=== PATIENT | female | born 1970 | race Asian ===

== ENCOUNTER → 2018-01-06 08:00 | Outpatient (CLI) | payer OTHER, SELFPAY ==
--- NOTE | 2018-01-06 08:04 | HPBI_ITS ---
MAMMOGRAPHY - BILATERAL SCREENING REASON FOR EXAM: Female, 47 years old. Routine annual screening examination. PERTINENT HISTORY: Non-contributory. TECHNIQUE: Digital bilateral breast vandana (3D mammographic acquisition) in the CC and MLO projections. 2-D mediolateral oblique (MLO) and craniocaudad (CC) views of both breasts were obtained. CAD: Full Field Digital Mammography with Computer Added Detection was performed. COMPARISON: None. Baseline examination. FINDINGS: Breast Composition: The breasts are heterogeneously dense, which may obscure small masses. There are no dominant masses or suspicious calcifications. Small benign-appearing bilateral axillary lymph nodes. No other significant abnormalities are identified. HPBI/SCREENING MAMM (CAD), BILAT IMPRESSION: Negative screening mammogram. Yearly followup mammogram recommended. (A) ASSESSMENT CATEGORY: BIRADS Category 2: Benign. A letter regarding these results will be sent to the patient by the facility within 30 days. Approximately 10% of breast cancers are not detected by mammography. A normal mammogram should not delay biopsy of a clinically suspicious abnormality. [id number] Electronically Signed: Moise Sandy MD at 8:15 EDT Tel [phone], Service support ,
== END ==
PROVIDERS: Family Provider Nurse Practitioner; PCP Nurse Practitioner; Visit Provider Nurse Practitioner
DX: Z12.31 Encounter for screening mammogram for malignant neoplasm of breast (principal)
CPT/HCPCS: 77063; 77067

== ENCOUNTER → 2018-05-15 13:30 | Outpatient (CLI) | payer OTHER, SELFPAY ==
[2018-05-15 13:52] LABS: Ferritin 12 ng/mL (8-252); Iron 40 ug/dL (50-170)
== END ==
PROVIDERS: Family Provider Nurse Practitioner; PCP Nurse Practitioner; Visit Provider Nurse Practitioner
DX: D64.9 Anemia, unspecified (principal); E55.9 Vitamin D deficiency, unspecified
CPT/HCPCS: 82728; 83540

== ENCOUNTER → 2018-07-16 12:16 | Outpatient (CLI) | payer OTHER, SELFPAY ==
[2018-07-16 13:27] LABS: Ferritin 20 ng/mL (8-252); Iron 28 ug/dL (50-170)
== END ==
LOC: LAB 12:18
PROVIDERS: Family Provider Nurse Practitioner; PCP Nurse Practitioner; Visit Provider Nurse Practitioner
DX: I10 Essential (primary) hypertension (principal)
CPT/HCPCS: 82728; 83540

== ENCOUNTER → 2018-09-11 09:03 | Outpatient (CLI) | payer OTHER, SELFPAY | LOC: LABSPEC 09:04 | PROVIDERS: Family Provider Nurse Practitioner; PCP Nurse Practitioner; Visit Provider Family Medicine | DX: M54.9 Dorsalgia, unspecified (principal) | CPT/HCPCS: 87086; 87088; 87186 ==

== ENCOUNTER → 2018-10-10 15:53 | Outpatient (CLI) | payer OTHER, SELFPAY ==
[2018-10-10 17:37] LABS: Hematocrit 40.6 % (37-47); Hemoglobin 13.1 g/dl (12.0-15.0); Mean Corp Hgb Conc 32.3 g/gl (32-36); Mean Corpuscular Hgb 26.7 pg (27.0-32.0); Mean Corpuscular Volume 82.9 fL (81-99); Mean Platelet Vol. 11.7 fl (6.2-12.0); Platelet Count 251 K/mm3 (150-450); RBC Distribution Width CV 13.7 % (11.6-14.6); RBC Distribution Width SD 40.8 fl (35.1-43.9); RET-HE 27.7 pg (30-35); Reticulocyte Count 1.44 % (0.5-1.5); White Blood Count 8.2 K/mm3 (4.4-11.0)
[2018-10-10 17:38] LABS: Scan Indicated on CBC? Y/N NO
[2018-10-10 18:01] LABS: ALB/GLOB Ratio 0.8 RATIO (0.9-2.4); AST(SGOT) 14 U/L (15-37); Alanine Aminotransfer ALT/SGPT 18 U/L (13-56); Albumin, Serum 3.4 g/dL (3.2-5.0); Alkaline Phosphatase 77 U/L (45-117); Anion Gap 8 (5-15); BUN 11 mg/dL (7-18); BUN/Creat Ratio 12.9 RATIO (10-20); Calcium,Total 8.2 mg/dL (8.5-10.1); Chloride 109 mmol/L (98-107); Creatinine, Serum 0.85 mg/dL (0.55-1.02); EST Glomerular Filtration Rate 76 mL/min (>60); Erythrocyte Sedimentation Rate 19 mm/hr (0-20); Est Glom Filt Rate - Afr Amer 92 mL/min (>60); Ferritin 6 ng/mL (8-252); Glucose 97 mg/dL (74-106); Iron 40 ug/dL (50-170); Iron Binding Capacity,Total 323 ug/dL (250-450); Potassium 3.9 mmol/L (3.5-5.1); Protein, Total 7.4 g/dL (6.4-8.2); Sodium Level 141 mmol/L (136-145); Thyroid Stim Hormone (TSH) 0.76 uIU/mL (0.358-3.74)
[2018-10-10 18:02] LABS: Vitamin B12 577 pg/mL (211-911); Vitamin D,25 Hydroxy 24.8 ng/mL (29.95-100.01)
--- OUTSIDE RECORDS SUMMARY | 2018-11-26 21:43 | XMS RPT_ITS | Continuity of Care Document ---
:1970 Author Organization [facility] Address [facility] [address] [place] [address] Phone Care Team Providers Name Role Phone Nellie Zaman CNP Unavailable Tanphaichitr - Benavides, Papito Unavailable Isiah Villatoro MD Unavailable Toni Reyes Unavailable Jamir Giordano Unavailable Dr. Kne Todd MD Unavailable Diane Bourgeois Unavailable Unavailable Elle Pugh LPN Unavailable Unavailable Navya Angeles Unavailable Unavailable Jaun Piedra Unavailable Unavailable Sol Robb Unavailable Unavailable Unavailable Unavailable Problems Name Dates Details Abnormal EKG (R94.31, 794.31) Status: Active Allergic to food (Renamed from Food allergy) (Z91.018, V15.05) Comments: ? wheat and what in carackers Status: Active Anemia (D64.9, 285.9) Comments: pt heavy first two days of menses like a bucket, went back to [place], he will watch but continue with iron ferrous fumeraterecent heavy periods Status: Active Anxiety (F41.9, 300.00) Comments: not bad now. no panic attack or nervousness. Status: Active Atypical squamous cells of undetermined significance (ASCUS) on Papanicolaou smear of cervix (R87.610, 795.01) Comments: 04/12 Status: Active BMI 27.0-27.9,adult (Z68.27, V85.23) Status: Active BMI 27.0-27.9,adult (Z68.27, V85.23) Status: Active BMI 28.0-28.9,adult (Z68.28, V85.24) Status: Active Chest pain (R07.9, 786.50) Comments: good now and ekg and ezymes good. not think need sttress will follow if have typical signs and symptoms thenchest pain 2 weeks ago, left sided , sharp, lasted 2 days, no SOB, non radiating , not worse with walking.had it for 1 year. Status: Active Cloudy urine (R82.90, 791.9) Comments: recurrent UTI, had bactrim but not sensi to and then amoxicillin, but still has symptoms and positive urine, will switch nitrofurantoinrecurrent UTISaw Todd gave nitrofurantoin for 1 yr(2 yrs ago)Str gianfranco smeeling urine no burniong, fever, back pain, Status: Active Cold sore (B00.1, 054.9) Status: Active Current nonsmoker (Renamed from Current non-smoker) (Z78.9, V49.89) Status: Active Deliveries (Parity) Comments: 2 Status: Active Dysmenorrhea (N94.6, 625.3) Comments: later in life told use nsaids will try and check us. Status: Active Dysuria (R30.0, 788.1) 11-Nov-2009 Status: Active Encounter for gynecological examination with abnormal finding (Z01.411, V72.31) Status: Active Encounter for screening mammogram for breast cancer (Renamed from Encounter for screening mammogram for malignant neoplasm of breast) (Z12.31, V76.12) Status: Active Female fertility problems (N97.9, 628.9) Comments: pt not want alot done to look at. ? endometriosis. no BC since 2005 aware could still get and would okay with that if happens Status: Active Flank pain (R10.9, 789.09) Status: Active Heart murmur (R01.1, 785.2) Comments: pt states odes get SOB at times and been since 2007 since lat echo will recheck hear the murmur Status: Active Hyperglyceridemia (E78.1, 272.1) Status: Active Hypertension (I10, 401.9) Comments: reveiwed with patient ER report BP was 200/112 and 186/120. now BP better. 130/70. doing good with meds. she added fishoil and vitamins. secondary work up GREGORIA good. labs good await 24 hour urine.Stable on lisnopril hctz, and norvasc Status: Active Hypertension, essential, benign (I10, 401.1) Comments: not taking her bp meds encoruage and cut caffeine Status: Active Hypocalcemia (E83.51, 275.41) Status: Active Hypokalemia (E87.6, 276.8) Status: Active Iron deficiency (E61.1, 280.9) Comments: refuse colonscopy at this point think menses will try treating with iron again if not help then will need colonscopy for sure Status: Active Low back pain without sciatica, unspecified back pain laterality (724.2) Comments: xray in past, done ct scna of abdpelvis--small kidney stone. to urology. not think at this point need mri. will send to Dr. giordano. ewent over exercises to do. aleve 2 bid for 2 weeks. ice 20 mins. Status: Active Menopausal symptom (N95.1, 627.2) Comments: labs are good. with htn not want to do OCP yet. not get pelvic us yet. so will do 2months of progesterone 1 week daily befoe menses and see if can clean out uterus. may not help menstrual cr amps right a way pt aware. then check pelvic us right after a period and see if lining thinner. 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 cramping, menstrual irregularities, cramping to the point of syncope at times Status: Active Microalbuminuria (R80.9, 791.0) Comments: consider lisinopril in futureNeeds good control of BP Status: Active Migraine with aura and without status migrainosus, not intractable (G43.109, 346.00) Comments: see Dr. fontanez and not need meds. Status: Active Painful urination (R30.9, 788.1) Status: Active Pregnancies () Comments: 2 Status: Active Right leg swelling (M79.89, 729.81) Comments: ? lipoatrophy but intermittentXray tibia fibula negativeUS doppler negativeCBC, CMP, D dimer: negativeUS soft tissue leg : WNLIntermitent right leg indentation 4 times since march. 1.5 inchX 1.5 inches.r ight leg sucked in and all feels indented and can feel boneWOrrioed about Bone cancer, leukemia DMNot red or painful.Lasts an hour and resolves by itself.Not happen at the end of the day, can happen an y time of the day.Never had blood clots before, no FH of blod clot.Not hurt or fall downlong car ride may 19, 18 hoiurs, stopped a few times, and niticed indentation since then, also noticing chest pain.chest pain for many yrs Status: Active Unspecified Diagnosis Status: Active Unspecified Diagnosis Status: Active Unspecified Diagnosis Status: Active Urgency of urination (R39.15, 788.63) Status: Active Urinary frequency (R35.0, 788.41) Status: Active Urinary tract infection (N39.0, 599.0) Status: Active Urinary tract infection, site not specified (N39.0, 599.0) 26-Jan-2011 Comments: on cipro from hospital Status: Active UTI (urinary tract infection) (N39.0, 599.0) Status: Active Vaginal bleeding, abnormal (N93.9, 623.8) Comments: DUBPregnancy test negative now.2 periods in 1 monthHeavy bleeding LMP: 07/30/16(normal)LMP: 08/21/16(very heavy, getting heavier, big clots, changing pad once every 2 - 3 hours.No abdominal pain now, b ut had cramps yesterday morning at work. for 10-15 minutes.Some nausea last night.Regular cycle before, 4-5 daysPap smear: Status: Active Vitamin D deficiency, unspecified (E55.9, 268.9) Status: Active Vitamin D overdose (T45.2X1A, 963.5) Comments: Vit [place] 88.5[place] [address] [place], will stop Status: Active Medications Name Dates Details AmLODIPine Besylate 10 MG Oral Tablet 1 (one) Tablet Tablet daily for 0 days Quantity: 30 {Tablet} Refills: 3 Ordered:23-Aug-2016 Luís Daly MD Start : 23-Aug-2016 Active Colace 100 MG Oral Capsule 1 (one) Capsule daily for 30 days Refills: 0 Ordered:20-Jul-2018 Rosiebrandennimesh ARREDONDO, Nellie Del Real CNP, Jessica Start : 20-Jul-2018 Active Ergocalciferol 77486 UNIT Oral Capsule 1 (one) Capsule twice weekly x 3 months for 0 days Quantity: 24 {Capsule} Refills: 0 Ordered:20-May-2018 Austyn [facility]REDONDO[facility] Start : 20-May-2018 Active Ferrous Fumarate 324 (106 Fe) MG Oral Tablet 1 (one) Tablet bid for 0 days Quantity: 60 {Tablet} Refills: 6 Ordered:17-Aug-2018 Austyn ARREDONDO, Nellie Del Real TRAIN OPERATIONS SUPERVISOR, Jessica Start : 17-Aug-2018 Active HydroCHLOROthiazide 50 MG Oral Tablet 1 (one) Tablet qd for 0 days Quantity: 30 {Tablet} Refills: 3 Ordered:23-Aug-2016 Luís Daly MD Start : 23-Aug-2016 Active Lisinopril 40 MG Oral Tablet 1 (one) Tablet daily for 0 days Quantity: 30 {Tablet} Refills: 0 Ordered:26-Jan-2018 Austyn ARREDONDO, Nellie Del Real TRAIN OPERATIONS SUPERVISOR, Jessica Start : 26-Jan-2018 Active Nitrofurantoin Macrocrystal 50 MG Oral Capsule 1 Capsule every hs for 0 days Quantity: 30 {Capsule} Refills: 3 Ordered:22-Feb-2018 Austyn ARREDONDO, Nellie Del Real TRAIN OPERATIONS SUPERVISOR, Jessica Start : 22-Feb-2018 Active ALBUTEROL SULFATE HFA, 108MCG/ACT (Inhalation Aerosol Soln) 2 (two) Aerosol Soln qid prn for 0 days Quantity: 1 {Aerosol_Soln} Refills: 0 Ordered:22-May-2007 Sharita Pradhan Start : 22-May-2007 End : 31-Oct-2007 Inactive AMITRIPTYLINE HCL, 25MG (Oral Tablet) 1 qhs prn migraines (25 MG) Inactive Comments:Dr. Filiberto Ramon Amoxicillin 875 MG Oral Tablet 1 (one) Tablet bid for 10 days Quantity: 20 {Tablet} Refills: 0 Ordered:22-Jan-2018 Austyn ARREDONDO, Nellie Del Real CNP, Jessica Start : 22-Jan-2018 End : 01-Feb-2018 Inactive AUGMENTIN, 875-125MG (Oral Tablet) 1 (one) Tablet bid for 0 days Quantity: 20 {Tablet} Refills: 0 Ordered:21-Jul-2008 Navya Schultz LPN Start : 21-Jul-2008 End : 21-Oct-2009 Inactive Bactrim DS 800-160 MG Oral Tablet 1 (one) Tablet BID for 7 days Quantity: 14 {Tablet} Refills: 0 Ordered:22-Dec-2017 Austyn ARREDONDO, Nellie Del Real CNP, Nellie Gupta Start : 22-Dec-2017 End : 29-Dec-2017 Inactive NQINWAAKZN-BLTD-CLTYGYOY, 50-325-40MG (Oral Tablet) 1 q 8 hours prn headache (50-325-40 MG) Inactive CELEXA, 20MG (Oral Tablet) Tablet daily for 0 days Quantity: 30 {Tablet} Refills: 0 Ordered:20-Aug-2008 Navya Schultz LPN Start : 20-Aug-2008 End : 21-Oct-2009 Inactive Cipro 500 MG Oral Tablet 1 (one) Tablet BID for 7 days Quantity: 14 {Tablet} Refills: 0 Ordered:13-Sep-2016 Luís Daly MD Start : 13-Sep-2016 End : 20-Sep-2016 Inactive Ciprofloxacin HCl 500 MG Oral Tablet 1 (one) Tablet bid for 14 days Quantity: 28 {Tablet} Refills: 0 Ordered:27-Nov-2017 Kelsi Ortiz Start : 22-Nov-2017 End : 27-Nov-2017 Inactive CLARINEX, 5MG (Oral Tablet) 1 (one) Tablet qd for 0 days Refills: 0 Ordered:22-May-2007 Sharita Pradhan Start : 22-May-2007 End : 31-Oct-2007 Inactive Drisdol 82823 UNIT Oral Capsule uad Capsule twice a week for 2months then once a week for 0 days Quantity: 12 {Capsule} Refills: 4 Ordered:28-Nov-2016 Tati Painter LPN Start : 12-Jan-2016 End : 28-Nov-2016 Inactive Ferrous Sulfate 324 (65 Fe) MG Oral Tablet Delayed Release 1 (one) Tablet DR Tablet DR three times daily for 30 days Quantity: 90 {Tablet} Refills: 3 Ordered:28-Nov-2016 Long SUPPORT DBABubban L Start : 23-Aug-2016 End : 28-Nov-2016 Inactive Comments:add vitamin C 1000 mg when take iron FROVA, 2.5MG (Oral Tablet) 1 (one) Tablet UAD prn migraines for 0 days Quantity: 10 {Tablet} Refills: 3 Ordered:02-Jun-2010 Navya Schutlz LPN Start : 07-Apr-2010 Inactive HYDROCHLOROTHIAZIDE, 25MG (Oral Tablet) 1 (one) Tablet daily for 0 days Quantity: 30 {Tablet} Refills: 2 Ordered:17-Feb-2015 Long SUPPORT DBA Tati L Start : 04-Feb-2015 End : 17-Feb-2015 Inactive IMITREX, 100MG (Oral Tablet) 1 (one) Tablet PRN for 0 days Quantity: 10 {Tablet} Refills: 2 Ordered:02-Jun-2010 Navya Schultz LPN Start : 21-Oct-2009 Inactive Comments:if chest pain or short of breath to ER Labetalol HCl 200 MG Oral Tablet 2 (two) Tablet two times daily for 30 days Quantity: 90 {Tablet} Refills: 3 Ordered:26-Jan-2018 Elle Pugh LPN Start : 23-Aug-2016 End : 26-Jan-2018 Inactive MACROBID, 100MG (Oral Capsule) 1 Capsule BID for 14 days then prn intercourse for 0 days Quantity: 30 {Capsule} Refills: 1 Ordered:27-Mar-2012 SHANDA Alvarez Start : 26-Jan-2011 End : 27-Mar-2012 Inactive METOPROLOL SUCCINATE ER, 100MG (Oral Tablet Extended Release 24 Hour) 1 (one) Tablet ER 24HR q12hr for 0 days Quantity: 60 {Tablet} Refills: 3 Ordered:17-Feb-2015 Long SUPPORT DBABubban L Start : 04-Feb-2015 End : 17-Feb-2015 Inactive NASACORT AQ, 55MCG/ACT (Nasal Aerosol Solution) 2 (two) Aerosol Soln qd for 0 days Refills: 0 Ordered:22-May-2007 Sharita Pradhan Start : 22-May-2007 End : 31-Oct-2007 Inactive NEXIUM, 40MG (Oral Capsule Delayed Release) Capsule DR QD for 0 days Refills: 0 Ordered:10-Apr-2007 Sharita Pradhan Start : 10-Apr-2007 End : 31-Oct-2007 Inactive Nitrofurantoin Monohyd Macro 100 MG Oral Capsule 1 (one) Capsule q12hrs for 7 days Quantity: 14 {Capsule} Refills: 0 Ordered:26-Jan-2018 Austyn ARREDONDO, Nellie Del Real CNP, Nellie Gupta Start : 26-Jan-2018 End : 02-Feb-2018 Inactive PERCOCET, 5-325MG (Oral Tablet) 1 (one) Tablet x1 for 0 days Quantity: 1 {Tablet} Refills: 0 Ordered:27-Mar-2012 SHANDA Alvarez Start : 02-Jun-2010 End : 27-Mar-2012 Inactive PROMETHAZINE HCL, 12.5MG (Oral Tablet) 1 (one) Tablet x 1 for 0 days Quantity: 1 {Tablet} Refills: 0 Ordered:27-Mar-2012 SHANDA Alvarez Start : 02-Jun-2010 End : 27-Mar-2012 Inactive Prometrium 200 MG Oral Capsule 1 (one) Capsule Capsule daily for 7 days prior to when menses is due. for 0 days Quantity: 14 {Capsule} Refills: 2 Ordered:28-Nov-2016 Tati Painter LPN Start : 12-Jan-2016 End : 28-Nov-2016 Inactive Pyridium 100 MG Oral Tablet 1 (one) Tablet tid for 2 days Quantity: 6 {Tablet} Refills: 0 Ordered:22-Nov-2017 Lawanda Pizarro DO Start : 22-Nov-2017 End : 24-Nov-2017 Inactive RELPAX, 20MG (Oral Tablet) 1 (one) Tablet Tablet take one if migrain repeat in 2 hours if GARCIA recurs for 0 days Quantity: 30 {Tablet} Refills: 0 Ordered:17-Feb-2015 Tati Painter LPN Start : 16-Jan-2015 End : 17-Feb-2015 Inactive Comments:Max 4 pills in one day TOPROL XL, 100MG (Oral Tablet Extended Release 24 Hour) 1 Tablet ER 24HR daily for 0 days Quantity: 90 {Tablet} Refills: 3 Ordered:17-Feb-2015 Tati Painter LPN Start : 17-Mar-2014 End : 17-Feb-2015 Inactive Vicodin ES 7.5-300 MG Oral Tablet 1 (one) Tablet Tablet q6-8hrs prn for 0 days Quantity: 30 {Tablet} Refills: 0 Ordered:22-Nov-2017 Elle Pugh LPN Start : 28-Nov-2016 End : 22-Nov-2017 Inactive VICODIN, 5-300MG (Oral Tablet) 1 (one) Tablet Tablet q8hrs prn for headache for 0 days Quantity: 30 {Tablet} Refills: 0 Ordered:17-Feb-2015 Tati Painter LPN Start : 03-Feb-2015 End : 17-Feb-2015 Inactive Vitamin D3 5000 UNIT Oral Capsule 1 (one) Capsule weekly for 0 days Quantity: 4 {Capsule} Refills: 1 Ordered:28-Nov-2016 Tati Painter LPN Start : 30-Aug-2016 End : 28-Nov-2016 Inactive ZOMIG ZMT, 2.5MG (Oral Tablet Dispersible) 1 (one) Tablet Disperse Tablet Disperse take one with migraine, repeat in 2 hours if headache recurs for 0 days Quantity: 30 {Tablet} Refills: 0 Ordered:17-Feb-2015 Tait Painter LPN Start : 04-Feb-2015 End : 17-Feb-2015 Inactive Comments:Max 10mg in 24hours ATENOLOL, 25MG (Oral Tablet) 1 (one) Tablet qd for 0 days Quantity: 30 {Tablet} Refills: 5 Ordered:02-Mar-2012 Kait Medrano MD Start : 02-Mar-2012 End : 02-Mar-2012 Discontinued CEPHALEXIN, 500MG (Oral Tablet) 1 (one) Tablet qd for 0 days Quantity: 7 {Tablet} Refills: 0 Ordered:16-Jan-2015 Temi Hill LPN Start : 01-Apr-2014 End : 16-Jan-2015 Discontinued Comments:Dr Suri landaverde CLARITIN, 10MG (Oral Tablet) 1 QD PRN for 0 days Refills: 0 Ordered:04-Dec-2007 Jumana Mon Start : 04-Dec-2007 End : 24-Jul-2008 Discontinued COMPOUNDING CREAM (DUAL ACTION: AMANTADINE 8%, DICLOFENAC 3%, BACLOFEN2% CYCLOBENZAPRINE 2% GABAPENTIN 10%, BUPIVACAINE 5%) (External Cream) (Free Text) 1 (one) Cream bid for 0 days Quantity: 240 {Gram} Refills: 0 Ordered:16-Jan-2015 Temi Hill LPN Start : 10-Jul-2014 End : 16-Jan-2015 Discontinued Comments:printed and faxed to [facility], [facility] not carry Fish, Flax Borage 1 qd End : 03-Feb-2015 Discontinued Comments:1200mg/omega 3-6-9 FLEXERIL, 10MG (Oral Tablet) Tablet TID/PRN for 0 days Quantity: 20 {Tablet} Refills: 0 Ordered:07-Jan-2008 Jumana Mon Start : 07-Jan-2008 End : 24-Jul-2008 Discontinued LISINOPRIL-HYDROCHLOROTHIAZIDE, 10-12.5MG (Oral Tablet) 1 Tablet bid for 0 days Quantity: 180 {Tablet} Refills: 0 Ordered:01-Apr-2014 Kait Medrano MD Start : 01-Apr-2014 End : 01-Apr-2014 Discontinued NORVASC, 5MG (Oral Tablet) 1 Tablet daily for 0 days Quantity: 90 {Tablet} Refills: 3 Ordered:16-Jan-2015 Temi Hill LPN Start : 16-Jan-2014 End : 16-Jan-2015 Discontinued TESSALON, 200MG (Oral Capsule) 1 (one) Capsule TID for 0 days Quantity: 30 {Capsule} Refills: 0 Ordered:31-Oct-2007 SHANDA Alvarez Start : 31-Oct-2007 End : 04-Dec-2007 Discontinued Comments:do not take until preg test neg WOMENS DAILY FORMULA (Oral Tablet) 1 qd End : 03-Feb-2015 Discontinued Zovirax 5 % External Cream uad Cream to affected area(s) prn for 0 days Quantity: 1 {Tube} Refills: 0 Ordered:18-Oct-2017 Sol Robb Start : 31-Aug-2016 End : 18-Oct-2017 Discontinued Allergies and Adverse Reactions Name Dates Details No Known Drug Allergies (Allergy) Onset: 19-Jan-2015 Status: Active Vicodin ? - nausea (Allergy) Status: Active Past Medical History Name Dates Details Abdominal pain, acute, left lower quadrant (R10.32, 789.04) Comments: ? related to uti, no red flag signs and symptoms told pt multiple somatic complaints--need to work few at time can not adequately cover all in one visist told red flags to go to ER Status: Resolved as of 07-Apr-2009 Abnormal laboratory test (796.4) Status: Inactive as of 03-Jan-2014 Acute sinusitis (J01.90, 461.9) Status: Resolved as of 07-Apr-2009 Allergic rhinitis (J30.9, 477.9) Comments: would restart has signs and symptoms with voice decrease and inner ear dizzy.-- restart meds Status: Resolved as of 07-Apr-2009 Allergic rhinitis due to other allergen (J30.89, 477.8) Comments: handout given Status: Resolved as of 07-Apr-2009 BMI 27.0-27.9,adult (Z68.27, V85.23) Status: Inactive as of 18-Dec-2017 Bronchitis (J40, 490) Status: Resolved as of 07-Apr-2009 Cough (R05, 786.2) Status: Resolved as of 07-Apr-2009 Dizziness (R42, 780.4) Comments: still have some on and off since uri. talk about related viral ? migraine Status: Resolved as of 07-Apr-2009 Elevated blood pressure (not hypertension) (R03.0, 796.2) Status: Inactive as of 03-Jan-2014 Encounter for general adult medical examination with abnormal findings (Z00.01, V70.0) Comments: 2014 pap and hpbv neg wants to wait another year because has menses. refuse mammo today will wait Status: Inactive as of 12-Jan-2016 Headache, Analgesic Rebound (784.0) Comments: quit all otc analgesics Status: Inactive as of 29-Aug-2013 Leg weakness (M62.81, 729.89) Comments: neuro negative will send to ER with HTN urgency. talk to Dr. soria will see and CT scan head. Status: Inactive as of 03-Jan-2014 Migraine (G43.909, 346.90) Comments: better now with BP down CT scan 4-15. Status: Inactive as of 14-Dec-2015 Nausea (R11.0, 787.02) Comments: hold off on iron pill for several weeks Status: Inactive as of 14-Dec-2015 Nausea & vomiting (R11.2, 787.01) Comments: resolved Status: Resolved as of 20-Aug-2008 Other chest pain (R07.89, 786.59) Comments: still get sharp pain in chest. atypical. had for longtime. work up in past. will try toprol instead of atenelol Status: Inactive as of 29-Aug-2013 Palpitations (R00.2, 785.1) Status: Inactive as of 29-Aug-2013 Paresthesia (R20.2, 782.0) Comments: stable Status: Inactive as of 03-Jan-2014 Pharyngitis, acute (J02.9, 462) Status: Resolved as of 07-Apr-2009 Pharyngitis, acute (J02.9, 462) Status: Resolved as of 07-Apr-2009 Screening for HPV (human papillomavirus) (Z11.51, V73.81) Status: Inactive as of 14-Mar-2016 Shortness of breath at rest (R06.02, 786.05) Status: Resolved as of 07-Apr-2009 Unspecified Diagnosis Status: Inactive as of 29-Sep-2015 Unspecified Diagnosis Status: Inactive as of 29-Sep-2015 Vomiting (R11.10, 787.03) Status: Inactive as of 22-Dec-2017 Wheezing (R06.2, 786.07) Comments: think allergies demetris done today was normal Status: Resolved as of 07-Apr-2009 wwv V73.21 Status: Inactive as of 29-Aug-2013 WWV V73.21 Status: Inactive as of 29-Sep-2015 Procedures Procedure Dates Details Appendectomy Completed Section Completed Date Value Details 06-Jan-2018 SCREENING MAMM (CAD), BILAT Result: Comments: See Note; NOTES: [facility] Imaging Services [address] [place] [address] SCREENING MAMM (CAD), BILAT MR#: [id number] Acct: [id number] Name: ЕЛЕНА VELARDE Rep # : [id number] : 1970 F 47 From: Moise Sandy MD PCP: Nellie Zaman NP Status: REG CLI Study: SCREENING MAMM (CAD), BILAT Date of Exam: 01/06/18 Exam# [id number] Ordering Dr: Nellie Zaman [facility] MOGRAPHY - BILATERAL SCREENING REASON FOR EXAM: Female, 47 years old. Routine annual screening examination. PERTINENT HISTORY: Non-contributory. TECHNIQUE: Digital bilateral breast vandana (3D mammograp hic acquisition) in the CC and MLO projections. 2-D mediolateral oblique (MLO) and craniocaudad (CC) views of both breasts were obtained. CAD: Full Field Digital Mammography with Computer Added Detectio n was performed. COMPARISON: None. Baseline examination. FINDINGS: Breast Composition: The breasts are heterogeneously dense, which may obscure small masses. There are no dominant masses or suspicious calcifications. Small benign-appearing bilateral axillary lymph nodes. No other significant abnormalities are identified. ORD ER #: [id number] HPBI/SCREENING MAMM (CAD), BILAT IMPRESSION: Negative screening mammogram. Yearly followup mammogram recommended. (A) ASSESSMENT CATEGORY: BIRADS Ca tegory 2: Benign. A letter regarding these results will be sent to the patient by the facility within 30 days. Approximately 10% of breast cancers are not detected by mammography. A normal mammogram sh ould not delay biopsy of a clinically suspicious abnormality. [id number] Electronically Signed: Moise Sandy MD at 8:15 EDT Tel [phone], Service support , Fax CC: Nellie Zaman NP Sales Facilitator: Signed 23-Aug-2016 Transvaginal Non- Result: Comments: See Note; NOTES: [facility] Imaging Services [address] [place] [address] Verdana 4d Transvaginal Non- MR#: [id number] Acct: [id number] Name: NICKI VELARDE Rep #: [id number] : 1970 F 46 From: Setve David DO PCP: Luís Daly Status: REG CLI Study: Transvaginal Non- Date of Exam: 08/23/16 Exam# [id number] Ordering Dr: Luís Daly STUDY: ULTRASOUND TRANSVAGINAL CLINICAL: Female, 46 years old. Heavy bleeding with clots TECHNIQUE: Transvaginal COMPARISON: None. FINDINGS: Normal uterine size measu ring 13.5 x 5.9 x 5.2 cm in maximal craniocaudal dimension. Questionable ill-defined posterior fibroid measuring 3.4 x 3.2 x 2.4 cm.. Normal endometrial thickness measuring 7 mm. There are no endometri al masses, and there is no fluid in the endometrial cavity. Acoustic shadowing patterns suggesting possible adenomyosis. Nabothian cysts of the uterine cervix. Normal right ovary, measuring 2.4 x 1.9 x 1.7 cm. There is a 1.3 x 0.8 x 0.9 cm cyst. Normal left ovary, measuring 3.1 x 2.1 x 2.1 cm. There are multiple follicles without a dominant cyst. There is no free fluid in the pelvis. US/Transvaginal Non- IMPRESSION: Possible adenomyosis. Possible posterior ill-defined fibroid. Right ovarian cyst. Electronically Signed: Steve David DO at 18:58 EDT Tel [phone], Service support [phone], CC: Luís Daly Sales Facilitator: Signed 23-Aug-2016 Abdomen/Pelvis without Cont Result: Comments: See Note; NOTES: [facility] Imaging Services [address] [place] [address] Verdana 4d Abdomen/Pelvis without Cont MR#: [id number] Acct: [id number] Name: Esdras VELARDE Rep #: [id number] : 1970 F 46 From: Moise Sandy MD PCP: Luís Daly Status: REG CLI Study: Abdomen/Pelvis without Cont Date of Exam: 08/23/16 Exam# [id number] Ordering Dr: Mili Daly STUDY: CT ABDOMEN AND PELVIS WITHOUT CONTRAST REASON FOR EXAM: Female, 46 years old. 3 month history of hematuria and cloudy urine. RADIATION DOSAGE (If Supplied By Facility): CTDIvol = ( 6.27 ) mGy, DLP = ( 270.80 ) mGycm TECHNIQUE: Transaxial images were obtained from the dome of the diaphragm to the symphysis pubis without oral contrast, and without intravenous contrast. Sagittal and cor onal images were reconstructed. Individualized dose optimization techniques were used for this CT. COMPARISON: None. FINDINGS: The visualized lung bases are unrema rkable. The visualized portions of the heart are within normal limits. Normal liver. Normal gallbladder and extrahepatic biliary system. Normal spleen. Normal pancreas. Normal bilateral adrenal glands . Normal right kidney. Normal left kidney. Normal visualized stomach. Normal small intestine. Scattered sigmoid diverticula. There are surgical clips in the region of the appendix consistent with a pr ior appendectomy. Normal abdominal aorta. Normal inferior vena cava. Normal retroperitoneum. Normal urinary bladder. Normal abdominal wall. Normal osseous structures. ___ CT/Abdomen/Pelvis without Cont IMPRESSION: Scattered sigmoid diverticula. Electronically Signed: Moise Sandy MD at 13:54 EDT Tel [phone], Service support [phone], CC: Luís Daly Sales Facilitator: Signed 23-Aug-2016 Pelvic (Non ) Result: Comments: See Note; NOTES: [facility] Imaging Services [address] [place] [address] Verdana 4d Pelvic (Non ) MR#: [id number] Acct: [id number] Name: ЕЛЕНА VELARDE Rep #: [id number] : 1970 F 46 From: Steve David DO PCP: Luís Daly Status: REG CLI Study: Pelvic (Non ) Date of Exam: 08/23/16 Exam# [id number] Ordering Dr: Luís Daly STUDY: ULTRASO UND TRANSVAGINAL CLINICAL: Female, 46 years old. Heavy bleeding with clots TECHNIQUE: Transvaginal COMPARISON: None. FINDINGS: Normal uterine size measuring 13. 5 x 5.9 x 5.2 cm in maximal craniocaudal dimension. Questionable ill-defined posterior fibroid measuring 3.4 x 3.2 x 2.4 cm.. Normal endometrial thickness measuring 7 mm. There are no endometrial jamee s, and there is no fluid in the endometrial cavity. Acoustic shadowing patterns suggesting possible adenomyosis. Nabothian cysts of the uterine cervix. Normal right ovary, measuring 2.4 x 1.9 x 1.7 cm . There is a 1.3 x 0.8 x 0.9 cm cyst. Normal left ovary, measuring 3.1 x 2.1 x 2.1 cm. There are multiple follicles without a dominant cyst. There is no free fluid in the pelvis. US/Pelvic (Non ) IMPRESSION: Possible adenomyosis. Possible posterior ill-defined fibroid. Right ovarian cyst. Electronically Signed: Steve David DO 5 at 18:58 EDT Tel [phone], Service support [phone], CC: Luís Daly Sales Facilitator: Signed 16-Jun-2016 Extremity Non Vasc Complete Result: Comments: See Note; NOTES: [facility] Imaging Services [address] [place] [address] Verdana 4d Extremity Non Vasc Complete MR#: [id number] Acct: [id number] Name: Esdras VELARDE Rep #: [id number] : 1970 F 45 From: Anahy Marrufo MD PCP: Luís Daly Status: REG CLI Study: Extremity Non Vasc Complete Date of Exam: 06/16/16 Exam# [id number] Ordering Dr: Luís Daly STUDY: SUPERFICIAL ULTRASOUND - ANTERIOR RIGHT LEG REASON FOR EXAM: Female, 46 years old. The patient has a indentation in the soft tissues of the right anterior leg intermittently. This is not presen t currently. TECHNIQUE: A superficial ultrasound was performed with real-time and static jeter-scale imaging. COMPARISON: Are radiographs of the right leg dated June 08, 2016. FINDINGS: Multiple static jeter images of the palpable abnormality reveal no evidence or abnormality. US/Extremity Non Vasc Comple te IMPRESSION: No sonographic evidence for mass. Electronically Signed: Anahy Marrufo MD at 4:04 EDT , Service support [phone], CC: Luís Daly Sales Facilitator: Signed 15-Jun-2016 Nuclear Stress Test - Treadmil Result: Comments: See Note; NOTES: [facility] Imaging Services [address] [place] [address] Verdana 4d Nuclear Stress Test - Treadmil MR#: [id number] Acct: [id number] Name: ЕЛЕНА SIMMONS Rep #: [id number] : 1970 45 From: George Rordiguez MD Primary Care: Luís Daly Status: REG CLI Ordering Dr: Luís Daly Sex: F A DATE OF SERVICE: A 45-year-old with a history of ch est pain. Resting EKG demonstrates normal sinus rhythm with a rate of 78 beats per minute. Normal intervals are noted. Resting blood pressure was 132/84. The patient exercised according to a regular Br uce protocol for a total duration of 10 minutes completing 1 minute into stage 4 of the Cliff protocol. The maximum heart rate attained was 148 beats per minute, which was 84% of maximum predicted heart rate. Maximum workload attained was 12.6 METs. At rest, there were no ST or T- wave changes noted to suggest ischemia. At peak exercise, upsloping ST changes were noted, which did not meet the criteria for ischemia. During recovery, diffuse T-wave inversions were noted in the inferolateral leads. No clinical angina was noted. The test was terminated due to leg fatigue. Resting blood pressure was 132/8 4 with a peak blood pressure of 152/96. No clinical angina was noted. MYOCARDIAL PERFUSION PROTOCOL: 11.5 mCi of sestamibi was injected at rest. The patient exercised according to a regular Cliff jaime col for a total duration of 10 minutes attaining 84% of maximum predicted heart rate and a workload of 12.6 METs. At peak exercise, 34.0 mCi of sestamibi was injected. Stress images were obtained. Stres s and rest images were reconstructed and compared in the short axis, vertical long and horizontal long axes. Gated images were also obtained. PERFUSION SPECT ANALYSIS: Review of the images demonstrated normal uptake of tracer noted in all areas of the myocardium. The resting images similarly demonstrated normal uptake of tracer noted in all areas of the myocardium. No areas of reversibility are noted to suggest ischemia. GATED SPECT ANALYSIS: The gated ejection fraction is noted to be 80%. CONCLUSION: 1. Normal exercise myocardial perfusion stress test at a high workload. 2. Preserved ejection fr action. 3. No clinical angina present. George Rodriguez MD T: NTS JOB: [id number] 06/17/16 08 <Electronically signed by George Rodriguez MD> Date ___ George Rodriguez MD CC: Luís Daly Date Dictated: 06/15/16902 Date Transcribed: 06/15/16902 Sales Facilitator: Signed 08-Jun-2016 Venous Duplex Lower Extremity Result: Comments: See Note; NOTES: [facility] Cardiovascular Services [address] [place] [address] Venous Duplex US, Unilateral 06/08/16 1300 MR#: [id number] Acct: [id number] Name: ЕЛЕНА VELARDE Rep #: [id number] : 1970 45 From: Karthik Cohn MD Attending Dr: Luís Daly Status: REG CLI Ordering Dr: Luís Daly Date: 06/08/16 Location: [facility] Sex: F A Admitted: Katiana son For Study: RLE Swelling RIGHT LEFT GSV is normal. CFV is compressible, spontaneous, phasic , CFV is compressible, spontaneous, phasic, competent, and demonstrates normal competent and demonstrates normal augmentation. augmentation. FV is compressible, spontaneous, phasic, competent and demonstrates normal augmentation. POP V is compressible, spontaneous, phasic, competent and demonstrates normal augmentation. T/P Trunk is compressible. PTV is compressible. RT PerV is compressible. Procedure Exam performed in department. A preliminary report was called and/or faxed to Dr. Daly. Interpretation S ummary Deep veins of the right lower extremity are patent and compressible segmentally. There is no evidence of right lower extremity deep vein thrombosis. Valvular competence appears intact within the proximal deep venous system on the right . The right greater saphenous vein appears patent and compressible segmentally. Ordering Physician: Luís Daly Referring Physician: Kait Medrano Performed By: Marilyn Crisostomo, RDCS, RVT 06/08 Date Karthik Cohn MD CC: Kait Medrano MD; Luís Daly Date Dictated: 06/08/16 1300 Date Transcribed: 06/08/161816 Sales Facilitator: Signed 08-Jun-2016 Tibia AND Fibula 2 Views Result: Comments: See Note; NOTES: [facility] Imaging Services [address] [place] [address] Verdana 4d Tibia AND Fibula 2 Views MR#: [id number] Acct: [id number] Name: NEAL VELARDE LAY Rep #: [id number] : 1970 F 45 From: Reed Tapia MD PCP: Kait Medrano MD Status: REG CLI Study: Tibia AND Fibula 2 Views Date of Exam: 06/08/16 Exam# [id number] Ordering Dr: Luís Daly STUDY: X-RAY - RIGHT TIBIA AND FIBULA REASON FOR EXAM: Female, 45 years old. RT LEG DEFORMITY COMES AND GOES MID TIB FIB TECHNIQUE: 2 view(s) of the tibia and fibula were obtained. COMPARISON: None. FINDINGS: Normal visualized tibia. Normal visualized fibula. The soft tissue structures are unremarkable. RAD/Tibia AND Fibula 2 Views IMPRESSION: Normal x-ray examination of the tibia and fibula. 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 Status: Active Smoking Status Name Dates Details Never smoker Vital Signs Date Test Result Details [id number] Comments: rechecked bp with automatic cuff- 217/135 Temperature 98.2 f Comments: Method: Temporal Pulse 82 /min Comments: Pattern: Regular Respiration Rate 17 /min Comments: Pattern: Unlabored O2 SAT 96 % Comments: Room air BP Systolic 192 mm[Hg] Comments: Patient Position: Sitting; Cuff Location: Left Arm; Cuff Size: Standard BP Diastolic 122 mm[Hg] Comments: Patient Position: Sitting; Cuff Location: Left Arm; Cuff Size: Standard Weight 124.375 lb Height 55 in Body Mass Index Calculated 28.91 kg/m2 Body Surface Area Calculated 1.43 m2 :49 Temperature 97.7 f Pulse 86 /min Comments: Pattern: Regular Respiration Rate 17 /min Comments: Pattern: Unlabored O2 SAT 98 % Comments: Room air BP Systolic 122 mm[Hg] Comments: Patient Position: Sitting; Cuff Location: Left Arm; Cuff Size: Standard BP Diastolic 82 mm[Hg] Comments: Patient Position: Sitting; Cuff Location: Left Arm; Cuff Size: Standard Weight 120.25 lb Height 55 in Body Mass Index Calculated 27.95 kg/m2 Body Surface Area Calculated 1.41 m2 :49 Temperature 97.9 f Pulse 78 /min Comments: Pattern: Regular Respiration Rate 16 /min Comments: Pattern: Unlabored O2 SAT 98 % Comments: Room air BP Systolic 132 mm[Hg] Comments: Patient Position: Sitting; Cuff Location: Left Arm; Cuff Size: Standard BP Diastolic 76 mm[Hg] Comments: Patient Position: Sitting; Cuff Location: Left Arm; Cuff Size: Standard Weight 118 lb Height 55 in Body Mass Index Calculated 27.43 kg/m2 Body Surface Area Calculated 1.4 m2 :41 Temperature 98.2 f Pulse 73 /min Comments: Pattern: Regular Respiration Rate 16 /min Comments: Pattern: Unlabored O2 SAT 99 % Comments: Room air BP Systolic 124 mm[Hg] Comments: Patient Position: Sitting; Cuff Location: Left Arm; Cuff Size: Standard BP Diastolic 82 mm[Hg] Comments: Patient Position: Sitting; Cuff Location: Left Arm; Cuff Size: Standard Weight 118 lb Height 55 in Body Mass Index Calculated 27.43 kg/m2 Body Surface Area Calculated 1.4 m2 :38 Comments: waist 33 Temperature 97.8 f Pulse 63 /min Comments: Pattern: Regular Respiration Rate 18 /min Comments: Pattern: Unlabored O2 SAT 99 % Comments: Room air BP Systolic 118 mm[Hg] Comments: Patient Position: Sitting; Cuff Location: Left Arm; Cuff Size: Standard BP Diastolic 82 mm[Hg] Comments: Patient Position: Sitting; Cuff Location: Left Arm; Cuff Size: Standard Weight 118 lb Height 55 in Body Mass Index Calculated 27.43 kg/m2 Body Surface Area Calculated 1.4 m2 :02 Temperature 97.6 f Pulse 89 /min Comments: Pattern: Regular Respiration Rate 16 /min Comments: Pattern: Unlabored O2 SAT 98 % Comments: Room air BP Systolic 142 mm[Hg] Comments: Patient Position: Sitting; Cuff Location: Left Arm; Cuff Size: Standard BP Diastolic 98 mm[Hg] Comments: Patient Position: Sitting; Cuff Location: Left Arm; Cuff Size: Standard Weight 119 lb Height 55 in Body Mass Index Calculated 27.66 kg/m2 Body Surface Area Calculated 1.41 m2 :33 Pulse 80 /min Comments: Pattern: Regular Respiration Rate 18 /min Comments: Pattern: Unlabored O2 SAT 99 % Comments: Room air BP Systolic 132 mm[Hg] Comments: Patient Position: Sitting; Cuff Location: Left Arm; Cuff Size: Standard BP Diastolic 76 mm[Hg] Comments: Patient Position: Sitting; Cuff Location: Left Arm; Cuff Size: Standard Weight 119 lb Height 55 in Body Mass Index Calculated 27.66 kg/m2 Body Surface Area Calculated 1.41 m2 :21 Pulse 76 /min Comments: Pattern: Regular BP Systolic 132 mm[Hg] Comments: Patient Position: Sitting; Cuff Location: Left Arm; Cuff Size: Standard BP Diastolic 84 mm[Hg] Comments: Patient Position: Sitting; Cuff Location: Left Arm; Cuff Size: Standard :21 Pulse 69 /min Comments: Pattern: Regular BP Systolic 128 mm[Hg] Comments: Patient Position: Supine; Cuff Location: Left Arm; Cuff Size: Standard BP Diastolic 78 mm[Hg] Comments: Patient Position: Supine; Cuff Location: Left Arm; Cuff Size: Standard :30 Temperature 97.8 f Comments: Method: Temporal Pulse 70 /min Comments: Pattern: Regular Respiration Rate 16 /min Comments: Pattern: Unlabored O2 SAT 98 % Comments: Room air BP Systolic 162 mm[Hg] Comments: Patient Position: Sitting; Cuff Location: Left Arm; Cuff Size: Standard BP Diastolic 84 mm[Hg] Comments: Patient Position: Sitting; Cuff Location: Left Arm; Cuff Size: Standard Weight 119 lb Height 55 in Body Mass Index Calculated 27.66 kg/m2 Body Surface Area Calculated 1.41 m2 :57 Temperature 96.6 f Comments: Method: Temporal Pulse 91 /min Comments: Pattern: Regular Respiration Rate 16 /min Comments: Pattern: Unlabored O2 SAT 98 % Comments: Room air BP Systolic 140 mm[Hg] Comments: Patient Position: Sitting; Cuff Location: Left Arm; Cuff Size: Standard BP Diastolic 62 mm[Hg] Comments: Patient Position: Sitting; Cuff Location: Left Arm; Cuff Size: Standard Weight 116 lb Height 55 in Body Mass Index Calculated 26.96 kg/m2 Body Surface Area Calculated 1.39 m2 :14 Temperature 98 f Comments: Method: Temporal Pulse 90 /min Comments: Pattern: Regular Respiration Rate 16 /min Comments: Pattern: Unlabored O2 SAT 99 % Comments: Room air BP Systolic 118 mm[Hg] Comments: Patient Position: Sitting; Cuff Location: Left Arm; Cuff Size: Standard BP Diastolic 70 mm[Hg] Comments: Patient Position: Sitting; Cuff Location: Left Arm; Cuff Size: Standard Weight 117 lb Height 55 in Body Mass Index Calculated 27.19 kg/m2 Body Surface Area Calculated 1.4 m2 :11 Temperature 97.8 f Comments: Method: Temporal Pulse 72 /min Comments: Pattern: Regular Respiration Rate 16 /min Comments: Pattern: Unlabored O2 SAT 97 % Comments: Room air BP Systolic 116 mm[Hg] Comments: Patient Position: Sitting; Cuff Location: Left Arm; Cuff Size: Standard BP Diastolic 68 mm[Hg] Comments: Patient Position: Sitting; Cuff Location: Left Arm; Cuff Size: Standard Weight 118 lb Height 55 in Body Mass Index Calculated 27.43 kg/m2 Body Surface Area Calculated 1.4 m2 :18 Temperature 97.6 f Comments: Method: Temporal Pulse 78 /min Comments: Pattern: Regular Respiration Rate 18 /min Comments: Pattern: Unlabored O2 SAT 98 % Comments: Room air BP Systolic 142 mm[Hg] Comments: Patient Position: Sitting; Cuff Location: Left Arm; Cuff Size: Standard BP Diastolic 84 mm[Hg] Comments: Patient Position: Sitting; Cuff Location: Left Arm; Cuff Size: Standard Weight 117 lb Height 55 in Body Mass Index Calculated 27.19 kg/m2 Body Surface Area Calculated 1.4 m2 :16 Temperature 97.6 f Comments: Method: Temporal Pulse 80 /min Comments: Pattern: Regular Respiration Rate 18 /min Comments: Pattern: Unlabored O2 SAT 98 % Comments: Room air BP Systolic 126 mm[Hg] Comments: Patient Position: Sitting; Cuff Location: Left Arm; Cuff Size: Standard BP Diastolic 90 mm[Hg] Comments: Patient Position: Sitting; Cuff Location: Left Arm; Cuff Size: Standard Weight 116 lb Height 55 in Body Mass Index Calculated 26.96 kg/m2 Body Surface Area Calculated 1.39 m2 :29 Temperature 94.8 f Comments: Method: Temporal Pulse 72 /min Comments: Pattern: Regular Respiration Rate 16 /min Comments: Pattern: Unlabored O2 SAT 96 % Comments: Room air BP Systolic 130 mm[Hg] Comments: Patient Position: Sitting; Cuff Location: Left Arm; Cuff Size: Standard BP Diastolic 78 mm[Hg] Comments: Patient Position: Sitting; Cuff Location: Left Arm; Cuff Size: Standard Weight 117.375 lb Height 55 in Body Mass Index Calculated 27.28 kg/m2 Body Surface Area Calculated 1.4 m2 :34 Comments: 3:20 clonadine given, another clondine given at 3:35pm BP Systolic 140 mm[Hg] Comments: Patient Position: Sitting; Cuff Location: Left Arm; Cuff Size: Standard BP Diastolic 102 mm[Hg] Comments: Patient Position: Sitting; Cuff Location: Left Arm; Cuff Size: Standard :59 Temperature 98 f Pulse 64 /min Comments: Pattern: Regular Respiration Rate 16 /min Comments: Pattern: Unlabored O2 SAT 97 % Comments: Room air BP Systolic 140 mm[Hg] Comments: Patient Position: Sitting; Cuff Location: Left Arm; Cuff Size: Standard BP Diastolic 90 mm[Hg] Comments: Patient Position: Sitting; Cuff Location: Left Arm; Cuff Size: Standard Weight 117.375 lb Height 55 in Body Mass Index Calculated 27.28 kg/m2 Body Surface Area Calculated 1.4 m2 :32 Temperature 98.2 f Comments: Method: Oral Pulse 58 /min Comments: Pattern: Regular Respiration Rate 16 /min O2 SAT 98 % Comments: Room air BP Systolic 162 mm[Hg] Comments: Patient Position: Sitting; Cuff Location: Left Arm; Cuff Size: Standard BP Diastolic 100 mm[Hg] Comments: Patient Position: Sitting; Cuff Location: Left Arm; Cuff Size: Standard Weight 111 lb Height 55 in Body Mass Index Calculated 25.8 kg/m2 Body Surface Area Calculated 1.36 m2 :22 Temperature 98.8 f Comments: Method: Oral Pulse 78 /min Comments: Pattern: Regular Respiration Rate 16 /min O2 SAT 99 % Comments: Room air BP Systolic 144 mm[Hg] Comments: Patient Position: Sitting; Cuff Location: Left Arm; Cuff Size: Standard BP Diastolic 88 mm[Hg] Comments: Patient Position: Sitting; Cuff Location: Left Arm; Cuff Size: Standard Weight 111 lb Height 55 in Body Mass Index Calculated 25.8 kg/m2 Body Surface Area Calculated 1.36 m2 :29 Temperature 98 f Comments: Method: Oral Pulse 62 /min Comments: Pattern: Regular Respiration Rate 16 /min O2 SAT 98 % Comments: Room air BP Systolic 140 mm[Hg] Comments: Patient Position: Sitting; Cuff Location: Left Arm; Cuff Size: Standard BP Diastolic 80 mm[Hg] Comments: Patient Position: Sitting; Cuff Location: Left Arm; Cuff Size: Standard Weight 111 lb Height 55 in Body Mass Index Calculated 25.8 kg/m2 Body Surface Area Calculated 1.36 m2 :42 Temperature 97 f Comments: Method: Temporal Pulse 79 /min Comments: Pattern: Regular Respiration Rate 16 /min Comments: Pattern: Unlabored O2 SAT 96 % Comments: Room air BP Systolic 140 mm[Hg] Comments: Patient Position: Sitting; Cuff Location: Left Arm; Cuff Size: Standard BP Diastolic 72 mm[Hg] Comments: Patient Position: Sitting; Cuff Location: Left Arm; Cuff Size: Standard Weight 111 lb Height 55 in Body Mass Index Calculated 25.8 kg/m2 Body Surface Area Calculated 1.36 m2 :36 Temperature 97.6 f Comments: Method: Oral Pulse 74 /min Comments: Pattern: Regular Respiration Rate 18 /min Comments: Pattern: Unlabored BP Systolic 116 mm[Hg] Comments: Patient Position: Sitting; Cuff Location: Left Arm; Cuff Size: Standard BP Diastolic 74 mm[Hg] Comments: Patient Position: Sitting; Cuff Location: Left Arm; Cuff Size: Standard Weight 108 lb Height 55 in Body Mass Index Calculated 25.1 kg/m2 Body Surface Area Calculated 1.35 m2 :39 Temperature 97.8 f Comments: Method: Oral Pulse 78 /min Comments: Pattern: Regular Respiration Rate 18 /min Comments: Pattern: Unlabored BP Systolic 130 mm[Hg] Comments: Patient Position: Sitting; Cuff Location: Left Arm; Cuff Size: Standard BP Diastolic 78 mm[Hg] Comments: Patient Position: Sitting; Cuff Location: Left Arm; Cuff Size: Standard Weight 111 lb Height 55 in Body Mass Index Calculated 25.8 kg/m2 Body Surface Area Calculated 1.36 m2 :26 BP Systolic 176 mm[Hg] Comments: Patient Position: Sitting; Cuff Location: Left Arm; Cuff Size: Standard BP Diastolic 100 mm[Hg] Comments: Patient Position: Sitting; Cuff Location: Left Arm; Cuff Size: Standard :16 Temperature 98 f Comments: Method: Oral Pulse 64 /min Comments: Pattern: Regular Respiration Rate 18 /min Comments: Pattern: Unlabored BP Systolic 198 mm[Hg] Comments: Patient Position: Sitting; Cuff Location: Left Arm; Cuff Size: Standard BP Diastolic 110 mm[Hg] Comments: Patient Position: Sitting; Cuff Location: Left Arm; Cuff Size: Standard Weight 114 lb Height 55 in Body Mass Index Calculated 26.5 kg/m2 Body Surface Area Calculated 1.38 m2 :44 Temperature 97 f Comments: Method: Temporal Pulse 80 /min Comments: Pattern: Regular Respiration Rate 16 /min Comments: Pattern: Unlabored O2 SAT 98 % Comments: Room air BP Systolic 130 mm[Hg] Comments: Patient Position: Sitting; Cuff Location: Left Arm; Cuff Size: Standard BP Diastolic 76 mm[Hg] Comments: Patient Position: Sitting; Cuff Location: Left Arm; Cuff Size: Standard Weight 115.9 lb Height 55 in Body Mass Index Calculated 26.94 kg/m2 Body Surface Area Calculated 1.39 m2 :53 Temperature 98 f Comments: Method: Oral Pulse 76 /min Comments: Pattern: Regular Respiration Rate 20 /min Comments: Pattern: Unlabored BP Systolic 134 mm[Hg] Comments: Patient Position: Sitting; Cuff Location: Left Arm; Cuff Size: Standard BP Diastolic 82 mm[Hg] Comments: Patient Position: Sitting; Cuff Location: Left Arm; Cuff Size: Standard Weight 119 lb Height 55 in Body Mass Index Calculated 27.66 kg/m2 Body Surface Area Calculated 1.41 m2 :20 Temperature 97.9 f Comments: Method: Oral Pulse 74 /min Comments: Pattern: Regular Respiration Rate 20 /min Comments: Pattern: Unlabored BP Systolic 164 mm[Hg] Comments: Patient Position: Sitting; Cuff Location: Left Arm; Cuff Size: Standard BP Diastolic 100 mm[Hg] Comments: Patient Position: Sitting; Cuff Location: Left Arm; Cuff Size: Standard Weight 119 lb Height 55 in Body Mass Index Calculated 27.66 kg/m2 Body Surface Area Calculated 1.41 m2 :16 Pulse 80 /min Comments: Pattern: Regular Respiration Rate 20 /min Comments: Pattern: Unlabored BP Systolic 142 mm[Hg] Comments: Patient Position: Sitting; Cuff Location: Left Arm; Cuff Size: Standard BP Diastolic 84 mm[Hg] Comments: Patient Position: Sitting; Cuff Location: Left Arm; Cuff Size: Standard Weight 121.1875 lb Height 55 in Body Mass Index Calculated 28.17 kg/m2 Body Surface Area Calculated 1.42 m2 :33 Temperature 98.3 f Comments: Method: Oral Pulse 80 /min Comments: Pattern: Regular Respiration Rate 16 /min Comments: Pattern: Unlabored BP Systolic 132 mm[Hg] Comments: Patient Position: Supine; Cuff Location: Left Arm; Cuff Size: Standard BP Diastolic 78 mm[Hg] Comments: Patient Position: Supine; Cuff Location: Left Arm; Cuff Size: Standard Weight 115.0625 lb Height 55 in Body Mass Index Calculated 26.74 kg/m2 Body Surface Area Calculated 1.39 m2 :50 Pulse 60 /min Comments: Pattern: Regular Respiration Rate 16 /min Comments: Pattern: Unlabored BP Systolic 110 mm[Hg] Comments: Patient Position: Sitting; Cuff Location: Left Arm; Cuff Size: Standard BP Diastolic 80 mm[Hg] Comments: Patient Position: Sitting; Cuff Location: Left Arm; Cuff Size: Standard Weight 114.5 lb Height 55 in Body Mass Index Calculated 26.61 kg/m2 Body Surface Area Calculated 1.38 m2 :53 Pulse 72 /min Comments: Pattern: Regular Respiration Rate 16 /min Comments: Pattern: Unlabored BP Systolic 124 mm[Hg] Comments: Patient Position: Sitting; Cuff Location: Left Arm; Cuff Size: Standard BP Diastolic 82 mm[Hg] Comments: Patient Position: Sitting; Cuff Location: Left Arm; Cuff Size: Standard Weight 118.5625 lb Height 55 in Body Mass Index Calculated 27.56 kg/m2 Body Surface Area Calculated 1.4 m2 :45 Pulse 60 /min Comments: Pattern: Regular Respiration Rate 16 /min Comments: Pattern: Unlabored BP Systolic 112 mm[Hg] Comments: Patient Position: Sitting; Cuff Location: Left Arm; Cuff Size: Large BP Diastolic 64 mm[Hg] Comments: Patient Position: Sitting; Cuff Location: Left Arm; Cuff Size: Large Weight 119.125 lb Height 55 in Body Mass Index Calculated 27.69 kg/m2 Body Surface Area Calculated 1.41 m2 :18 Pulse 64 /min Comments: Pattern: Regular Respiration Rate 20 /min Comments: Pattern: Unlabored BP Systolic 154 mm[Hg] Comments: Patient Position: Sitting; Cuff Location: Left Arm; Cuff Size: Large BP Diastolic 98 mm[Hg] Comments: Patient Position: Sitting; Cuff Location: Left Arm; Cuff Size: Large Weight 119.125 lb Height 55 in Body Mass Index Calculated 27.69 kg/m2 Body Surface Area Calculated 1.41 m2 Head Circumference 0.00 cm :14 Pulse 72 /min Comments: Pattern: Regular Respiration Rate 16 /min Comments: Pattern: Unlabored BP Systolic 136 mm[Hg] Comments: Patient Position: Sitting; Cuff Location: Left Arm; Cuff Size: Standard BP Diastolic 74 mm[Hg] Comments: Patient Position: Sitting; Cuff Location: Left Arm; Cuff Size: Standard Weight 117 lb Height 55 in Body Mass Index Calculated 27.19 kg/m2 Body Surface Area Calculated 1.4 m2 Head Circumference 0.00 cm :46 Temperature 98.4 f Comments: Method: Oral Pulse 80 /min Comments: Pattern: Regular Respiration Rate 16 /min Comments: Pattern: Unlabored BP Systolic 126 mm[Hg] Comments: Patient Position: Sitting; Cuff Location: Right Arm; Cuff Size: Standard BP Diastolic 82 mm[Hg] Comments: Patient Position: Sitting; Cuff Location: Right Arm; Cuff Size: Standard Weight 119.3125 lb Height 0 in Head Circumference 0.00 cm :29 Temperature 98.7 f Comments: Method: Undefined Pulse 92 /min Comments: Pattern: Regular Respiration Rate 16 /min Comments: Pattern: Undefined BP Systolic 158 mm[Hg] Comments: Patient Position: Sitting; Cuff Location: Right Arm; Cuff Size: Standard BP Diastolic 104 mm[Hg] Comments: Patient Position: Sitting; Cuff Location: Right Arm; Cuff Size: Standard Weight 0 lb Height 0 in Head Circumference 0.00 cm :53 Pulse 72 /min Comments: Pattern: Regular Respiration Rate 16 /min Comments: Pattern: Unlabored BP Systolic 120 mm[Hg] Comments: Patient Position: Sitting; Cuff Location: Left Arm; Cuff Size: Standard BP Diastolic 78 mm[Hg] Comments: Patient Position: Sitting; Cuff Location: Left Arm; Cuff Size: Standard Weight 119.3125 lb Height 0 in Head Circumference 0.00 cm :22 Temperature 98.2 f Comments: Method: Oral Pulse 92 /min Comments: Pattern: Regular Respiration Rate 18 /min Comments: Pattern: Unlabored BP Systolic 116 mm[Hg] Comments: Patient Position: Sitting; Cuff Location: Left Arm; Cuff Size: Large BP Diastolic 80 mm[Hg] Comments: Patient Position: Sitting; Cuff Location: Left Arm; Cuff Size: Large Weight 0 lb Height 0 in Head Circumference 0.00 cm :08 Temperature 97.6 f Comments: Method: Oral Pulse 72 /min Comments: Pattern: Regular Respiration Rate 18 /min Comments: Pattern: Unlabored BP Systolic 114 mm[Hg] Comments: Patient Position: Sitting; Cuff Location: Left Arm; Cuff Size: Standard BP Diastolic 76 mm[Hg] Comments: Patient Position: Sitting; Cuff Location: Left Arm; Cuff Size: Standard Weight 0 lb Height 0 in Head Circumference 0.00 cm :02 Temperature 98 f Comments: Method: Oral Pulse 72 /min Comments: Pattern: Regular Respiration Rate 16 /min Comments: Pattern: Unlabored BP Systolic 118 mm[Hg] Comments: Patient Position: Sitting; Cuff Location: Left Arm; Cuff Size: Standard BP Diastolic 70 mm[Hg] Comments: Patient Position: Sitting; Cuff Location: Left Arm; Cuff Size: Standard Weight 118 lb Height 0 in Head Circumference 0.00 cm :59 Temperature 98.6 f Comments: Method: Oral Pulse 74 /min Comments: Pattern: Regular Respiration Rate 20 /min Comments: Pattern: Unlabored BP Systolic 118 mm[Hg] Comments: Patient Position: Sitting; Cuff Location: Left Arm; Cuff Size: Standard BP Diastolic 78 mm[Hg] Comments: Patient Position: Sitting; Cuff Location: Left Arm; Cuff Size: Standard Weight 118 lb Height 0 in Head Circumference 0.00 cm :12 Pulse 78 /min Comments: Pattern: Regular Respiration Rate 17 /min Comments: Pattern: Unlabored BP Systolic 120 mm[Hg] Comments: Patient Position: Sitting; Cuff Location: Left Arm; Cuff Size: Standard BP Diastolic 80 mm[Hg] Comments: Patient Position: Sitting; Cuff Location: Left Arm; Cuff Size: Standard Weight 119 lb Height 0 in Head Circumference 0.00 cm :09 Temperature 97.6 f Comments: Method: Oral Pulse 76 /min Comments: Pattern: Regular Respiration Rate 20 /min Comments: Pattern: Unlabored O2 SAT 98 % Comments: Room air BP Systolic 122 mm[Hg] Comments: Patient Position: Sitting; Cuff Location: Left Arm; Cuff Size: Standard BP Diastolic 80 mm[Hg] Comments: Patient Position: Sitting; Cuff Location: Left Arm; Cuff Size: Standard Weight 119 lb Height 0 in Head Circumference 0.00 cm :55 Temperature 98 f Comments: Method: Oral Pulse 68 /min Comments: Pattern: Regular Respiration Rate 18 /min Comments: Pattern: Unlabored BP Systolic 118 mm[Hg] Comments: Patient Position: Sitting; Cuff Location: Left Arm; Cuff Size: Standard BP Diastolic 80 mm[Hg] Comments: Patient Position: Sitting; Cuff Location: Left Arm; Cuff Size: Standard Weight 115.0313 lb Height 0 in Head Circumference 0.00 cm Results Date Description Value Details :30 CBC W/Diff, Automated Comments: FERRITIN, IRON [facility] [address]wifu[address] [facility] [place], [place], [id number] Absolute Lymph 1.25 {X10_3/ul} (Normal) Range: 0.83-4.51 Absolute Neut 7.2 {X10_3/uL} (Normal) Range: 2.0-7.7 IM GRAN % 0.100 % (Normal) Range: 0.0-0.9 Comments: IG% - Immature Granulocytes (promyelocytes, myelocytes andmetamyelocytes) > 1% indicates that a LEFT SHIFT is Present. BASO% 0.2 % (Normal) Range: 0-1 EO% 2.6 % (Normal) Range: 0-5 MONO% 7.0 % (Normal) Range: 0-10 LY% 13.3 % (Abnormal) Range: 19-41 NEUT% 76.8 % (Abnormal) Range: 47-70 MPV 11.4 fL (Normal) Range: 6.2-12.0 PLT 240 K/mm3 (Normal) Range: 150-450 RDW SD 41.2 fL (Normal) Range: 35.1-43.9 RDW CV 13.1 % (Normal) Range: 11.6-14.6 MCHC 32.1 {g/gl} (Normal) Range: 32-36 MCH 27.8 pg (Normal) Range: 27.0-32.0 MCV 86.5 fL (Normal) Range: 81-99 HCT 43.6 % (Normal) Range: 37-47 HGB 14.0 g/dL (Normal) Range: 12.0-15.0 RBC 5.04 {M/mm3} (Normal) Range: 4.2-5.4 WBC 9.4 K/mm3 (Normal) Range: 4.4-11.0 25-Nkg-60238:30 Comprehensive Metabolic Profil Comments: FERRITIN, IRON FOR EXTRA [facility] [address] [place], [address] GAP 8 (Normal) Range: 5-15 CO2 26.0 mmol/L (Normal) Range: 21.0-32.0 CL 105 mmol/L (Normal) Range: 98-107 K 3.5 mmol/L (Normal) Range: 3.5-5.1 NA 139 mmol/L (Normal) Range: 136-145 T BILI 0.30 mg/dL (Normal) Range: 0.20-1.00 ALT 21 U/L (Normal) Range: 13-56 ALK P 84 U/L (Normal) Range: 45-117 AST 18 U/L (Normal) Range: 15-37 CA 8.3 mg/dL (Abnormal) Range: 8.5-10.1 A/G 0.8 {RATIO} (Abnormal) Range: 0.9-2.4 GLOB 4.2 g/dL (Normal) Range: 2.2-4.2 ALB 3.5 g/dL (Normal) Range: 3.2-5.0 T PROT 7.7 g/dL (Normal) Range: 6.4-8.2 BUN/CRE 18.5 {RATIO} (Normal) Range: 10-20 EST GFR - AA 105 mL/min (Normal) Comments: GFR Calc EST GFR 87 mL/min (Normal) Comments: Non- GFR Calc CREAT,SERUM 0.76 mg/dL (Normal) Range: 0.55-1.02 Comments: The validity of the calculated GFR AND GFRAA in patients over70 years has not been determined. Clinical correlation isessential. BUN 14 mg/dL (Normal) Range: 7-18 GLU 84 mg/dL (Normal) Range: 74-106 Comments: Please note revised GLUCOSE reference range ectamctvq94/02/2018. 74-Zly-21353:30 Hemoglobin A1c Comments: FERRITIN, IRON FOR EXTRA ORDERSWMercy [facility] [address] [place], [place], [id number] HGB A1C 5.1 % (Normal) Range: 4.2-6.3 17-Yim-17589:00 Ferritin Comments: [facility] [address] [place], [place], [id number] FERRITIN 20 ng/mL (Normal) Range: 8-252 73-Trq-74176:00 Iron Comments: [facility] [address] [place], [place], [id number] IRON 28 ug/dL (Abnormal) Range: 50-170 32-Efc-75950:38 CBC W/Diff, Automated Comments: [facility] [address] [place], [place], [address] Absolute Lymph 1.55 {X10_3/ul} (Normal) Range: 0.83-4.51 Absolute Neut 6.2 {X10_3/uL} (Normal) Range: 2.0-7.7 IM GRAN % 0.300 % (Normal) Range: 0.0-0.9 Comments: IG% - Immature Granulocytes (promyelocytes, myelocytes andmetamyelocytes) > 1% indicates that a LEFT SHIFT is Present. BASO% 0.2 % (Normal) Range: 0-1 EO% 2.9 % (Normal) Range: 0-5 MONO% 7.4 % (Normal) Range: 0-10 LY% 17.9 % (Abnormal) Range: 19-41 NEUT% 71.3 % (Abnormal) Range: 47-70 MPV 11.1 fL (Normal) Range: 6.2-12.0 PLT 296 K/mm3 (Normal) Range: 150-450 RDW SD 42.4 fL (Normal) Range: 35.1-43.9 RDW CV 13.5 % (Normal) Range: 11.6-14.6 MCHC 32.9 {g/gl} (Normal) Range: 32-36 MCH 28.8 pg (Normal) Range: 27.0-32.0 MCV 87.7 fL (Normal) Range: 81-99 HCT 42.0 % (Normal) Range: 37-47 HGB 13.8 g/dL (Normal) Range: 12.0-15.0 RBC 4.79 {M/mm3} (Normal) Range: 4.2-5.4 WBC 8.6 K/mm3 (Normal) Range: 4.4-11.0 :38 Vitamin D,25 Hydroxy Comments: [address], [address] Vitamin D 25-OH 40.4 ng/mL (Normal) Range: 29.95-100.01 Comments: Vitamin D 25(OH) Status Range Deficiency <20 ng/mL (50nmol/L) Insuffciency 20 - 30 ng/mL (50 - 75 nmol/L) Sufficiency 30 - 100 ng/mL (75 - 250 nmol/L) Toxicity >100 ng/mL (>250 nmol/L) 36-Pku-94428:30 Ferritin Comments: [address], [id number] FERRITIN 12 ng/mL (Normal) Range: 8-252 40-Wqh-93495:30 Iron Comments: [address], [address] IRON 40 ug/dL (Abnormal) Range: 50-170 35-Mvb-714525:30 URINE ABRAHAM CULTURE-MIC COL Comments: PERFORMED BY: [facility] RiverGvqtfn1627 [address] [place] [id number] Information: SRC:UR COUNT (78411) Antimicrobial MIHEAD (Normal) Comments: S = Susceptible; I = Intermediate; R = Resistant P = Positive; N = Negative MICS are expressed in micrograms per mL Antibiotic RSLT#1 RSLT#2 RS Susceptibility LT#3 RSLT#4Amoxicillin/Clavulanic Acid RAmpicillin RCefazolin RCefepime SCeftriaxone SCefuroxime SCephalothin ICiprofloxacin RErtapenem SGentamicin RImipenem SLevofloxacin RNitrof urantoin SPiperacillin RTetracycline RTobramycin RTrimethoprim/Sulfa R Result 1 Escherichia coli Comments: Greater than 100,000 colony forming units per mL (Abnormal) Urine Final report Culture,Comprehensive (Abnormal) 88-Tpc-[id number]:23 Urinalysis, Office (90502) UA - LEUKOCYTE ESTERASE Moderate (Normal) UA - NITRITE Positive (Normal) URINE UROBILINGN MCI TIMED Normal mg/dL (Normal) UA - PROTEIN Negative mg/dL (Normal) UA - PH 7 (Normal) UA - BLOOD Negative (Normal) UA - SPECIFIC GRAVITY 1.010 (Normal) UA - KETONES Negative mg/dL (Normal) UA - BILIRUBIN Negative (Normal) UA - GLUCOSE Negative (Normal) 75-Kpg-092667:48 CBC, Platelets & Auto Diff Comments: PATIENT NOT FASTINGPERFORMED BY: CB [facility] Oanqap1748 [facility] [id number]; OV 01/26 (90935) Hematology Comments: Note: (Normal) Comments: Verified by microscopic examination. Immature Grans (Abs) 0.0 {x10E3/uL} (Normal) Range: 0.0-0.1 Immature Granulocytes 0 % (Normal) Baso (Absolute) 0.0 {x10E3/uL} (Normal) Range: 0.0-0.2 Eos (Absolute) 0.1 {x10E3/uL} (Normal) Range: 0.0-0.4 Monocytes(Absolute) 0.8 {x10E3/uL} (Normal) Range: 0.1-0.9 Lymphs (Absolute) 1.6 {x10E3/uL} (Normal) Range: 0.7-3.1 Neutrophils (Absolute) 6.2 {x10E3/uL} (Normal) Range: 1.4-7.0 Basos 0 % (Normal) Eos 1 % (Normal) Monocytes 9 % (Normal) Lymphs 18 % (Normal) Neutrophils 72 % (Normal) Platelets 352 {x10E3/uL} (Normal) Range: 150-379 RDW 24.9 % (Abnormal) Range: 12.3-15.4 MCHC 30.3 g/dL (Abnormal) Range: 31.5-35.7 MCH 23.7 pg (Abnormal) Range: 26.6-33.0 MCV 78 fL (Abnormal) Range: 79-97 Hematocrit 38.6 % (Normal) Range: 34.0-46.6 Hemoglobin 11.7 g/dL (Normal) Range: 11.1-15.9 RBC 4.94 {x10E6/uL} (Normal) Range: 3.77-5.28 WBC 8.7 {x10E3/uL} (Normal) Range: 3.4-10.8 30-Bhf-035985:28 URINE ABRAHAM CULTURE-IDENTIFICATN Comments: PATIENT NOT FASTINGPERFORMED BY: [facility] Xckjcn0962 [facility] [id number] Information: SRC:EMMA (72500) Antimicrobial MIHEAD (Normal) Comments: S = Susceptible; I = Intermediate; R = Resistant P = Positive; N = Negative MICS are expressed in micrograms per mL Antibiotic RSLT#1 RSLT#2 RS Susceptibility LT#3 RSLT#4Amoxicillin/Clavulanic Acid SAmpicillin RCefepime SCeftriaxone SCefuroxime SCephalothin ICiprofloxacin RErtapenem SGentamicin RImipenem SLevofloxacin RNitrofurantoin SPipera cillin RTetracycline RTobramycin ITrimethoprim/Sulfa R Result 1 Escherichia coli Comments: Greater than 100,000 colony forming units per mL (Abnormal) Urine Final report Culture,Comprehensive (Abnormal) 66-Bhn-[id number]:52 Urinalysis, Office (47839) UA - BLOOD Hemolyzed Trace (Normal) UA - LEUKOCYTE ESTERASE Moderate (Normal) UA - NITRITE Positive (Normal) URINE UROBILINGN MIC TIMED Normal mg/dL (Normal) UA - PROTEIN Trace mg/dL (Normal) UA - PH 7 (Normal) UA - SPECIFIC GRAVITY 1.015 (Normal) UA - KETONES Negative mg/dL (Normal) UA - BILIRUBIN Negative (Normal) UA - GLUCOSE Negative (Normal) :22 Lipid Panel (82243) Comments: PATIENT WAS FASTINGPERFORMED BY: Contact At Once![facility] RiverHamxuu1700 [facility] [id number] LDL/HDL Ratio 1.5 (Normal) Range: 0.0-3.2 Comments: LDL/HDL Ratio Men Women 1/2 Avg.Risk 1.0 1.5 Av g.Risk 3.6 3.2 2X Avg.Risk 6.2 5.0 3X Avg.Risk 8.0 6.1 LDL Cholesterol Calc 93 (Normal) Range: 0-99 VLDL Cholesterol Danny 18 (Normal) Range: 5-40 HDL Cholesterol 61 mg/dL (Normal) Triglycerides 90 mg/dL (Normal) Range: 0-149 Cholesterol, Total 172 mg/dL (Normal) Range: 100-199 85-Epp-32241:22 FERRITIN (80586) Comments: PATIENT WAS FASTINGPERFORMED BY: Contact At Once![facility] RiverMhxmuu9587 [facility] [id number] Ferritin, Serum 4 ng/mL (Abnormal) Range: 15-150 :22 IRON (14248) Comments: PATIENT WAS FASTINGPERFORMED BY: Contact At Once![facility] RiverHjgbjx0812 [facility] [id number] Iron, Serum 24 ug/dL (Abnormal) Range: 27-159 42-Foy-50784:22 CBC & PLATELETS (AUTO) (73421) Comments: PATIENT WAS FASTINGPERFORMED BY: Contact At Once![facility] RiverNgrtbi7979 [facility] [id number] Platelets 401 {x10E3/uL} (Abnormal) Range: 150-379 RDW 16.6 % (Abnormal) Range: 12.3-15.4 MCHC 28.5 g/dL (Abnormal) Range: 31.5-35.7 MCH 20.2 pg (Abnormal) Range: 26.6-33.0 MCV 71 fL (Abnormal) Range: 79-97 Hematocrit 34.7 % (Normal) Range: 34.0-46.6 Hemoglobin 9.9 g/dL (Abnormal) Range: 11.1-15.9 RBC 4.89 {x10E6/uL} (Normal) Range: 3.77-5.28 WBC 6.9 {x10E3/uL} (Normal) Range: 3.4-10.8 :22 CALCIFEDIOL (14695) Comments: PATIENT WAS FASTINGPERFORMED BY: [facility]6370 [facility] [id number] Vitamin D, 25-Hydroxy 19.9 ng/mL (Abnormal) Range: 30.0-100.0 Comments: Vitamin D deficiency has been defined by the [place] of[place] and an Endocrine Society practice guideline as alevel of serum 25-OH vitamin D less than 20 ng/mL (1,2).The Endocrine Society went on to further define vitamin Dinsufficiency as a level between 21 and 29 ng/mL (2).1. IOM ([place] of [employer]). 2010. Dietary reference intakes for calcium and D. [place]: The National Academies Press.2. Andrea MF, Bhakti RIZVI, Olamide GARCIA, et al. Evaluation, treatment, and prevention of vitamin D deficiency: an Endocrine Society clinical practice guideline. JCEM. 2010; 96(7):1911-30. :22 TSH (36695) Comments: PATIENT WAS FASTINGPERFORMED BY: [facility]6370 [facility] [id number] TSH 0.896 {uIU/mL} (Normal) Range: 0.450-4.500 65-Gqg-26221:22 Metabolic Panel, Comprehensive Comments: PATIENT WAS FASTINGPERFORMED BY: [facility]6370 [facility] [id number] (45417) ALT (SGPT) 15 [iU]/L (Normal) Range: 0-32 AST (SGOT) 18 [iU]/L (Normal) Range: 0-40 Alkaline Phosphatase, S 73 [iU]/L (Normal) Range: 39-117 Bilirubin, Total 0.3 mg/dL (Normal) Range: 0.0-1.2 A/G Ratio 1.4 (Normal) Range: 1.2-2.2 Globulin, Total 3.0 (Normal) Range: 1.5-4.5 Albumin, Serum 4.2 g/dL (Normal) Range: 3.5-5.5 Protein, Total, Serum 7.2 g/dL (Normal) Range: 6.0-8.5 Calcium, Serum 9.0 mg/dL (Normal) Range: 8.7-10.2 Carbon Dioxide, Total 24 mmol/L (Normal) Range: 18-29 Chloride, Serum 101 mmol/L (Normal) Range: 96-106 Potassium, Serum 4.1 mmol/L (Normal) Range: 3.5-5.2 Sodium, Serum 141 mmol/L (Normal) Range: 134-144 BUN/Creatinine Ratio 15 (Normal) Range: 9-23 eGFR If Africn Am 102 (Normal) eGFR If NonAfricn Am 89 (Normal) Creatinine, Serum 0.80 mg/dL (Normal) Range: 0.57-1.00 BUN 12 mg/dL (Normal) Range: 6-24 Glucose, Serum 79 mg/dL (Normal) Range: 65-99 67-Stj-784799:30 IGP, Aptima HPV, rfx Comments: No. of containers..01 ThinPrep VialPERFORMED BY: =G Contact At Once![address] [id number] BY: WB [facility] [id number] 16/18,45 HPV Aptima Negative (Normal) Comments: This test detects fourteen high-risk HPV types (16/18/31/33/35/39/45/51/52/56/58/59/66/68) without differentiation. Note: PAPSMR (Normal) Comments: The Pap smear is a screening test designed to aid in the detection ofpremalignant and malignant conditions of the uterine cervix. It is not adiagnostic procedure and should not be used as the sole mean s of detectingcervical cancer. Both false-positive and false-negative reports do occur. .This liquid based ThinPrep(R) pap test w as screened with theuse of an image guided system. See Note . (Normal) DIAGNOSIS: SPRCS (Normal) Comments: NEGATIVE FOR INTRAEPITHELIAL LESION AND MALIGNANCY.Satisfactory for evaluation. No endocervical component is identified.Z01.411Shgordon Hawkins Managed Care Director (ASCP) 35-Fjw-007442:35 URINE ABRAHAM CULTURE-IDENTIFICATN Comments: PERFORMED BY: [place] [id number] [facility] [id number] (14004) Antimicrobial MIHEAD (Normal) Comments: S = Susceptible; I = Intermediate; R = Resistant P = Positive; N = Negative MICS are expressed in micrograms per mL Antibiotic RSLT#1 RSLT#2 RS Susceptibility LT#3 RSLT#4Amoxicillin/Clavulanic Acid RCefazolin RCefepime SCeftriaxone SCefuroxime RCephalothin RCiprofloxacin IErtapenem SGentamicin RImipenem SLevofloxacin INitrofurantoin SPipera cillin RTetracycline RTobramycin ITrimethoprim/Sulfa R Result 1 Citrobacter freundii Comments: 10,000-25,000 colony forming units per mL (Abnormal) Urine Final report Culture,Comprehensive (Abnormal) [id number]:35 MICROALBUMIN: CREATININE Comments: PERFORMED BY: [facility]6370 [facility] [id number] Information: SRC:UC RATIO (64601) AND (60440) Alb/Creat Ratio 68.6 (Abnormal) Range: 0.0-30.0 Albumin, Urine 122.3 ug/mL (Normal) Creatinine, Urine 178.3 mg/dL (Normal) 84-Jia-440189:30 Thin prep Pap (12439) Comments: No. of containers..01 ThinPrep VialPERFORMED BY: =G [facility] [id number] BY: WB [facility] [id number] (no STD testing) linical Information: [id number] Age Gdln ACOG Testing 30-65 (Normal) 00-Ils-243144:42 Urinalysis, Office (29846) UA - LEUKOCYTE ESTERASE Small (Normal) UA - NITRITE Negative (Normal) URINE UROBILINGN MIC TIMED Normal mg/dL (Normal) UA - PROTEIN 30 mg/dL (Normal) UA - PH 6 (Abnormal) UA - BLOOD Negative (Normal) UA - SPECIFIC GRAVITY 1.020 (Normal) UA - KETONES Small mg/dL (Normal) UA - BILIRUBIN Negative (Normal) UA - GLUCOSE Negative (Normal) 90-Jnb-898368:03 URINE ABRAHAM CULTURE-MIC COL Comments: PATIENT NOT FASTINGPERFORMED BY: [facility]6370 [facility] [id number] Information: SRC:UC COUNT (42768) Antimicrobial MIHEAD (Normal) Comments: S = Susceptible; I = Intermediate; R = Resistant P = Positive; N = Negative MICS are expressed in micrograms per mL Antibiotic RSLT#1 RSLT#2 RS Susceptibility LT#3 RSLT#4Ciprofloxacin RLevofloxacin RNitrofurantoin SPenicillin STetracycline RVancomycin S Result 1 Enterococcus faecalis Comments: Greater than 100,000 colony forming units per mLNote: this isolate is vancomycin-susceptible.This information is provided for epidemiologic purposes only:vancomycin is not among the antibiotics recommen (Abnormal) ded for therapyof urinary tract infections caused by Enterococcus.For Enterococcus species, aminoglycosides (except for high-levelresistance screening), cephalosporins, clindamycin, andtrimethoprim-sulf amethoxazole are not effective clinically.(CLSI, L704-[id number], 2016) Urine Culture,Comprehensive Final report (Abnormal) 56-Pge-442452:02 Urinalysis, Office (91356) UA - LEUKOCYTE ESTERASE Moderate (Normal) UA - NITRITE Negative (Normal) URINE UROBILINGN MIC TIMED Normal mg/dL (Normal) UA - PROTEIN Trace mg/dL (Normal) UA - PH 7.5 (Normal) UA - BLOOD Negative (Normal) UA - SPECIFIC GRAVITY 1.015 (Normal) UA - KETONES Negative mg/dL (Normal) UA - BILIRUBIN Negative (Normal) UA - GLUCOSE Negative (Normal) 08-Maa-185029:40 URINE ABRAHAM CULTURE-MIC COL Comments: PATIENT NOT FASTINGPERFORMED BY: [facility]6370 [facility] [id number] Information: SRC:UC COUNT (78262) Antimicrobial MIHEAD (Normal) Comments: S = Susceptible; I = Intermediate; R = Resistant P = Positive; N = Negative MICS are expressed in micrograms per mL Antibiotic RSLT#1 RSLT#2 RS Susceptibility LT#3 RSLT#4Amoxicillin/Clavulanic Acid SAmpicillin SCefepime SCeftriaxone SCefuroxime SCephalothin SCiprofloxacin SErtapenem SGentamicin SImipenem SLevofloxacin SNitrofurantoin SPipera cillin STetracycline STobramycin STrimethoprim/Sulfa S Result 1 Escherichia coli Comments: Greater than 100,000 colony forming units per mL (Abnormal) Urine Final report Culture,Comprehensive (Abnormal) [id number]:35 Urinalysis, Office (11045) UA - LEUKOCYTE ESTERASE Large (Normal) UA - NITRITE Positive (Normal) URINE UROBILINGN MIC TIMED 2 mg/dL (Normal) UA - PROTEIN 100 mg/dL (Normal) UA - PH 7 (Normal) UA - BLOOD Hemolyzed Moderate (Normal) UA - SPECIFIC GRAVITY 1.020 (Normal) UA - KETONES Negative mg/dL (Normal) UA - BILIRUBIN Negative (Normal) UA - GLUCOSE Negative (Normal) 2-Rsf-248193:52 Basic Metabolic Profile (BMP) Comments: [facility] [address] [place], [address] ; another doc GAP 6 (Normal) Range: 5-15 CO2 31.0 mmol/L (Normal) Range: 21.0-32.0 CL 104 mmol/L (Normal) Range: 98-107 K 3.4 mmol/L (Abnormal) Range: 3.5-5.1 NA 141 mmol/L (Normal) Range: 136-145 CA 8.4 mg/dL (Abnormal) Range: 8.5-10.1 BUN/CRE 14.0 {RATIO} (Normal) Range: 10-20 EST GFR - AA 92 mL/min (Normal) Comments: GFR Calc EST GFR 76 mL/min (Normal) Comments: Non- GFR Calc CREAT,SERUM 0.86 mg/dL (Normal) Range: 0.55-1.02 Comments: The validity of the calculated GFR AND GFRAA in patients over70 years has not been determined. Clinical correlation isessential. BUN 12 mg/dL (Normal) Range: 7-18 GLU 91 mg/dL (Normal) Range: 70-110 98-Gni-961133:18 Urinalysis, Office (21630) UA - LEUKOCYTE ESTERASE Negative (Normal) UA - NITRITE Negative (Normal) URINE UROBILINGN MIC TIMED Normal mg/dL (Normal) UA - PROTEIN Negative mg/dL (Normal) UA - PH 6.5 (Normal) UA - BLOOD Negative (Normal) UA - SPECIFIC GRAVITY 1.015 (Normal) UA - KETONES Negative mg/dL (Normal) UA - BILIRUBIN Negative (Normal) UA - GLUCOSE Negative (Normal) 44-Yku-716501:28 Urinalysis, Office (21978) UA - LEUKOCYTE ESTERASE Trace (Normal) UA - NITRITE Positive (Normal) URINE UROBILINGN MIC TIMED Normal mg/dL (Normal) UA - PROTEIN 30 mg/dL (Normal) UA - PH 7 (Normal) UA - BLOOD Negative (Normal) UA - SPECIFIC GRAVITY 1.025 (Normal) UA - KETONES Negative mg/dL (Normal) UA - BILIRUBIN Negative (Normal) UA - GLUCOSE Negative (Normal) 89-[id number]:03 URINE ABRAHAM CULTURE-IDENTIFICATN Comments: PATIENT NOT FASTINGPERFORMED BY: [facility] [id number] Information: SRC: ([id number]) Antimicrobial MIHEAD (Normal) Comments: S = Susceptible; I = Intermediate; R = Resistant P = Positive; N = Negative MICS are expressed in micrograms per mL Antibiotic RSLT#1 RSLT#2 RS Susceptibility LT#3 RSLT#4Amoxicillin/Clavulanic Acid SAmpicillin RCefepime SCeftriaxone SCefuroxime SCephalothin ICiprofloxacin SErtapenem SGentamicin SImipenem SLevofloxacin SNitrofurantoin SPipera cillin RTetracycline STobramycin STrimethoprim/Sulfa R Result 1 Escherichia coli Comments: Greater than 100,000 colony forming units per mL (Abnormal) Urine Final report Culture,Comprehensive (Abnormal) [id number] MAGNESIUM (91127) Comments: PATIENT NOT FASTINGPERFORMED BY: Contact At Once! Tvwvsi6770 [facility] [id number] BY: BRANDEN [employer] 47 [address] [id number] Magnesium, Serum 2.3 mg/dL (Normal) Range: 1.6-2.3 :37 FERRITIN (01950) Comments: PATIENT NOT FASTINGPERFORMED BY: Contact At Once![facility] HospitalJnmtao2108 [facility] [id number] BY: [place] [address] [id number] Ferritin, Serum 15 ng/mL (Normal) Range: 15-150 :37 IRON & TOTAL IRON Comments: PATIENT NOT FASTINGPERFORMED BY: Contact At Once![place] 7952270 [facility] [id number] BY: ES [place]le [address] [id number] BINDING CAPACITY (71259) Iron Saturation 18 % (Normal) Range: 15-55 Iron, Serum 57 ug/dL (Normal) Range: 27-159 UIBC 261 ug/dL (Normal) Range: 131-425 Iron Bind.Cap.(TIBC) 318 ug/dL (Normal) Range: 250-450 :37 CALCIFEDIOL (65114) Comments: PATIENT NOT FASTINGPERFORMED BY: Contact At Once![place] 7952270 [facility] [id number] BY: Dreamforge [address] [id number] Vitamin D, 25-Hydroxy 22.4 ng/mL (Abnormal) Range: 30.0-100.0 Comments: Vitamin D deficiency has been defined by the [place] of[place] and an Endocrine Society practice guideline as alevel of serum 25-OH vitamin D less than 20 ng/mL (1,2).The Endocrine Society went on to further define vitamin Dinsufficiency as a level between 21 and 29 ng/mL (2).1. IOM ([place] of Medicine). 2010. Dietary reference intakes for calcium and D. [place]: The National Academies Press.2. Andrea LIANG, Bhakti RIZVI, Olamide GARCIA, et al. Evaluation, treatment, and prevention of vitamin D deficiency: an Endocrine Society clinical practice guideline. JCEM. 2010; 96(7):1911-30. [id number]-Jgz-[id number]:37 17-HYDROXYPREGNENOLONE (95926) Comments: PATIENT NOT FASTINGPERFORMED BY: [facility] Vuaspc5491 [facility] [id number] BY: ES Esoterix Cryh[address]zfv[address] [place] [address] [id number] [place] Pregnenolone, Serum, MS 95 ng/dL (Normal) Comments: Reference Range:Adults: 53 - 357 31-Flt-629953:37 FSH AND LH (91345) Comments: PATIENT NOT FASTINGPERFORMED BY: [facility] Etlino[address] [id number] BY: ES Es[employer]ix C[address]vleovcgfw[address] [place] [address] [id number] FSH 24.6 m[iU]/mL (Normal) Comments: Follicular phase 3.5 - 12.5 Ovulation phase 4.7 - 21.5 Luteal phase 1.7 - 7.7 Postmenopausal 25.8 - 134.8 LH 20.5 m[iU]/mL (Normal) Comments: Follicular phase 2.4 - 12.6 Ovulation phase 14.0 - 95.6 Luteal phase 1.0 - 11.4 Postmenopausal 7.7 - 58.5 87-Qtl-917226:37 PROLACTIN (76367) Comments: PATIENT NOT FASTINGPERFORMED BY: Contact At Once![place] 7952270 [facility] [id number] BY: ES [employer] Xp[address]kxkyquxiy[address] [place] [address] [id number] Prolactin 9.6 ng/mL (Normal) Range: 4.8-23.3 06-Qtg-418654:37 TSH (THYROID STIMULATING Comments: PATIENT NOT FASTINGPERFORMED BY: LabLat49 Nxqafm9757 [facility] [id number] BY: ES Esoterix Vgijxdbncbopu5746 [facility] [id number] HORMONE) (78717) TSH 0.754 {uIU/mL} (Normal) Range: 0.450-4.500 65-Ohp-129266:37 METABOLIC PANEL, Comments: PATIENT NOT FASTINGPERFORMED BY: Lab58 Johnson Streetin [place] [id number] BY: BRANDEN Taylor Pynhymbefamdx[address] [place] [address] [id number] COMPREHENSIVE (98207) ALT (SGPT) 14 [iU]/L (Normal) Range: 0-32 AST (SGOT) 17 [iU]/L (Normal) Range: 0-40 Alkaline Phosphatase, S 71 [iU]/L (Normal) Range: 39-117 Bilirubin, Total 0.4 mg/dL (Normal) Range: 0.0-1.2 A/G Ratio 1.6 (Normal) Range: 1.1-2.5 Globulin, Total 2.7 g/dL (Normal) Range: 1.5-4.5 Albumin, Serum 4.3 g/dL (Normal) Range: 3.5-5.5 Protein, Total, Serum 7.0 g/dL (Normal) Range: 6.0-8.5 Calcium, Serum 9.2 mg/dL (Normal) Range: 8.7-10.2 Carbon Dioxide, Total 25 mmol/L (Normal) Range: 18-29 Chloride, Serum 101 mmol/L (Normal) Range: 97-106 Comments: Please note reference interval change Potassium, Serum 4.2 mmol/L (Normal) Range: 3.5-5.2 Comments: Please note reference interval change Sodium, Serum 144 mmol/L (Normal) Range: 136-144 Comments: Please note reference interval change BUN/Creatinine Ratio 13 (Normal) Range: 9-23 eGFR If Africn Am 108 mL/min/1.73 (Normal) eGFR If NonAfricn Am 94 mL/min/1.73 (Normal) Creatinine, Serum 0.77 mg/dL (Normal) Range: 0.57-1.00 BUN 10 mg/dL (Normal) Range: 6-24 Glucose, Serum 81 mg/dL (Normal) Range: 65-99 17-Dpk-980760:37 CBC, PLATELETS & AUT DIFF Comments: PATIENT NOT FASTINGPERFORMED BY: KENNETH [facility] Awbimc9492 [facility] [id number] BY: BRANDEN Taylor Irnxfzeztmqfr0484 [facility] [id number] (37026) Immature Grans (Abs) 0.0 {x10E3/uL} (Normal) Range: 0.0-0.1 Immature Granulocytes 0 % (Normal) Baso (Absolute) 0.0 {x10E3/uL} (Normal) Range: 0.0-0.2 Eos (Absolute) 0.1 {x10E3/uL} (Normal) Range: 0.0-0.4 Monocytes(Absolute) 0.5 {x10E3/uL} (Normal) Range: 0.1-0.9 Lymphs (Absolute) 1.5 {x10E3/uL} (Normal) Range: 0.7-3.1 Neutrophils (Absolute) 8.2 {x10E3/uL} (Abnormal) Range: 1.4-7.0 Basos 0 % (Normal) Eos 1 % (Normal) Monocytes 5 % (Normal) Lymphs 15 % (Normal) Neutrophils 79 % (Normal) Platelets 322 {x10E3/uL} (Normal) Range: 150-379 RDW 13.8 % (Normal) Range: 12.3-15.4 MCHC 32.0 g/dL (Normal) Range: 31.5-35.7 MCH 27.4 pg (Normal) Range: 26.6-33.0 MCV 86 fL (Normal) Range: 79-97 Hematocrit 42.5 % (Normal) Range: 34.0-46.6 Hemoglobin 13.6 g/dL (Normal) Range: 11.1-15.9 RBC 4.96 {x10E6/uL} (Normal) Range: 3.77-5.28 WBC 10.3 {x10E3/uL} (Normal) Range: 3.4-10.8 51-Lcg-780778:37 PT (PROTHROMBIN TIME) Comments: PATIENT NOT FASTINGPERFORMED BY: KENNETH [facility]Co[facility] Toms RiverActdxe5664 [facility] [id number] BY: BRANDEN Esotergenevieve H[address]un[address] [place] [address] [id number] (01580) Prothrombin Time 10.4 {sec} (Normal) Range: 9.1-12.0 INR 1.0 (Normal) Range: 0.8-1.2 Comments: Reference interval is for non-anticoagulated patients. . Suggested INR therapeutic range for Vitamin K anta gonist therapy: Standard Dose (moderate intensity therapeutic range): 2.0 - 3.0 Higher intensity therapeutic range 2.5 - 3.5 15-Vgo-143791:57 Urinalysis, Office (50194) UA - LEUKOCYTE ESTERASE Large (Normal) UA - NITRITE Positive (Normal) URINE UROBILINGN MIC TIMED 8 mg/dL (Normal) UA - PROTEIN 300 mg/dL (Normal) UA - PH 8.5 (Normal) Comments: 9.0 UA - BLOOD Hemolyzed Large (Normal) UA - SPECIFIC GRAVITY 1.005 (Normal) UA - KETONES 160 mg/dL (Abnormal) UA - BILIRUBIN Large (Normal) UA - GLUCOSE 250 (Abnormal) :57 Urine Test, Office (72110) Urine Test, Office Negative (Normal) 37-Egc-361256:43 Renal Profile Comments: [facility] [address] [place], [place], [id number] CO2 27.0 mmol/L (Normal) Range: 21.0-32.0 CL 106 mmol/L (Normal) Range: 98-107 K 3.8 mmol/L (Normal) Range: 3.5-5.1 NA 139 mmol/L (Normal) Range: 136-145 PHOS 3.0 mg/dL (Normal) Range: 2.5-4.9 CA 8.4 mg/dL (Abnormal) Range: 8.5-10.1 ALB 3.7 g/dL (Normal) Range: 3.4-5.0 BUN/CRE 11.5 {RATIO} (Normal) Range: 10-20 EST GFR - AA 91 mL/min (Normal) Comments: GFR Calc EST GFR 75 mL/min (Normal) Comments: Non- GFR Calc CREAT,SERUM 0.87 mg/dL (Normal) Range: 0.55-1.20 Comments: The validity of the calculated GFR AND GFRAA in patients over70 years has not been determined. Clinical correlation isessential. BUN 10 mg/dL (Normal) Range: 7-18 GLU 80 mg/dL (Normal) Range: 70-110 92-Cyp-181171:37 Urinalysis, Office (13873) UA - LEUKOCYTE ESTERASE Negative (Normal) UA - NITRITE Positive (Normal) URINE UROBILINGN MIC TIMED Normal mg/dL (Normal) UA - PROTEIN Negative mg/dL (Normal) UA - PH 8 (Abnormal) UA - BLOOD Negative (Normal) UA - SPECIFIC GRAVITY 1.020 (Normal) UA - KETONES Negative mg/dL (Normal) UA - BILIRUBIN Negative (Normal) UA - GLUCOSE Negative (Normal) 02-Hdl-107849:16 URINE ABRAHAM CULTURE-MIC COL Comments: PATIENT NOT FASTINGPERFORMED BY: [facility] Mvebwz4570 [facility] [id number] Information: SRC:UR [id number] COUNT (39811) Antimicrobial MIHEAD (Normal) Comments: S = Susceptible; I = Intermediate; R = Resistant P = Positive; N = Negative MICS are expressed in micrograms per mL Antibiotic RSLT#1 RSLT#2 RS Susceptibility LT#3 RSLT#4Amoxicillin/Clavulanic Acid SAmpicillin RCefepime SCeftriaxone SCefuroxime SCephalothin SCiprofloxacin SErtapenem SGentamicin SImipenem SLevofloxacin SNitrofurantoin RPipera cillin STetracycline STobramycin STrimethoprim/Sulfa S Result 1 Klebsiella Comments: Greater than 100,000 colony forming units per mL pneumoniae (Abnormal) Urine Final report Culture,Comprehensive (Abnormal) :56 Ferritin Comments: Is Patient Taking Vitamins or Folic Acid Supplements? [facility] [address] [place], [address] FERRITIN 6 ng/mL (Abnormal) Range: 8-252 :56 Folates, (Folic Acid) Comments: Is Patient Taking Vitamins or Folic Acid Supplements? [facility] [address] [place], [address] FOLATES 13.10 ng/mL (Normal) Range: 3.1-17.5 :56 Hemoglobin A1c Comments: [facility] [address] [facility] [place], [address] HGB A1C 5.2 % (Normal) Range: 4.2-6.3 :56 Iron Binding Capacity,Total Comments: Is Patient Taking Vitamins or Folic Acid Supplements? [facility] [address] [place], [id number] TIBC 325 ug/dL (Normal) Range: 250-450 :56 Lipid Profile Comments: Is Patient Taking Vitamins or Folic Acid Supplements? [facility] [address] [place], [address] VLDL 28 mg/dL (Normal) Range: 5-40 LDL 81 mg/dL (Normal) Range: 0-130 HDL 58 mg/dL (Normal) Comments: The drugs N-Acetylcysteine and Metamizole may falsely deressthis assay. Reference Range HDL <40 mg/dL Low HDL Cholesterol HDL >or= 60 mg/dL High HDL Cholesterol TRIG 138 mg/dL (Normal) Comments: The drugs N-Acetylcysteine and Metamizole may falsely deressthis assay.Serum Triglycerides Reference Interval Normal <150 mg/dL Borderline high 150 - 199 mg/dL High 200 - 499 mg/dL Very High > or = 500 mg/dL CHOL 167 mg/dL (Normal) Comments: <200 mg/dL Desirable 200-240 mg/dL Borderline >240 mg/dL High Risk :56 Microalb:Creat Ratio,Random UR Comments: [facility] [address] [place], [address] MALB:CREAT 79.1 {mg/g_CRE} (Abnormal) MICROALBUMIN,UR 48.0 mg/L (Normal) UR CREAT 60.70 mg/dL (Normal) :56 Thyroid Stim Hormone (TSH) Comments: Is Patient Taking Vitamins or Folic Acid Supplements? [facility] [address] [place], [address] TSH 1.28 {uIU/mL} (Normal) Range: 0.358-3.74 :56 Vitamin B12 491 pg/mL (Normal) Comments: [facility] [address] [place], [address] Range: 211-911 :56 Vitamin D 1,25-Dihydroxy Comments: [facility] (refer to report for specific site)refer to report for address and phone number; will review at 06/21 appt VITD 1,25 02908 88.5 pg/mL (Abnormal) Range: 19.9-79.3 Comments: Performed at: - [facility]Co[address] [id number] Director: Jose Villa MD, Phone: [phone] 02-Sab-360024:13 CBC W/Diff, Automated Comments: Order Date: 06/08/16Order Date: [facility] [address] [place], [address] Absolute Lymph 1.70 {X10_3/ul} (Normal) Range: 0.83-4.51 Absolute Neut 5.6 {X10_3/uL} (Normal) Range: 2.0-7.7 IM GRAN % 0.200 % (Normal) Range: 0.0-0.9 Comments: IG% - Immature Granulocytes (promyelocytes, myelocytes andmetamyelocytes) > 1% indicates that a LEFT SHIFT is Present. BASO% 0.2 % (Normal) Range: 0-1 EO% 1.9 % (Normal) Range: 0-5 MONO% 7.1 % (Normal) Range: 0-10 LY% 21.1 % (Normal) Range: 19-41 NEUT% 69.5 % (Normal) Range: 47-70 MPV 9.9 fL (Normal) Range: 6.2-12.0 PLT 309 K/mm3 (Normal) Range: 150-450 RDW SD 42.1 fL (Normal) Range: 35.1-43.9 RDW CV 13.2 % (Normal) Range: 11.6-14.6 MCHC 32.4 {g/gl} (Normal) Range: 32-36 MCH 28.2 pg (Normal) Range: 27.0-32.0 MCV 87.1 fL (Normal) Range: 81-99 HCT 41.7 % (Normal) Range: 37-47 HGB 13.5 g/dL (Normal) Range: 12.0-15.0 RBC 4.79 {M/mm3} (Normal) Range: 4.2-5.4 WBC 8.1 K/mm3 (Normal) Range: 4.4-11.0 :13 Comprehensive Metabolic Profil Comments: Order Date: 06/08/16Order Date: 06/08/16[facility] [address] [place], [place], [address] GAP 4 (Abnormal) Range: 5-15 CO2 30.0 mmol/L (Normal) Range: 21.0-32.0 CL 105 mmol/L (Normal) Range: 98-107 K 4.4 mmol/L (Normal) Range: 3.5-5.1 NA 139 mmol/L (Normal) Range: 136-145 T BILI 0.40 mg/dL (Normal) Range: 0.20-1.00 ALT 25 U/L (Normal) Range: 12-78 ALK P 72 U/L (Normal) Range: 50-136 AST 21 U/L (Normal) Range: 15-37 CA 8.2 mg/dL (Abnormal) Range: 8.5-10.1 A/G 1.0 {RATIO} (Normal) Range: 0.9-2.4 GLOB 3.7 g/dL (Abnormal) Range: 2.3-3.5 ALB 3.7 g/dL (Normal) Range: 3.4-5.0 T PROT 7.4 g/dL (Normal) Range: 6.4-8.2 BUN/CRE 12.6 {RATIO} (Normal) Range: 10-20 EST GFR - AA 114 mL/min (Normal) Comments: GFR Calc EST GFR 94 mL/min (Normal) Comments: Non- GFR Calc CREAT,SERUM 0.72 mg/dL (Normal) Range: 0.55-1.20 Comments: The validity of the calculated GFR AND GFRAA in patients over70 years has not been determined. Clinical correlation isessential. BUN 9 mg/dL (Normal) Range: 7-18 GLU 74 mg/dL (Normal) Range: 70-110 73-Hny-078821:13 D-Dimer Quantitative (DVT/PE) Comments: Order Date: 06/08/16Order Date: 06/08/16[facility] [address] [place], [place], [id number] D-DIMER QUANT 0.30 {FEU/ug/m} (Normal) Range: 0.27-0.49 Comments: NORMAL D-Dimer level (<0.50) indicates no DVT or PE. :54 Ferritin (32098) Comments: PATIENT WAS FASTINGPERFORMED BY: Contact At Once! Cllbxg9393 [facility] [id number] Ferritin, Serum 7 ng/mL (Abnormal) Range: 15-150 :54 T4, FREE (THYROXINE) (15254) Comments: PATIENT WAS FASTINGPERFORMED BY: [employer] Damznc4084 [facility] [id number] T4,Free(Direct) 1.23 ng/dL (Normal) Range: 0.82-1.77 :54 HEPATIC FUNCTION PANEL Comments: PATIENT WAS FASTINGPERFORMED BY: [employer] Ibpwsf5804 [facility] [id number] (67153) ALT (SGPT) 20 [iU]/L (Normal) Range: 0-32 AST (SGOT) 22 [iU]/L (Normal) Range: 0-40 Alkaline Phosphatase, S 73 [iU]/L (Normal) Range: 39-117 Bilirubin, Direct 0.07 mg/dL (Normal) Range: 0.00-0.40 Bilirubin, Total 0.2 mg/dL (Normal) Range: 0.0-1.2 Albumin, Serum 4.2 g/dL (Normal) Range: 3.5-5.5 Protein, Total, Serum 7.0 g/dL (Normal) Range: 6.0-8.5 :54 LIPID PANEL (54511) Comments: PATIENT WAS FASTINGPERFORMED BY: Contact At Once![facility] RiverBwakkl4634 [facility] [id number] LDL/HDL Ratio 1.9 {ratio_units} (Normal) Range: 0.0-3.2 Comments: LDL/HDL Ratio Men Women 1/2 Avg.Risk 1.0 1.5 Av g.Risk 3.6 3.2 2X Avg.Risk 6.2 5.0 3X Avg.Risk 8.0 6.1 LDL Cholesterol Calc 109 mg/dL (Abnormal) Range: 0-99 VLDL Cholesterol Danny 19 mg/dL (Normal) Range: 5-40 HDL Cholesterol 58 mg/dL (Normal) Comments: According to ATP-III Guidelines, HDL-C >59 mg/dL is considered anegative risk factor for CHD. Triglycerides 97 mg/dL (Normal) Range: 0-149 Cholesterol, Total 186 mg/dL (Normal) Range: 100-199 :54 CALCIUM, IONIZED (27071) Comments: PATIENT WAS FASTINGPERFORMED BY: TastyKhana6370 [address]z RoadDublin [place] [id number] Calcium, Ionized, Serum 5.4 mg/dL (Normal) Range: 4.5-5.6 :54 CALCIFIDIOL (35008) VIT D 25 Comments: PATIENT WAS FASTINGPERFORMED BY: [employer] Cxutbu8041 Gamez RoadDublin [place] [id number] Vitamin D, 25-Hydroxy 19.7 ng/mL (Abnormal) Range: 30.0-100.0 Comments: Vitamin D deficiency has been defined by the [place] of[employer] and an Endocrine Society practice guideline as alevel of serum 25-OH vitamin D less than 20 ng/mL (1,2).The Endocrine Society went on to further define vitamin Dinsufficiency as a level between 21 and 29 ng/mL (2).1. IOM ([place] of [employer]). 2010. Dietary reference intakes for calcium and D. [place]: The National Academies Press.2. Andrea MF, Bhakti NC, Olamide GARCIA, et al. Evaluation, treatment, and prevention of vitamin D deficiency: an Endocrine Society clinical practice guideline. JCEM. 2010; 96(7):1911-30. :54 PT (Prothrobim Time) (28945) Comments: PATIENT WAS FASTINGPERFORMED BY: [employer] Raqmfj7531 [address]z Road[address]ublin [place] [id number] Prothrombin Time 10.3 {sec} (Normal) Range: 9.1-12.0 INR 1.0 (Normal) Range: 0.8-1.2 Comments: Reference interval is for non-anticoagulated patients. . Suggested INR therapeutic range for Vitamin K anta gonist therapy: Standard Dose (moderate intensity therapeutic range): 2.0 - 3.0 Higher intensity therapeutic range 2.5 - 3.5 :54 PTT (Activated Partial Comments: PATIENT WAS FASTINGPERFORMED BY: [address] [id number] Thromboplastin Time) (38760) aPTT 29 {sec} (Normal) Range: 24-33 Comments: This test has not been validated for monitoring unfractionated heparintherapy. aPTT-based therapeutic ranges for unfractionated heparintherapy have not been established. For general guidelines onHeparin monitoring, refer to the [facility] Directory of Services. :54 CBC (Auto) (86884) Comments: PATIENT WAS FASTINGPERFORMED BY: [address] [id number] Information: [id number],P18469; apt. 3-15-16 Platelets 315 {x10E3/uL} (Normal) Range: 150-379 RDW 15.1 % (Normal) Range: 12.3-15.4 MCHC 32.4 g/dL (Normal) Range: 31.5-35.7 MCH 25.4 pg (Abnormal) Range: 26.6-33.0 MCV 78 fL (Abnormal) Range: 79-97 Hematocrit 37.6 % (Normal) Range: 34.0-46.6 Hemoglobin 12.2 g/dL (Normal) Range: 11.1-15.9 RBC 4.80 {x10E6/uL} (Normal) Range: 3.77-5.28 WBC 6.3 {x10E3/uL} (Normal) Range: 3.4-10.8 :54 HCG Qualitative, Serum (67006) Comments: PATIENT WAS FASTINGPERFORMED BY: [address] [id number] hCG,Beta Subunit,Qual,Serum Negative m[iU]/mL (Normal) :54 TSH (81124) Comments: PATIENT WAS FASTINGPERFORMED BY: [address] [id number] TSH 1.280 {uIU/mL} (Normal) Range: 0.450-4.500 :54 PROLACTIN (33108) Comments: PATIENT WAS FASTINGPERFORMED BY: [facility]6370 [facility] [id number] Prolactin 20.3 ng/mL (Normal) Range: 4.8-23.3 :54 GONADOTROPIN-LH (55515) Comments: PATIENT WAS FASTINGPERFORMED BY: [facility]6370 [facility] [id number] LH 13.4 m[iU]/mL (Normal) Comments: Follicular phase 2.4 - 12.6 Ovulation phase 14.0 - 95.6 Luteal phase 1.0 - 11.4 Postmenopausal 7.7 - 58.5 :54 GONADOTROPIN-FSH (82157) Comments: PATIENT WAS FASTINGPERFORMED BY: [facility]6370 [facility] [id number] FSH 23.2 m[iU]/mL (Normal) Comments: Follicular phase 3.5 - 12.5 Ovulation phase 4.7 - 21.5 Luteal phase 1.7 - 7.7 Postmenopausal 25.8 - 134.8 06-Xjm-850038:39 Renal Profile Comments: [facility] [address] [place], [address] CO2 26.0 mmol/L (Normal) Range: 21.0-32.0 CL 111 mmol/L (Abnormal) Range: 98-107 K 4.1 mmol/L (Normal) Range: 3.5-5.1 NA 142 mmol/L (Normal) Range: 136-145 PHOS 2.6 mg/dL (Normal) Range: 2.5-4.9 CA 8.3 mg/dL (Abnormal) Range: 8.5-10.1 ALB 3.4 g/dL (Normal) Range: 3.4-5.0 BUN/CRE 11.3 {RATIO} (Normal) Range: 10-20 EST GFR - AA 100 mL/min (Normal) Comments: GFR Calc EST GFR 83 mL/min (Normal) Comments: Non- GFR Calc CREAT,SERUM 0.80 mg/dL (Normal) Range: 0.55-1.20 Comments: The validity of the calculated GFR AND GFRAA in patients over70 years has not been determined. Clinical correlation isessential. BUN 9 mg/dL (Normal) Range: 7-18 GLU 75 mg/dL (Normal) Range: 70-110 :50 Aldosterone, Serum Comments: Test performed at:[facility] [address] [place] [address] ALDOSTERON 4374 16.3 ng/dL (Normal) Range: 0.0-30.0 :50 [place] Comments: Test performed at:[facility] [address] [place] [address] ALMOND <0.10 kU/L (Normal) :50 Apple Comments: Test performed at:[facility] [address] [place] [address] APPLE <0.10 kU/L (Normal) Comments: Performed at: - [address] [id number] Director: Jose Villa MD, Phone: [phone] :[phone] Banana Comments: Test performed at:[facility] [address] [place] [address] BANANA <0.10 kU/L (Normal) :50 Barley, Whole Grain Comments: Test performed at:[facility] [address] [place] [address] BARLEY,WHOLE GR 0.12 kU/L (Abnormal) :50 Beef Comments: Test performed at:[facility] [address] [place] [address] BEEF <0.10 kU/L (Normal) :50 Carrot Comments: Test performed at:[facility] [address] [place] [address] CARROT <0.10 kU/L (Normal) :50 Casein Comments: Test performed at:[facility] [address] [place] [address] CASEIN <0.10 kU/L (Normal) :50 Cashew Comments: Test performed at:[facility] [address] [place] [address] CASHEW <0.10 kU/L (Normal) 72-Rqy-50093:50 Celery Comments: Test performed at:[facility] [address] [place] [address] CELERY <0.10 kU/L (Normal) :50 Cheddar Cheese Comments: Test performed at:[address] [place] [address] CHEDDAR CHEESE <0.10 kU/L (Normal) :50 Chicken Comments: Test performed at:[address] [place] [address] CHICKEN <0.10 kU/L (Normal) :50 Chocolate Comments: Test performed at:[facility] [address] [place] [address] CHOCOLATE <0.10 kU/L (Normal) :50 Clam Comments: Test performed at:[address] [place] [address] CLAM <0.10 kU/L (Normal) :50 Codfish Comments: Test performed at:[facility] [address] [place] [address] CODFISH <0.10 kU/L (Normal) :50 [place] Comments: Test performed at:[address] [place] [address] CORN <0.10 kU/L (Normal) :50 CORTISOL SERUM Comments: Test performed at:[place] [address] [place] [address] CORTISOL 12.72 ug/dL (Normal) Range: 3.09-22.40 Comments: Adult (AM) 4.30 - 22.40 ug/dL Adult (PM) 3.09 - 16.66 ug/dL :50 Crab Comments: Test performed at:[place] [address] [address] [place] [address] CRAB <0.10 kU/L (Normal) :50 Egg, White Comments: Test performed at:[place] [address] [facility] [place] [address] EGG,WHITE <0.10 kU/L (Normal) :50 Egg, Whole Comments: Test performed at:[facility] [address] [place] [address] EGG,WHOLE <0.10 kU/L (Normal) :50 Egg, Yolk Comments: Test performed at:[address] [place] [address] EGG, YOLK <0.10 kU/L (Normal) :50 Garlic Comments: Test performed at:[address] [place] [address] GARLIC <0.10 kU/L (Normal) :50 Gluten Comments: Test performed at:[facility] [address] [place] [address] GLUTEN <0.10 kU/L (Normal) :50 Hazelnut/Filbert Comments: Test performed at:[facility] [id number] [facility] [place] [address] Hazelnut/Filber <0.10 kU/L (Normal) :50 Lactalbumin Alpha Comments: Test performed at:[address] [address] LACTALBUMIN,ALP <0.10 kU/L (Normal) Comments: Levels of Specific IgE Class Description of Class ----- < 0.10 0 Negative 0.10 - 0.31 0/I Equivocal/Low 0.32 - 0.55 I Low 0.56 - 1.40 II Moderate 1.41 - 3.90 III High 3.91 - 19.00 IV Very High 19.01 - 100.00 V Very High >100.00 Very High :50 Lettuce Comments: Test performed at:[address] [address] LETTUCE <0.10 kU/L (Normal) :50 Lobster Comments: Test performed at:[address] [address] LOBSTER <0.10 kU/L (Normal) :50 Milk, (Cow) Comments: Test performed at:[address] [address] MILK (COW) <0.10 kU/L (Normal) :50 Oat Comments: Test performed at:[address] [address] OAT <0.10 kU/L (Normal) :50 Onion Comments: Test performed at:[address] [address] ONION <0.10 kU/L (Normal) :50 [place] Comments: Test performed at:[address] [address] [address] ORANGE <0.10 kU/L (Normal) :50 Pea Comments: Test performed at:[facility] [address] [place] [address] PEA <0.10 kU/L (Normal) :50 Mccreary Comments: Test performed at:[facility] [address] [place] [address] PEACH <0.10 kU/L (Normal) :50 Peanut Comments: Test performed at:[facility] [address] [place] [address] PEANUT <0.10 kU/L (Normal) Comments: Levels of Specific IgE Class Description of Class ----- < 0.10 0 Negative 0.10 - 0.31 0/I Equivocal/Low 0.32 - 0.55 I Low 0.56 - 1.40 II Moderate 1.41 - 3.90 III High 3.91 - 19.00 IV Very High 19.01 - 100.00 V Very High >100.00 Very High :50 Pecan Comments: Test performed at:[address] [place] [address] PECAN <0.10 kU/L (Normal) :50 Pork Comments: Test performed at:[facility] [address] [place] [address] PORK <0.10 kU/L (Normal) :50 Potato, White Comments: Test performed at:[facility] [address] [place] [address] POTATO,WHITE <0.10 kU/L (Normal) :50 Renin, Plasma Comments: Test performed at:[address] [place] [address] RENIN,PL 2006 1.78 {ng/mL/hr} (Normal) Comments: Adult Normal Salt Intake: Upright 1.31 - 3.95 Supine 0.15 - 2.33 Salt Excretion (Na mEq/24 hr): Na= 0 - 30 8.82 - 23.86 Na= 30 - 75 4.09 - 7.73 Na= 75 - 150 1.44 - 2.80 Na= >150 0.39 - 1.31Performed at: [facility] ([facility]) [address] [id number] Director: Jose Villa MD, Phone: [phone] :50 Rice Comments: Test performed at:[facility] [address] [place] [address] RICE <0.10 kU/L (Normal) :50 [place] Comments: Test performed at:[facility] [address] [place] [address] RYE 0.10 kU/L (Abnormal) :50 Casco Comments: Test performed at:[facility] [address] [place] [address] SALMON <0.10 kU/L (Normal) :50 Shrimp Comments: Test performed at:[facility] [address] [place] [address] SHRIMP 0.14 kU/L (Abnormal) :50 Soybean Comments: Test performed at:[facility] [address] [place] [address] SOYBEAN <0.10 kU/L (Normal) :50 Hadley Comments: Test performed at:[facility] [address] [place] [address] STRAWBERRY <0.10 kU/L (Normal) :50 Tomato Comments: Test performed at:[facility] [address] [place] [id number] TOMATO <0.10 kU/L (Normal) :50 Tuna Comments: Test performed at:[facility] [address] [place] [address] TUNA <0.10 kU/L (Normal) 69-Qqt-50439:50 [place] Comments: Test performed at:[facility] [address] [place] [address] TURKEY [address] <0.10 kU/L (Normal) Comments: Performed at: [facility]) [address] [id number] Director: Jose Villa MD, Phone: [phone] :50 Vitamin D,25 Hydroxy Comments: Test performed at:[facility] [address] [place] [address] Vitamin D 25-OH 23.8 ng/mL (Normal) Comments: Vitamin D 25(OH) Status Range Deficiency <20 ng/mL (50nmol/L) Insuffciency 20 - 30 ng/mL (50 - 75 nmol/L) Sufficiency 30 - 100 ng/mL (75 - 250 nmol/L) Toxicity >100 ng/mL (>250 nmol/L) :[address], (Food) Comments: Test performed at:[facility] [address] [place] [address] WALNUT <0.10 kU/L (Normal) :50 Wheat Comments: Test performed at:[facility] [address] [place] [address] WHEAT [address] 0.27 kU/L (Abnormal) :50 Yeast Comments: Test performed at:[facility] [address] [place] [address] YEAST, BREWERS <0.10 kU/L (Normal) :04 Catecholamines, 24 UR Comments: Test performed at:[facility] [address] [place] [address] DOPAMINE,U24 122 Range: 0-510 {ug/24_hr} Comments: TESTING PERFORMED AT [facility]. ORIGINAL REPORT ON FILE IN LAB CONTAINS ADDITIONAL TEST SITE INFORMATION. (Normal) DOPAMINE,UR 106 ug/L (Normal) NOREPINEPH,U2 43 Range: 0-135 4 {ug/24_hr} (Normal) EPINEPHRINE,U 2 Range: 0-20 24 {ug/24_hr} (Normal) NOREPINEPH,UR 37 ug/L (Normal) EPINEPHRINE, 2 ug/L UR (Normal) 69-Sjx-05470:04 Metanephrine Frac 24 HR UR Comments: Test performed at:[facility] [address] [place], [place] [address] METANEPH,U24 54 {ug/24_hr} (Normal) Range: 45-290 Comments: (Hypertensive) >17 years 11 months: 35 - 460Performed at: [address] [id number] Director: Jose Villa MD, Phone: [phone] METANEPHRINE,UR 47 ug/L (Normal) NORMETANEPH,U24 242 {ug/24_hr} (Normal) Range: 82-500 Comments: (Hypertensive) >17 years 11 months: 110 - 1050 NORMETANEPH,UR 210 ug/L (Normal) 1-Ixh-952243:14 Renal function Panel Comments: PATIENT NOT FASTINGPERFORMED BY: [facility] Zxxozi6157 [facility] [id number] Information: [id number] (02132) Albumin, Serum 4.2 g/dL (Normal) Range: 3.5-5.5 Phosphorus, Serum 4.2 mg/dL (Normal) Range: 2.5-4.5 Calcium, Serum 9.6 mg/dL (Normal) Range: 8.7-10.2 Carbon Dioxide, Total 28 mmol/L (Normal) Range: 18-29 Chloride, Serum 99 mmol/L (Normal) Range: 97-108 Potassium, Serum 4.2 mmol/L (Normal) Range: 3.5-5.2 Sodium, Serum 141 mmol/L (Normal) Range: 134-144 BUN/Creatinine Ratio 15 (Normal) Range: 9-23 eGFR If Africn Am 106 mL/min/1.73 (Normal) eGFR If NonAfricn Am 92 mL/min/1.73 (Normal) Creatinine, Serum 0.79 mg/dL (Normal) Range: 0.57-1.00 BUN 12 mg/dL (Normal) Range: 6-24 Glucose, Serum 82 mg/dL (Normal) Range: 65-99 2-Eql-893557:14 IRON & TOTAL IRON BINDING Comments: PATIENT NOT FASTINGPERFORMED BY: HERMEL DELOR70 [facility] [id number] CAPACITY (98507) Iron Saturation 37 % (Normal) Range: 15-55 Iron, Serum 125 ug/dL (Normal) Range: 35-155 UIBC 210 ug/dL (Normal) Range: 150-375 Iron Bind.Cap.(TIBC) 335 ug/dL (Normal) Range: 250-450 :14 MAGNESIUM (65026) Comments: PATIENT NOT FASTINGPERFORMED BY: TastyKhana6370 [facility] [id number] Magnesium, Serum 2.1 mg/dL (Normal) Range: 1.6-2.6 24-Nhh-76054:10 CBC, Platelets & Auto Diff Comments: PATIENT NOT FASTINGPERFORMED BY: [employer] Tqovax3711 [facility] [id number] Information: [id number] (39804) Immature Grans (Abs) 0.0 {x10E3/uL} (Normal) Range: 0.0-0.1 Immature Granulocytes 0 % (Normal) Baso (Absolute) 0.0 {x10E3/uL} (Normal) Range: 0.0-0.2 Eos (Absolute) 0.1 {x10E3/uL} (Normal) Range: 0.0-0.4 Monocytes(Absolute) 0.7 {x10E3/uL} (Normal) Range: 0.1-0.9 Lymphs (Absolute) 1.7 {x10E3/uL} (Normal) Range: 0.7-3.1 Neutrophils (Absolute) 6.6 {x10E3/uL} (Normal) Range: 1.4-7.0 Basos 0 % (Normal) Eos 2 % (Normal) Monocytes 8 % (Normal) Lymphs 18 % (Normal) Neutrophils 72 % (Normal) Platelets 350 {x10E3/uL} (Normal) Range: 150-379 RDW 16.1 % (Abnormal) Range: 12.3-15.4 MCHC 29.7 g/dL (Abnormal) Range: 31.5-35.7 MCH 22.4 pg (Abnormal) Range: 26.6-33.0 MCV 75 fL (Abnormal) Range: 79-97 Hematocrit 39.7 % (Normal) Range: 34.0-46.6 Hemoglobin 11.8 g/dL (Normal) Range: 11.1-15.9 RBC 5.27 {x10E6/uL} (Normal) Range: 3.77-5.28 WBC 9.2 {x10E3/uL} (Normal) Range: 3.4-10.8 :10 T4, FREE (THYROXINE) (98581) Comments: PATIENT NOT FASTINGPERFORMED BY: [place] [facility] Hwtlph3912 [facility] [id number] T4,Free(Direct) 1.32 ng/dL (Normal) Range: 0.82-1.77 :10 T3, FREE (TRIDOTHYRONINE) (04901) Comments: PATIENT NOT FASTINGPERFORMED BY: [facility]opolymersM[facility]6370 [facility] [id number] Triiodothyronine,Free,Serum 2.4 pg/mL (Normal) Range: 2.0-4.4 :10 TSH (23124) Comments: PATIENT NOT FASTINGPERFORMED BY: Contact At Once![facility] RiverSuggbb6984 [facility] [id number] TSH 0.631 {uIU/mL} (Normal) Range: 0.450-4.500 :10 Renal function Panel (66016) Comments: PATIENT NOT FASTINGPERFORMED BY: [employer] [facility] [id number] Albumin, Serum 4.1 g/dL (Normal) Range: 3.5-5.5 Phosphorus, Serum 3.9 mg/dL (Normal) Range: 2.5-4.5 Calcium, Serum 9.5 mg/dL (Normal) Range: 8.7-10.2 Carbon Dioxide, Total 27 mmol/L (Normal) Range: 18-29 Chloride, Serum 97 mmol/L (Normal) Range: 97-108 Potassium, Serum 4.3 mmol/L (Normal) Range: 3.5-5.2 Sodium, Serum 137 mmol/L (Normal) Range: 134-144 BUN/Creatinine Ratio 15 (Normal) Range: 9-23 eGFR If Africn Am 93 mL/min/1.73 (Normal) eGFR If NonAfricn Am 81 mL/min/1.73 (Normal) Creatinine, Serum 0.88 mg/dL (Normal) Range: 0.57-1.00 BUN 13 mg/dL (Normal) Range: 6-24 Glucose, Serum 81 mg/dL (Normal) Range: 65-99 :01 Microscopic Examination Comments: PATIENT WAS FASTINGPERFORMED BY: [employer] [facility] [id number] Bacteria Few (Normal) Mucus Threads Present (Normal) Epithelial Cells (non renal) 0-10 {/hpf} (Normal) Range: 0 - 10 RBC None seen {/hpf} (Normal) Range: 0 - 2 Comments: Please note reference interval change WBC 0-5 {/hpf} (Normal) Range: 0 - 5 :31 PROLACTIN (49485) Comments: PATIENT WAS FASTINGPERFORMED BY: [facility]ose.comHealthSouth - [facility] Toms RiverNjcehh6958 [facility] [id number] Prolactin 31.9 ng/mL (Abnormal) Range: 4.8-23.3 :31 TSH (THYROID STIMULATING Comments: PATIENT WAS FASTINGPERFORMED BY: TastyKhana6370 [facility] Networkblin [place] [id number] Information: [id number] HORMONE) (01346) TSH 1.100 {uIU/mL} (Normal) Range: 0.450-4.500 2-Lpl-306336:18 HPV automatic Comments: Source.............Cervical;EndocervicalNo. of containers..01 CYTYC Thin Prep VialPATIENT NOT FASTINGPERFORMED BY: WB [facility] [address] [id number] BY: =G L (10723) [facility] [address] [id number] Information: [id number] HPV, high-risk Negative Comments: This high-risk HPV test detects thirteen high- risk types(16/18/31/33/35/39/45/51/52/56/58/59/68) without differentiation. . (Normal) Pathologist [facility] Comments: 795.01The Pap smear is a screening test designed to aid in the detection ofpremalignant and malignant conditions of the uterine cervix. It is not adiagnostic procedure and should not be used as the zackary provided ICD9: (Normal) e means of detectingcervical cancer. Both false-positive and false-negative reports do occur. .This liquid based ThinPrep(R) pap test was screened with theuse of an image guided system. See Note . (Normal) DIAGNOSIS: [facility] Comments: EPITHELIAL CELL ABNORMALITY.ATYPICAL SQUAMOUS CELLS OF UNDETERMINED SIGNIFICANCE.Suggest follow up as clinically appropriate.Satisfactory for evaluation. Endocervical and/or squamous metapl asticcells ( (Abnormal) endocervical component) are present.V73.81 ; Special screening examination, human papillomavirus [HPV]Sheldon Todd, Managed Care Director (ASCP)Suleman Merchant MD, Pathologist :32 CALCIFIDIOL (33594) VIT D 25 Comments: PATIENT WAS FASTINGPERFORMED BY: [facility] Jvtlaa4897 [facility] CenterDublin [place] [id number] Vitamin D, 25-Hydroxy 22.3 ng/mL (Abnormal) Range: 30.0-100.0 Comments: Vitamin D deficiency has been defined by the [place] of[place]icine and an Endocrine Society practice guideline as alevel of serum 25-OH vitamin D less than 20 ng/mL (1,2).The Endocrine Society went on to further define vitamin Dinsufficiency as a level between 21 and 29 ng/mL (2).1. IOM ([place] of Medicine). 2010. Dietary reference intakes for calcium and D. [place]: The National Academies Press.2. Andrea MF, Bhakti RIZVI, Olamide GARCIA, et al. Evaluation, treatment, and prevention of vitamin D deficiency: an Endocrine Society clinical practice guideline. JCEM. 2010; 96(7):1911-30. :32 URINALYSIS, W/ MICRO (11343) Comments: PATIENT WAS FASTINGPERFORMED BY: [place] [id number] Microscopic Examination See below: (Normal) Microscopic Examination MICRON (Normal) Comments: Microscopic follows if indicated. Nitrite, Urine Negative (Normal) Urobilinogen,Semi-Qn 0.2 mg/dL (Normal) Range: 0.0-1.9 Bilirubin Negative (Normal) Occult Blood Negative (Normal) Ketones Negative (Normal) Glucose Negative (Normal) Protein Trace (Normal) WBC Esterase Negative (Normal) Appearance Cloudy (Abnormal) Urine-Color Yellow (Normal) pH 8.0 (Abnormal) Range: 5.0-7.5 Specific [place] 1.019 (Normal) Range: 1.005-1.030 :32 METABOLIC PANEL, COMPREHENSIVE Comments: PATIENT WAS FASTINGPERFORMED BY: HERMEL DELOR70 [place] [id number] (48811) ALT (SGPT) 9 [iU]/L (Normal) Range: 0-32 AST (SGOT) 16 [iU]/L (Normal) Range: 0-40 Alkaline Phosphatase, S 65 [iU]/L (Normal) Range: 39-117 Bilirubin, Total 0.3 mg/dL (Normal) Range: 0.0-1.2 A/G Ratio 1.3 (Normal) Range: 1.1-2.5 Globulin, Total 3.0 g/dL (Normal) Range: 1.5-4.5 Albumin, Serum 3.8 g/dL (Normal) Range: 3.5-5.5 Protein, Total, Serum 6.8 g/dL (Normal) Range: 6.0-8.5 Calcium, Serum 8.9 mg/dL (Normal) Range: 8.7-10.2 Carbon Dioxide, Total 25 mmol/L (Normal) Range: 19-28 Comments: Effective April 14, 2014, the reference interval for Carbon Dioxide, Total will be changing to: 0 - 30 days - 31 d - 5 months - 6 m - 11 months 1 - 12 years 17 - 27 > 12 years 18 - 29 Chloride, Serum 102 mmol/L (Normal) Range: 97-108 Potassium, Serum 4.6 mmol/L (Normal) Range: 3.5-5.2 Sodium, Serum 140 mmol/L (Normal) Range: 134-144 BUN/Creatinine Ratio 15 (Normal) Range: 9-23 eGFR If Africn Am 117 mL/min/1.73 (Normal) eGFR If NonAfricn Am 102 mL/min/1.73 (Normal) Creatinine, Serum 0.73 mg/dL (Normal) Range: 0.57-1.00 BUN 11 mg/dL (Normal) Range: 6-24 Glucose, Serum 81 mg/dL (Normal) Range: 65-99 :32 LIPID PANEL (97378) Comments: PATIENT WAS FASTINGPERFORMED BY: HERMEL DELOR70 [facility] [id number] LDL/HDL Ratio 1.2 {ratio_units} (Normal) Range: 0.0-3.2 LDL Cholesterol Calc 73 mg/dL (Normal) Range: 0-99 VLDL Cholesterol Danny 31 mg/dL (Normal) Range: 5-40 HDL Cholesterol 59 mg/dL (Normal) Comments: According to ATP-III Guidelines, HDL-C >59 mg/dL is considered anegative risk factor for CHD. Triglycerides 156 mg/dL (Abnormal) Range: 0-149 Cholesterol, Total 163 mg/dL (Normal) Range: 100-199 :32 CBC WITH MANUAL DIFF Comments: PATIENT WAS FASTINGPERFORMED BY: HERMEL DELOR70 [facility] [id number] Information: [id number] ORDER NO DRAW F EE (78884) Immature Grans (Abs) 0.0 {x10E3/uL} (Normal) Range: 0.0-0.1 Immature Granulocytes 0 % (Normal) Range: 0-2 Baso (Absolute) 0.0 {x10E3/uL} (Normal) Range: 0.0-0.2 Eos (Absolute) 0.2 {x10E3/uL} (Normal) Range: 0.0-0.4 Monocytes(Absolute) 0.6 {x10E3/uL} (Normal) Range: 0.1-0.9 Lymphs (Absolute) 1.6 {x10E3/uL} (Normal) Range: 0.7-3.1 Neutrophils (Absolute) 6.3 {x10E3/uL} (Normal) Range: 1.4-7.0 Basos 0 % (Normal) Range: 0-3 Eos 3 % (Normal) Range: 0-5 Monocytes 7 % (Normal) Range: 4-12 Lymphs 18 % (Normal) Range: 14-46 Neutrophils 72 % (Normal) Range: 40-74 Platelets 291 {x10E3/uL} (Normal) Range: 155-379 Comments: Effective April 14, 2014, the reference interval for Platelets will be changing for 13 years and older to: 150 - 379 RDW 13.9 % (Normal) Range: 12.3-15.4 MCHC 32.9 g/dL (Normal) Range: 31.5-35.7 MCH 27.3 pg (Normal) Range: 26.6-33.0 MCV 83 fL (Normal) Range: 79-97 Hematocrit 38.9 % (Normal) Range: 34.0-46.6 Hemoglobin 12.8 g/dL (Normal) Range: 11.1-15.9 RBC 4.69 {x10E6/uL} (Normal) Range: 3.77-5.28 WBC 8.8 {x10E3/uL} (Normal) Range: 3.4-10.8 1-Qzn-649602:43 Metabolic Panel, Basic Comments: PATIENT NOT FASTINGPERFORMED BY: KENNETH [facility] Rmiogf4049 [facility] [id number] Information: [id number] (86438) Calcium, Serum 9.6 mg/dL (Normal) Range: 8.7-10.2 Carbon Dioxide, Total 28 mmol/L (Normal) Range: 19-28 Chloride, Serum 100 mmol/L (Normal) Range: 97-108 Potassium, Serum 4.3 mmol/L (Normal) Range: 3.5-5.2 Sodium, Serum 139 mmol/L (Normal) Range: 134-144 BUN/Creatinine Ratio 19 (Normal) Range: 9-23 eGFR If Africn Am 105 mL/min/1.73 (Normal) eGFR If NonAfricn Am 91 mL/min/1.73 (Normal) BUN 15 mg/dL (Normal) Range: 6-24 Creatinine, Serum 0.80 mg/dL (Normal) Range: 0.57-1.00 Glucose, Serum 70 mg/dL (Normal) Range: 65-99 :28 LIPID VLDL 20 mg/dL (Normal) Range: 5-40 LDL 76 mg/dL (Normal) Range: 0-130 HDL 53 mg/dL (Normal) Comments: Reference RangeHDL <40 mg/dL Low HDL CholesterolHDL >or= 60 mg/dL High HDL Cholesterol TRIG 99 mg/dL (Normal) Range: 0-199 Comments: Serum Triglycerides Reference IntervalNormal <150 mg/dLBorderline high 150 - 199 mg/dLHigh 200 - 499 mg/ dLVery High > or = 500 mg/dL CHOL 149 mg/dL (Normal) Comments: <200 mg/dL Ujwcwoyjv754-693 mg/dL Borderline>240 mg/dL High Risk :28 TSH 0.80 {uIU/mL} (Normal) Range: 0.358-3.74 :28 VITD 45.5 mg/mL (Normal) Comments: Vitamin D 25(OH) Status RangeDeficiency <20 ng/mL (50nmol/L)Insuffciency 20 - 30 ng/mL (50 - 75 nmol/L)Sufficiency 30 - 100 ng/mL (75 - 250 nmol/L)Toxicity >100 ng/mL (>250 nmol/L) :48 Blood Glucose , Office (85782) Blood Glucose , Office 87 (Normal) 8-Xbq-116829:48 HgA1C , Office (16556) HgA1C , Office 5.7 % (Normal) Range: 4.6 - 7.1 33-Mea-753518:59 Urinalysis, Office (65065) UA - BILIRUBIN Negative (Normal) UA - BLOOD Hemolyzed Small (Normal) UA - GLUCOSE Negative (Normal) UA - KETONES Negative mg/dL (Normal) UA - LEUKOCYTE ESTERASE Negative (Normal) UA - NITRITE Negative (Normal) UA - PH 7.0 (Normal) UA - PROTEIN Negative mg/dL (Normal) UA - SPECIFIC GRAVITY 1.010 (Normal) URINE UROBILINGN MIC TIMED 2 mg/dL (Normal) :49 CALCIFEDIOL (57213) Comments: PATIENT WAS FASTINGPERFORMED BY: Contact At Once! Uyzxur1939 [facility] [id number] Vitamin D, 25-Hydroxy 10.6 ng/mL (Abnormal) Range: 30.0-100.0 Comments: Vitamin D deficiency has been defined by the [place] ofC[facility] Hospitalcine and an Endocrine Society practice guideline as alevel of serum 25-OH vitamin D less than 20 ng/mL (1,2).The Endocrine Society went on to further define vitamin Dinsufficiency as a level between 21 and 29 ng/mL (2).1. IOM ([place] of Medicine). 2010. Dietary reference intakes for calcium and D. [place]: The National Academies Press.2. Andrea MF, Bhakti NC, Olamide GARCIA, et al. Evaluation, treatment, and prevention of vitamin D deficiency: an Endocrine Society clinical practice guideline. JCEM. 2010; 96(7):1911-30. :49 METABOLIC PANEL, Comments: PATIENT WAS FASTINGPERFORMED BY: [facility] Wjnqsl4047 [facility] [id number] Information: [id number] COMPREHENSIVE (78853) ALT (SGPT) 15 [iU]/L (Normal) Range: 0-40 AST (SGOT) 18 [iU]/L (Normal) Range: 0-40 Alkaline Phosphatase, S 65 [iU]/L (Normal) Range: 25-150 Bilirubin, Total 0.4 mg/dL (Normal) Range: 0.0-1.2 A/G Ratio 1.4 (Normal) Range: 1.1-2.5 Globulin, Total 2.8 g/dL (Normal) Range: 1.5-4.5 Albumin, Serum 4.0 g/dL (Normal) Range: 3.5-5.5 Protein, Total, Serum 6.8 g/dL (Normal) Range: 6.0-8.5 Calcium, Serum 8.9 mg/dL (Normal) Range: 8.7-10.2 Carbon Dioxide, Total 25 mmol/L (Normal) Range: 20-32 Chloride, Serum 104 mmol/L (Normal) Range: 97-108 Potassium, Serum 4.2 mmol/L (Normal) Range: 3.5-5.2 Sodium, Serum 140 mmol/L (Normal) Range: 134-144 BUN/Creatinine Ratio 11 (Normal) Range: 9-23 eGFR If Africn Am 115 mL/min/1.73 (Normal) eGFR If NonAfricn Am 100 mL/min/1.73 (Normal) Creatinine, Serum 0.75 mg/dL (Normal) Range: 0.57-1.00 BUN 8 mg/dL (Normal) Range: 6-24 Glucose, Serum 76 mg/dL (Normal) Range: 65-99 :49 CBC & PLATELETS (AUTO) (46363) Comments: PATIENT WAS FASTINGPERFORMED BY: [facility] Toms RiverNbafsm7984 [facility] [id number] Platelets 273 {x10E3/uL} (Normal) Range: 140-415 RDW 13.4 % (Normal) Range: 11.7-15.0 MCHC 33.3 g/dL (Normal) Range: 32.0-36.0 MCH 28.1 pg (Normal) Range: 27.0-34.0 MCV 85 fL (Normal) Range: 80-98 Hematocrit 42.4 % (Normal) Range: 34.0-44.0 Hemoglobin 14.1 g/dL (Normal) Range: 11.5-15.0 RBC 5.02 {x10E6/uL} (Normal) Range: 3.80-5.10 WBC 8.1 {x10E3/uL} (Normal) Range: 4.0-10.5 :49 LIPID PANEL (17780) Comments: PATIENT WAS FASTINGPERFORMED BY: Contact At Once![facility] Toms RiverEtuygm8714 [facility] [id number] LDL/HDL Ratio 1.2 {ratio_units} (Normal) Range: 0.0-3.2 LDL Cholesterol Calc 68 mg/dL (Normal) Range: 0-99 VLDL Cholesterol Danny 28 mg/dL (Normal) Range: 5-40 HDL Cholesterol 57 mg/dL (Normal) Comments: According to ATP-III Guidelines, HDL-C >59 mg/dL is considered anegative risk factor for CHD. Triglycerides 138 mg/dL (Normal) Range: 0-149 Cholesterol, Total 153 mg/dL (Normal) Range: 100-199 02-Mar-20129:49 TSH (THYROID STIMULATING Comments: PATIENT WAS FASTINGPERFORMED BY: Contact At Once![facility] Toms RiverLtkveq8439 [facility] [id number] HORMONE) (52567) TSH 0.818 {uIU/mL} (Normal) Range: 0.450-4.500 07-Rbp-594962:47 KIDNEY Radiology Report See Note (Normal) Comments: CLINICAL:Female, 40 years old. The patient has a history of urinary tractinfection. RENAL ULTRASOUND - COMPLETE TECHNIQUE:Ultrasound evaluation of the bilateral kidneys was performed with real-timeultra sonography and static grayscale imaging. COMPARISON:None. FINDINGS: RIGHT KIDNEY: Normal location of the right kidney which is normal insize.The right kidney measures 10.2 cm. There is a normal cortex o f the rightkidney. There is no right renal mass or cyst. There are no right renalcalculi. There is no right hydronephrosis. DISTAL RIGHT URETER: There is non-visualization of the distal rightureter.Ther e is no demonstrated right ureterovesical junction calculus. There isavisualized right ureteral jet. LEFT KIDNEY: Normal location of the left kidney which is normal in size.The left kidney measures 8.7 cm. There is a normal cortex of the leftkidney. There is no left renal mass or cyst. There are no left renalcalculi. There is no left hydronephrosis. DISTAL LEFT URETER: There is non-visualization of th e distal left ureter.There is no demonstrated left ureterovesical junction calculus. There isavisualized left ureteral jet. BLADDER: There is a normal wall thickness of the distended urinarybladder.Ther e is no demonstrated mass within the urinary bladder. There is nodemonstrated bladder calculi. IMPRESSION:Normal ultrasound examination of the bilateral kidneys and urinarybladder. Dictated on 0938 by Donna Sandy MDranscribed on 02/24/111118 by ITS IMPORTSign by Moise Sandy MD on 02/24/111118 Sign by: Moise Sandy MD 86-Blf-24247:11 URINE ABRAHAM CULTURE-MIC COL Comments: PATIENT NOT FASTINGPERFORMED BY: [employer] LabLat49rp Ngsuef8052 [employer] HazelMailFormerly [facility] [id number] Information: SRC:UR [id number] COUNT (04316) Result 1 NG36 (Normal) Comments: No growth in 36 - 48 hours. Urine Culture,Comprehensive Final report (Normal) :10 Metabolic Panel, Basic Comments: PATIENT NOT FASTINGPERFORMED BY: [employer] [facility] Qldicm9823 [facility] [id number] Information: [id number] (10913) Calcium, Serum 9.2 mg/dL (Normal) Range: 8.7-10.2 Carbon Dioxide, Total 26 mmol/L (Normal) Range: 20-32 Chloride, Serum 103 mmol/L (Normal) Range: 97-108 Potassium, Serum 4.5 mmol/L (Normal) Range: 3.5-5.2 Sodium, Serum 140 mmol/L (Normal) Range: 135-145 BUN/Creatinine Ratio 6 (Abnormal) Range: 8-20 eGFR AfricanAmerican >59 mL/min/1.73 Comments: Note: Persistent reduction for 3 months or more in an eGFR<60 mL/min/1.73 m2 defines CKD. Patients with eGFR values>/=60 mL/min/1.73 m2 may also have CKD if evidence of persistentproteinuria is (Normal) present. Additional information may be found [email or web address] .Effective January 31, 2011, Glom Filt Rate, Estimated, will be calculated using the CK-EPI formula. eGFR >59 mL/min/1.73 (Normal) BUN 5 mg/dL (Abnormal) Range: 6-20 Creatinine, Serum 0.78 mg/dL (Normal) Range: 0.57-1.00 Glucose, Serum 75 mg/dL (Normal) Range: 65-99 62-Srs-93564:32 Urinalysis, Office (25918) UA - BILIRUBIN Negative (Normal) UA - BLOOD Non Hemolyzed Moderate (Normal) UA - GLUCOSE Negative (Normal) UA - KETONES Negative mg/dL (Normal) UA - LEUKOCYTE ESTERASE Trace (Normal) UA - NITRITE Negative (Normal) UA - PH 7.0 (Normal) UA - PROTEIN 300 mg/dL (Normal) UA - SPECIFIC GRAVITY 1.025 (Normal) URINE UROBILINGN MIC TIMED 2 mg/dL (Normal) 73-Wya-247484:47 URINE ABRAHAM CULTURE-MIC COL Comments: PATIENT NOT FASTINGPERFORMED BY: [facility] [id number] Gamez HazelMailFormerly [facility] [id number] Information: SRC:UR [id number] COUNT ([id number]) Antimicrobial MIHEAD (Normal) Comments: S = Susceptible; I = Intermediate; R = Resistant P = Positive; N = NegativeMICS are expressed in micrograms per mLAntibiotic RSLT#1 RSLT#2 RSLT#3 RSLT#4Am oxicillin/Cl Susceptibility avulanic Acid SAmpicillin RCefepime SCeftriaxone SCefuroxime SCephalothin SCiprofloxacin RESBL NGentamicin RImipenem SLevofloxacin RNitrofurantoin SPiperacillin/Tazobactam Bel tracycline STobramycin ITrimethoprim/Sulfa S Result 1 Escherichia coli Comments: Greater than 100,000 colony forming units per mL (Normal) Urine Final report (Normal) Culture,Comprehensive 07-Fni-26736:16 URINE ABRAHAM CULTURE-MIC COL Comments: PATIENT NOT FASTINGPERFORMED BY: [facility] [id number] [facility] [id number] Information: SRC:UR [id number] COUNT ([id number]) Antimicrobial MIHEAD (Normal) Comments: S = Susceptible; I = Intermediate; R = Resistant P = Positive; N = NegativeMICS are expressed in micrograms per mLAntibiotic RSLT#1 RSLT#2 RSLT#3 RSLT#4Am oxicillin/Cl Susceptibility avulanic Acid IAmpicillin RCefepime SCeftriaxone SCefuroxime SCephalothin SCiprofloxacin SESBL NGentamicin SImipenem SLevofloxacin SNitrofurantoin SPiperacillin/Tazobactam Bel tracycline STobramycin STrimethoprim/Sulfa R Result 1 Escherichia coli Comments: Greater than 100,000 colony forming units per mL (Normal) Urine Final report (Normal) Culture,Comprehensive 78-Vsu-139225:02 Urinalysis, Office (86449) UA - BILIRUBIN Negative (Normal) UA - BLOOD Non Hemolyzed Moderate (Normal) UA - GLUCOSE Negative (Normal) UA - KETONES Negative mg/dL (Normal) UA - LEUKOCYTE ESTERASE Trace (Normal) Comments: aw UA - NITRITE Positive (Normal) UA - PH 8.5 (Normal) UA - PROTEIN 300 mg/dL (Normal) UA - SPECIFIC GRAVITY 1.025 (Normal) URINE UROBILINGN MIC TIMED Normal mg/dL (Normal) 62-Ewn-873982:35 Rapid Strep Test, Office (67910) Comments: neg Rapid Strep Test, Office Negative (Normal) 01-Enu-072935:56 Urinalysis, Office (49527) UA - BILIRUBIN Negative (Normal) UA - BLOOD Non Hemolyzed Trace (Normal) UA - GLUCOSE Negative (Normal) UA - KETONES Negative mg/dL (Normal) UA - LEUKOCYTE ESTERASE Negative (Normal) UA - NITRITE Negative (Normal) UA - PH 7.0 (Normal) UA - PROTEIN Negative mg/dL (Normal) UA - SPECIFIC GRAVITY 1.005 (Normal) URINE UROBILINGN MIC TIMED 2 mg/dL (Normal) 74-Euo-981929:41 ABDOMEN WITHOUT CONTRAST Radiology Report See Note (Normal) Comments: Exam Number: [id number] CT OF THE ABDOMEN AND PELVIS WITHOUT CONTRAST CLINICAL INFORMATIONLeft flank pain, calcific density on lumbar radiograph. CT of the abdomen and pelvis was obtained without adminis tration oforal or intravenous contrast, per renal stone protocol. Axial imageswere obtained from the lung bases to just below the inferior pubicrami at 3.75-mm slice thickness throughout. Comparison w as made tothe recent lumbar spine radiographs. Images through the lung bases demonstrate no acute process in thevisualized portions of the lungs. No effusions are evident. Evaluation of the solid o rgans of the abdomen is limited by the lackof contrast. No gross abnormalities of the liver, spleen and pancreasare seen. There are no obvious gallstones. The kidneys appear to besymmetric in size wit h no evidence of hydronephrosis. There appear tracy tiny calculi within the left kidney measuring only approximately1 mm at most. No ureteral calculi are evident. Unopacified bowelloops appear to be o f normal caliber. By history, the patient has hadprevious appendectomy. The calcific densities seen on the plainradiograph is seen on the CT scan, appearing to lie in or near theregion of the terminal ileum. This might represent a calcified lymphnode. Images into the pelvis demonstrate no evidence of pelvic mass or freefluid. IMPRESSIONUnremarkable unenhanced CT scan of the abdomen and pelvis. Specifically, there is no evidence of hydronephrosis and no ureteralcalculi are seen. There appear to be 1 or 2 tiny calculi in the leftkidney, measuring only 1-mm in size. The calcific densities seen onthe lumbar spine radiograph appears to lie in or near the terminalileum and could represent a calcified node. Reported By: LUCIEN PALMA M.D. 30-Sam-511521:41 PELVIS WITHOUT CONTRAST Radiology Report See Note (Normal) Comments: Exam Number: [id number] CT OF THE ABDOMEN AND PELVIS WITHOUT CONTRAST CLINICAL INFORMATIONLeft flank pain, calcific density on lumbar radiograph. CT of the abdomen and pelvis was obtained without adminis tration oforal or intravenous contrast, per renal stone protocol. Axial imageswere obtained from the lung bases to just below the inferior pubicrami at 3.75-mm slice thickness throughout. Comparison w as made tothe recent lumbar spine radiographs. Images through the lung bases demonstrate no acute process in thevisualized portions of the lungs. No effusions are evident. Evaluation of the solid o rgans of the abdomen is limited by the lackof contrast. No gross abnormalities of the liver, spleen and pancreasare seen. There are no obvious gallstones. The kidneys appear to besymmetric in size wit h no evidence of hydronephrosis. There appear tracy tiny calculi within the left kidney measuring only approximately1 mm at most. No ureteral calculi are evident. Unopacified bowelloops appear to be o f normal caliber. By history, the patient has hadprevious appendectomy. The calcific densities seen on the plainradiograph is seen on the CT scan, appearing to lie in or near theregion of the terminal ileum. This might represent a calcified lymphnode. Images into the pelvis demonstrate no evidence of pelvic mass or freefluid. IMPRESSIONUnremarkable unenhanced CT scan of the abdomen and pelvis. Specifically, there is no evidence of hydronephrosis and no ureteralcalculi are seen. There appear to be 1 or 2 tiny calculi in the leftkidney, measuring only 1-mm in size. The calcific densities seen onthe lumbar spine radiograph appears to lie in or near the terminalileum and could represent a calcified node. Reported By: LUCIEN PALMA M.D. 25-Owt-803186:35 L/S SPINE,MIN 4 VIEWS Radiology Report See Note (Normal) Comments: Exam Number: [id number] LUMBAR SPINE CLINICAL INFORMATIONLumbago. Complete lumbar spine series was performed. Prior to the exam, thepatient stated that there was a possibility of , however, the patient refused both serum and urine tests and insisted thatthe x-rays be done. The patient states that she tested negative forpregnancy last month and has stopped trying to become . Complete lumbar spine series was performed. There are 5 lumbar typevertebral segments which are normal in height and alignment. Discspaces are normally maintained. Pedicles are intact throughout. The re is no evidence of spondylolysis or spondylolisthesis. Note ismade of the presence of a calcific density measuring approximately6-mm located just lateral and superior to the right transverse processo f L5. Differential considerations would include a right ureteralcalculus. Clinical correlation is recommended. IMPRESSIONUnremarkable examination of the lumbar spine. There is a calcificdensity measu ring approximately 6 mm projecting just lateral andsuperior to the transverse process at L5 on the right. Differentialwould certainly include a right ureteral calculus. Clinicalcorrelation is recommen ded and if there is significant clinicalconcern for a ureteral calculus, a noncontrast CT scan should beconsidered although test prior to CT scanning would benecessary. Reported By: LUCIEN PALMA M.D. 80-Dzw-332016:51 Urinalysis, Office (83622) UA - BILIRUBIN Negative (Normal) UA - BLOOD Non Hemolyzed Trace (Normal) UA - GLUCOSE Negative (Normal) UA - KETONES Negative mg/dL (Normal) UA - LEUKOCYTE ESTERASE Trace (Normal) Comments: aw UA - NITRITE Negative (Normal) UA - PH 6.5 (Normal) UA - PROTEIN 30 mg/dL (Normal) UA - SPECIFIC GRAVITY 1.015 (Normal) URINE UROBILINGN MIC TIMED Normal mg/dL (Normal) 44-Nwp-688904:51 Rapid Flu (27584 x 2) INFLUENZA IMMUNOASSY DIRECT OPTICAL OBSERV negative (Normal) Comments: aw 63-Cvz-19796:00 URINE ABRAHAM CULTURE-MIC COL Comments: PATIENT NOT FASTINGClinical Information: SRC: [facility] [id number] COUNT ([id number]) Result 1 MUG (Normal) Comments: Mixed urogenital flora2,000 Colonies/mL Urine Culture,Comprehensive Final report (Normal) 6-Oqe-852928:12 Urinalysis, Office (52769) UA - BILIRUBIN Negative (Normal) UA - BLOOD Hemolyzed Trace (Normal) UA - GLUCOSE Negative (Normal) UA - KETONES Negative mg/dL (Normal) UA - LEUKOCYTE Small (Normal) ESTERASE UA - NITRITE Negative (Normal) UA - PH 7.0 (Normal) UA - PROTEIN 100 mg/dL (Normal) UA - SPECIFIC GRAVITY 1.015 (Normal) URINE UROBILINGN MIC 2 mg/dL (Normal) TIMED hCG,Beta Negative m[iU]/mL Comments: [facility]: [facility] [id number] Subunit,Qual,Serum (Normal) Comments: Negative < 5 Borderline 5 - 20 Positive >20 :21 Upper Respiratory Culture Comments: Clinical Information: SRC:TH PERFORMED BY: [facility] [id number] Result 1 RRF (Normal) Comments: Routine respiratory tavon Upper Respiratory Culture Final report (Normal) 3-Tcu-502868:05 Urinalysis, Office (31027) UA - BILIRUBIN Negative (Normal) UA - BLOOD Negative (Normal) UA - GLUCOSE Negative (Normal) UA - KETONES Negative mg/dL (Normal) UA - LEUKOCYTE ESTERASE Large (Normal) UA - NITRITE Negative (Normal) UA - PH 7.0 (Normal) UA - PROTEIN Negative mg/dL (Normal) UA - SPECIFIC GRAVITY 1.010 (Normal) URINE UROBILINGN MIC TIMED 2 mg/dL (Normal) 70-Nar-200317:13 Urinalysis, Office (31806) UA - BILIRUBIN Negative (Normal) UA - BLOOD Hemolyzed Moderate (Normal) UA - GLUCOSE Negative (Normal) UA - KETONES Negative mg/dL (Normal) UA - LEUKOCYTE ESTERASE Small (Normal) UA - NITRITE Positive (Normal) UA - PH 7.0 (Normal) UA - PROTEIN 30 mg/dL (Normal) UA - SPECIFIC GRAVITY 1.010 (Normal) URINE UROBILINGN MIC TIMED 2 mg/dL (Normal) Plan of Care Name Dates Details Instructions BMI 28.0-28.9,adult : Follow up in 3 months Indication: BMI 28.0-28.9,adult Current nonsmoker (Renamed from Current non-smoker) : Eprescribed prescriptions (G8553) Indication: Current nonsmoker (Renamed from Current non-smoker) Cloudy urine : Eprescribed prescriptions (G8553) Indication: Cloudy urine Urinary frequency : Follow up if no improvement or if symptoms worsen Indication: Urinary frequency Urinary tract infection : Urinary Tract Infection in Women *: bladder infection Indication: Urinary tract infection Current nonsmoker (Renamed from Current non-smoker) : Eprescribed prescriptions (G8553) Indication: Current nonsmoker (Renamed from Current non-smoker) Flank pain : Eprescribed prescriptions (G8553) Indication: Flank pain Vitamin D deficiency, unspecified : Follow up in 1 week Indication: Vitamin D deficiency, unspecified Encounter for gynecological examination with abnormal finding : Pap/Pelvic/Bimanual/Rectal/Breast Exam was done. Indication: Encounter for gynecological examination with abnormal finding Flank pain : Eprescribed prescriptions (G8553) Indication: Flank pain Painful urination : Eprescribed prescriptions (G8553) Indication: Painful urination UTI (urinary tract infection) : Follow up if no improvement or if symptoms worsen Indication: UTI (urinary tract infection) UTI (urinary tract infection) : Eprescribed prescriptions (G8553) Indication: UTI (urinary tract infection) Vomiting : Eprescribed prescriptions (G8553) Indication: Vomiting Iron deficiency : Follow up after lab work completed Indication: Iron deficiency Cloudy urine : follow up for recheck urine 1 week after complete antibiotic Indication: Cloudy urine Vaginal bleeding, abnormal : Eprescribed prescriptions (G8553) Indication: Vaginal bleeding, abnormal Cloudy urine : Eprescribed prescriptions (G8553) Indication: Cloudy urine Right leg swelling : Eprescribed prescriptions (G8553) Indication: Right leg swelling Hypertension, essential, benign : Eprescribed prescriptions (G8553) Indication: Hypertension, essential, benign Nausea : Follow up in 2 weeks Indication: Nausea Nausea : Reviewed Lab Indication: Nausea Hypertension, essential, benign : Reviewed Diagnostic Tests Indication: Hypertension, essential, benign Migraine with aura and without status migrainosus, not intractable : Follow up on Monday with [facility] Indication: Migraine with aura and without status migrainosus, not intractable Encounter for general adult medical examination with abnormal findings : Self breast exam Indication: Encounter for general adult medical examination with abnormal findings Encounter for general adult medical examination with abnormal findings : *Well Female Maintenance (KF) Indication: Encounter for general adult medical examination with abnormal findings Encounter for general adult medical examination with abnormal findings : Pap/Pelvic/Bimanual/Rectal/Breast Exam was done. Indication: Encounter for general adult medical examination with abnormal findings Hypertension : High Blood Pressure (Essential Hypertension) *: blood pressure problems Indication: Hypertension Hypertension : High Blood Pressure (Essential Hypertension) *: cardiovascular health Indication: Hypertension Hypertension, essential, benign : *Atul Inhibitor Side Effects Indication: Hypertension, essential, benign Hypertension, essential, benign : FOLLOW UP IN 7 MONTHS Indication: Hypertension, essential, benign Hypertension, essential, benign : Diet, Exercise, and Wt loss Indication: Hypertension, essential, benign Hypertension, essential, benign : HTN/CAD Red Flags Indication: Hypertension, essential, benign Hypertension, essential, benign : FOLLOW UP IN 2 MONTHS Indication: Hypertension, essential, benign Hypertension, essential, benign : BP MONITORING - SELF Indication: Hypertension, essential, benign Hypertension, essential, benign : Diet, Exercise, and Wt loss Indication: Hypertension, essential, benign Migraine with aura and without status migrainosus, not intractable : FOLLOW UP IN 3 WEEKS Indication: Migraine with aura and without status migrainosus, not intractable Urinary frequency : Water in diet, brief version Indication: Urinary frequency Elevated blood pressure (not hypertension) : BP MONITORING - SELF Indication: Elevated blood pressure (not hypertension) Migraine with aura and without status migrainosus, not intractable : FOLLOW UP IN 1 WEEK Indication: Migraine with aura and without status migrainosus, not intractable Pharyngitis, acute : *URI Treatment Indication: Pharyngitis, acute Pharyngitis, acute : Sore throat: diagnosis and treatment Indication: Pharyngitis, acute Allergic rhinitis due to other allergen : ALLERGY CONTROL Indication: Allergic rhinitis due to other allergen Allergic rhinitis due to other allergen : ALLERGY PROOFING Indication: Allergic rhinitis due to other allergen Allergic rhinitis due to other allergen : URI Symptoms Indication: Allergic rhinitis due to other allergen Low back pain without sciatica, unspecified back pain laterality : Low Back Pain Red Flags Indication: Low back pain without sciatica, unspecified back pain laterality Low back pain without sciatica, unspecified back pain laterality : exercises Indication: Low back pain without sciatica, unspecified back pain laterality Pharyngitis, acute : *URI Treatment Indication: Pharyngitis, acute Pharyngitis, acute : Sore throat: diagnosis and treatment Indication: Pharyngitis, acute Bronchitis : *URI Treatment Indication: Bronchitis Bronchitis : Antibiotic Usage Education - Female Indication: Bronchitis Bronchitis : URI Symptoms Indication: Bronchitis Acute sinusitis : URI Symptoms Indication: Acute sinusitis Acute sinusitis : Antibiotic Usage Education - Female Indication: Acute sinusitis Other chest pain : FOLLOW UP IN 2 WEEKS Indication: Other chest pain Migraine with aura and without status migrainosus, not intractable : FOLLOW UP IN 4 WEEKS Indication: Migraine with aura and without status migrainosus, not intractable Migraine with aura and without status migrainosus, not intractable : Headache Red Flags Indication: Migraine with aura and without status migrainosus, not intractable Planned Observations Metabolic Panel, Comprehensive (68687)Indication: Hypertension On: 30-Cmz-412559:02 Request Iron (81405)Indication: Hypertension, essential, benign On: : Request Ferritin (18543)Indication: Hypertension, essential, benign On: : Request CBC, Platelets & Auto Diff (43203)Indication: Hypertension, essential, benign On: :05 Request Metabolic Panel, Comprehensive (55271)Indication: Hypertension, essential, benign On: 39-Fvx-872436:05 Request HGB A1C (87783)Indication: Hypertension, essential, benign On: 32-Avc-108519:05 Request CALCIFEDIOL (23286)Indication: Vitamin D deficiency, unspecified On: :44 Request FERRITIN (68809)Indication: Anemia On: :44 Request IRON (60217)Indication: Anemia On: :27 Request CBC, Platelets & Auto Diff (43449)Indication: Anemia On: :27 Request HPV, Reflex (07301)Indication: Encounter for gynecological examination with abnormal finding On: 07-Cjw-804198:08 Request URINE ABRAHAM CULTURE-IDENTIFICATN (24914)Indication: Migraine with aura and without status migrainosus, not intractable On: 94-Qwe-038887:18 Request URINE ABRAHAM CULTURE-MIC COL COUNT (64812)Indication: Urinary tract infection, site not specified On: :56 Request URINE ABRAHAM CULTURE-MIC COL COUNT (97035)Indication: Urinary tract infection, site not specified On: 80-Trv-711967:36 Request CALCIFEDIOL (31209)Indication: Vitamin D deficiency, unspecified On: 8-Ojm-062610:42 Request Comments: in appx 2 months URINE ABRAHAM CULTURE-IDENTIFICATN (89080)Indication: Cloudy urine On: :02 Request URINE ABRAHAM CULTURE-MIC COL COUNT (41679)Indication: Cloudy urine On: 79-Zkb-115192:02 Request METABOLIC PANEL, COMPREHENSIVE (41153)Indication: Hypocalcemia On: 69-Vkf-131682:38 Request CALCIFEDIOL (26524)Indication: Vitamin D overdose On: :38 Request CBC, PLATELETS & MANUAL DIFF (89072)Indication: Iron deficiency On: :38 Request FERRITIN (84313)Indication: Iron deficiency On: :38 Request IRON & TOTAL IRON BINDING CAPACITY (03868)Indication: Iron deficiency On: 64-Aln-856144:38 Request URINE ABRAHAM CULTURE-IDENTIFICATN (84652)Indication: Cloudy urine On: 62-Dha-463848:36 Request METABOLIC PANEL, COMPREHENSIVE (58298)Indication: Right leg swelling On: :15 Request CBC, PLATELETS & AUT DIFF (54213)Indication: Right leg swelling On: :14 Request D-Dimer (62740)Indication: Right leg swelling On: :12 Request FERRITIN (43856)Indication: Iron deficiency On: :02 Request IRON & TOTAL IRON BINDING CAPACITY (07074)Indication: Iron deficiency On: : Request LIPID PANEL (43063)Indication: Hypertension, essential, benign On: :02 Request TSH (THYROID STIMULATING HORMONE) (47169)Indication: Hypertension, essential, benign On: : Request HGB A1C (06678)Indication: Hypertension, essential, benign On: : Request MICROALBUMIN: CREATININE RATIO (25726) AND (11052)Indication: Hypertension, essential, benign On: :02 Request VITAMIN B12 AND FOLATES (56081)Indication: Vitamin D deficiency, unspecified On: : Request CALCIFEDIOL (13512)Indication: Vitamin D deficiency, unspecified On: : Request FERRITIN (78018)Indication: Iron deficiency On: 44-Mia-05944:51 Request CALCIFEDIOL (17750)Indication: Iron deficiency On: 30-Gnj-17887:51 Request Aldosterone,24-Hour Urine (36774)Indication: Hypertension, essential, benign On: 12-Yzp-29701:40 Request Food Allergy Profile (85654)Indication: Allergic to food (Renamed from Food allergy) On: 52-Uvs-347754:05 Request CALCIFIDIOL (90037) VIT D 25Indication: Vitamin D deficiency, unspecified On: 32-Zsy-333661:59 Request RENIN (15216)Indication: Hypertension, essential, benign On: 07-Sjj-376224:54 Request Comments: copy to Dr. yulisa Esqueda (82020)Indication: Hypertension, essential, benign On: 33-Fut-686226:52 Request ALDOSTERONE (15732)Indication: Hypertension, essential, benign On: 11-Xox-688078:51 Request METANEPHRINES - URINE (98551)Indication: Hypertension, essential, benign On: :25 Request CATECHOLAMINES TOTAL, URINE (42041)Indication: Hypertension, essential, benign On: :25 Request URINE VMA (89589)Indication: Hypertension, essential, benign On: :25 Request IRON (02210)Indication: Hypertension On: :03 Request Metabolic Panel, Comprehensive (03204)Indication: Hypertension, essential, benign On: :07 Request Thin prep Pap (43649)Indication: Encounter for general adult medical examination with abnormal findings On: 01-Apr-20149:09 Request CALCIFIDIOL (78322) VIT D 25Indication: Hypertension On: :55 Request LIPID PANEL (07958)Indication: Hypertension On: :55 Request TSH (24833)Indication: Hypertension On: :55 Request METANEPHRINES - URINE (03631)Indication: Hypertension On: 49-Bfc-530115:54 Request CATECHOLAMINES TOTAL, URINE (47364)Indication: Hypertension On: 31-Awo-323323:54 Request URINE VMA (41379)Indication: Hypertension On: :54 Request CALCIFEDIOL (49842)Indication: Vitamin D deficiency, unspecified On: 08-Gcs-762866:06 Request METABOLIC PANEL, COMPREHENSIVE (23724)Indication: Hypertension, essential, benign On: 57-Ynx-959898:05 Request LIPID PANEL (95915)Indication: Hyperglyceridemia On: 7-Pgg-510135:07 Request HEMOGLOBIN GLYCLATED (HGB A1C) (31248)Indication: Abnormal laboratory test On: 45-Tjf-029243:31 Request GLUCOSE FASTING (76822)Indication: Abnormal laboratory test On: 82-Gqy-996475:30 Request Metabolic Panel, Basic (49466)Indication: Hypertension, essential, benign On: 63-Dmg-986987:46 Request CALCIFIDIOL (15189) VIT D 25Indication: Vitamin D deficiency, unspecified On: 07-Hme-305877:41 Request Urinalysis, Office (52776)Indication: Elevated blood pressure (not hypertension) On: 12-Fba-686784:01 Request URINALYSIS W/O MICRO (97605)Indication: Elevated blood pressure (not hypertension) On: :59 Request TSH (85886)Indication: Elevated blood pressure (not hypertension) On: :59 Request METABOLIC PANEL, COMPREHENSIVE (41290)Indication: Elevated blood pressure (not hypertension) On: :59 Request CBC WITH MANUAL DIFF (40113)Indication: Elevated blood pressure (not hypertension) On: :59 Request URINE ABRAHAM CULTURE (MIC COL COUNT) (28175)Indication: Urinary tract infection, site not specified On: :30 Request Urine Test, Office (85985)Indication: Low back pain without sciatica, unspecified back pain laterality On: 5-Noz-069948:12 Request ABRAHAM CULTURE-OTHER (54307)Indication: Pharyngitis, acute On: :29 Request URINALYSIS W/O MICRO (08763)Indication: Dysuria On: :36 Request CBC (Auto) (46727)Indication: Other chest pain On: :36 Request Metabolic Panel, Comprehensive (69549)Indication: Other chest pain On: :36 Request Lipid Panel (36719)Indication: Other chest pain On: :36 Request Planned Encounters Medical; 3 Month FU - On: 19-Oct-2018 14:15 [facility] Nellie Zaamn CNP, CNP, Mary E Planned Procedures ELECTROCARDIOGRAM, COMPLETE (ECG) On: 20-Jul-2018 Intent (58471)By: Nellie Zaman CNP Comments: sinus Rhythm rate 73 Nellie ARREDONDO SCREENING DIGITAL TOMOSYNTHESIS OF On: 18-Dec-2017 Intent BREAST (81333)By: Nellie Zaman CNP, CNP, Mary E Solu -Medrol Injection, 125 mg On: 28-Nov-2016 Intent (J2930)By: Nellie Zaman CNP Comments: [id number]-R hip, IMDose-prefilled syringegiven by:ALANNA Bhatia CNP, Mary E ORTHOSTATIC BLOOD PRESSURE ASSESSMENT On: 28-Nov-2016 Intent ([id number])By: Austyn ARREDONDO, Jessica Austyn ARREDONDO, Jessica CT - Abdomen & Pelvis Stone On: 23-Aug-2016 Intent ProtocolBy: Luís Daly MD Ultrasound - PelvisBy: Luís Daly MD On: 23-Aug-2016 Intent Nuclear Stress Test/Stress On: 08-Jun-2016 Intent SPECT/TreadmillBy: Luís Daly MD Venous Doppler - RightBy: Addy TROY, On: 08-Jun-2016 Intent Luís US LOWER LEG ([id number])By: Addy TROY, On: 08-Jun-2016 Intent Luís Comments: right leg US (not vascular), not soft tissue Radiology - Tib-Fib - RightBy: Addy On: 08-Jun-2016 Intent Luís TROY Ultrasound - PelvisBy: Marcela TROY, On: 14-Dec-2015 Intent Kait Bains Renal Artery DopplerBy: Austyn ARREDONDO, On: 04-Feb-2015 Intent Jessica Austyn ARREDONDO, Jessica Ultrasound - PelvisBy: Marcela TROY, On: 01-Apr-2014 Intent Kait Bains Echo CompleteBy: Kait Medrano MD On: 01-Apr-2014 Intent MAMMOGRAM, SCREENING, BOTH BREASTS On: 01-Apr-2014 Intent ([id number])By: Kait Medrano MD MAMMOGRAM, SCREENING, BOTH BREASTS On: 03-Jan-2014 Intent ([id number])By: Kait Medrano MD Renal Artery DopplerBy: Marcela TROY, On: 29-Aug-2013 Intent Kait Bains Eprescribed prescriptions ([id number])By: On: 29-Aug-2013 Intent Kait Medrano MD EKG ([id number])By: SHANDA Alvarez On: 29-Aug-2013 Intent MAMMOGRAM, SCREENING, BOTH BREASTS On: 28-Dec-2012 Intent ([id number])By: Kait Medrano MD Eprescribed prescriptions ([id number])By: On: 28-Dec-2012 Intent Long Tati LANDRY L EKG ([id number])By: Kait Medrano MD On: 02-Mar-2012 Intent Comments: see scanned document of test done to see results reviewed today with patient MAMMOGRAM, SCREENING, BOTH BREASTS On: 02-Mar-2012 Intent ([id number])By: Kait Medrano MD Eprescribed prescriptions ([id number])By: On: 02-Mar-2012 Intent Navya Schultz LPN Ultrasound - RenalBy: Kait Medrano MD On: 26-Jan-2011 Intent Herson Toradol Injection, 30 mg ([id number])By: On: 02-Jun-2010 Intent Shanel Reddy DO Comments: Lot #:[id number] date:mount given:30mgRoute: IMSite given:left deltGiven by: ELAINE Mora INFUSION, NORMAL SALINE SOLUTION , On: 24-Jul-2008 Intent 1000 CC (Special Coverage Instructions Comments: IV Therapy [id number], 1inchSite: left a/cTolerated: Daquan Apply. See MCM: 2049) ([id number])By: Nellie Zaman CNP, CNP, Mary E HYDRATION IV INFUSION, INIT ([id number])By: On: 24-Jul-2008 Intent Nellie Zaman CNP, CNP, Mary E Phenergan Injection, up to 50 mg On: 24-Jul-2008 Intent ([id number])By: Nellie Zaman CNP Comments: 25mg IMAmt: 1mlLot: [id number]:07/2010 Route: IMSite: left hipTolerated: wellGiven By: FRANTZ Pettit CNP, Mary E Echo CompleteBy: Lawanda Pizarro DO On: 21-Jul-2008 Intent EKG ([id number])By: Lawanda Pizarro DO On: 21-Jul-2008 Intent Comments: ekg- sinus with bordderline t wave iversion anterior with normal axis SPECIMEN HANDLING/TRANSPORT ([id number])By: On: 07-Jan-2008 Intent Kait Medrano MD Radiology - Lumbar SpineBy: Marcela On: 07-Jan-2008 Intent Kait TROY SPECIMEN HNDLNG/TRNSPRT, OFFC > LAB On: 31-Oct-2007 Intent ([id number])By: Shanel Reddy DO Spirometry ([id number])By: SHANDA Alvarez On: 03-Aug-2007 Intent Inhaler Demo ([id number])By: Lawanda Pizarro DO On: 22-May-2007 Intent A Spirometry ([id number])By: Lawanda Pizarro DO On: 22-May-2007 Intent A Comments: good effort /curve-significnt restriction ELECTROCARDIOGRAM, COMPLETE (ECG) On: 10-Apr-2007 Intent ([id number])By: Kait Medrano MD Pulse Oximetry ([id number])By: Antonio On: 10-Apr-[address] - Brain/HeadBy: Kait Medrano MD On: 15-Sep-2006 Intent Planned Medications INJECTION, METHYLPREDNISOLONE SODIUM SUCCINATE, UP TO 125 MG Ordered: 28-Nov-2016 Pending CiNellie de leon CNP, CNP, Nellie Gupta Instructions Name Dates Details Current nonsmoker (Renamed from Current non-smoker) : How to access health information online Indication: Current nonsmoker (Renamed from Current non-smoker) Current nonsmoker (Renamed from Current non-smoker) : How to access health information online - Detail Indication: Current nonsmoker (Renamed from Current non-smoker) Current nonsmoker (Renamed from Current non-smoker) : Patient Instructions Indication: Current nonsmoker (Renamed from Current non-smoker) Cloudy urine : How to access health information online Indication: Cloudy urine Cloudy urine : How to access health information online - Detail Indication: Cloudy urine Cloudy urine : Patient Instructions Indication: Cloudy urine Current nonsmoker (Renamed from Current non-smoker) : How to access health information online Indication: Current nonsmoker (Renamed from Current non-smoker) Current nonsmoker (Renamed from Current non-smoker) : How to access health information online - Detail Indication: Current nonsmoker (Renamed from Current non-smoker) Cloudy urine : Patient Instructions Indication: Cloudy urine Flank pain : How to access health information online Indication: Flank pain Flank pain : How to access health information online - Detail Indication: Flank pain Current nonsmoker (Renamed from Current non-smoker) : Patient Instructions Indication: Current nonsmoker (Renamed from Current non-smoker) Flank pain : How to access health information online Indication: Flank pain Flank pain : How to access health information online - Detail Indication: Flank pain Flank pain : Patient Instructions Indication: Flank pain Painful urination : How to access health information online Indication: Painful urination Painful urination : How to access health information online - Detail Indication: Painful urination Painful urination : Patient Instructions Indication: Painful urination UTI (urinary tract infection) : How to access health information online Indication: UTI (urinary tract infection) UTI (urinary tract infection) : How to access health information online - Detail Indication: UTI (urinary tract infection) UTI (urinary tract infection) : Patient Instructions Indication: UTI (urinary tract infection) Vomiting : How to access health information online Indication: Vomiting Vomiting : How to access health information online - Detail Indication: Vomiting Vomiting : Patient Instructions Indication: Vomiting Vaginal bleeding, abnormal : How to access health information online Indication: Vaginal bleeding, abnormal Vaginal bleeding, abnormal : How to access health information online - Detail Indication: Vaginal bleeding, abnormal Vaginal bleeding, abnormal : Patient Instructions Indication: Vaginal bleeding, abnormal Cloudy urine : How to access health information online Indication: Cloudy urine Cloudy urine : How to access health information online - Detail Indication: Cloudy urine Cloudy urine : Patient Instructions Indication: Cloudy urine Right leg swelling : How to access health information online Indication: Right leg swelling Right leg swelling : How to access health information online - Detail Indication: Right leg swelling Right leg swelling : Patient Instructions Indication: Right leg swelling Dysmenorrhea : How to access health information online Indication: Dysmenorrhea Dysmenorrhea : How to access health information online - Detail Indication: Dysmenorrhea Dysmenorrhea : Patient Instructions Indication: Dysmenorrhea Menopausal symptom : How to access health information online Indication: Menopausal symptom Menopausal symptom : How to access health information online - Detail Indication: Menopausal symptom Menopausal symptom : Patient Instructions Indication: Menopausal symptom Hypertension, essential, benign : How to access health information online Indication: Hypertension, essential, benign Hypertension, essential, benign : How to access health information online - Detail Indication: Hypertension, essential, benign Hypertension, essential, benign : Patient Instructions Indication: Hypertension, essential, benign Hypertension : Patient Instructions Indication: Hypertension Nausea : Patient Instructions Indication: Nausea Migraine with aura and without status migrainosus, not intractable : Patient Instructions Indication: Migraine with aura and without status migrainosus, not intractable Encounter for general adult medical examination with abnormal findings : Patient Instructions Indication: Encounter for general adult medical examination with abnormal findings Hypertension : Patient Instructions Indication: Hypertension Hypertension : Patient Instructions Indication: Hypertension Hypertension, essential, benign : Patient Instructions Indication: Hypertension, essential, benign Low back pain without sciatica, unspecified back pain laterality : Patient Instructions Indication: Low back pain without sciatica, unspecified back pain laterality Encounters Office Visit On: 20-Jul-2018 13:09 Encounter Reason: Follow up tests - Diagnostic tests include other (labs). Date: (07/16/18)., [ADDITIONAL REASON] Hypertension - Note for Hypertension: BP in office 192/122, has not taken BP med for for a couple of days Encounter Diagnosis: End: 20-Jul-2018 14:37 Current nonsmoker (Renamed from Current non-smoker), BMI 28.0-28.9,adult, Iron deficiency, Hypertension (401.9) [facility] Annotation/Addendum On: 10-Jul-2018 16:04 Encounter Diagnosis: Hypertension, essential, benign End: 10-Jul-2018 16:06 [facility] Annotation/Addendum On: 26-Jan-2018 14:21 Encounter Diagnosis: Cloudy urine End: 26-Jan-2018 14:24 [facility] Office Visit On: 26-Jan-2018 8:35 Encounter Reason: Follow up tests - Diagnostic tests include other (labs). Note for Discuss procedure results: Was told by Dr Reyes he will watch fibroid or remove uterus and to keep taking iron. To make sure monitor CBC., End: 26-Jan-2018 11:12 [ADDITIONAL REASON] UTI - Note for Infection: still with UTI symptoms has been treated Encounter Diagnosis: Cloudy urine, Current nonsmoker (Renamed from Current non-smoker), Vitamin D deficiency, unspecified, BMI 27.0-27.9,adult, Hypertension, essential, benign, Anemia [facility] Annotation/Addendum On: 22-Jan-2018 12:27 Encounter Diagnosis: Unspecified Diagnosis End: 22-Jan-2018 12:29 [facility] Office Visit On: 11-Jan-2018 13:44 Encounter Reason: Urinary problems - The urinary problem is characterized as frequency, urgency and painful urination. Past medical history : recurrent urinary tract infection. Note for Urinary problems: Pt was seen ab End: 11-Jan-2018 14:19 out 2.5 weeks ago for UTI. Still has urine frequency, urgency, pressure, pain with urination, cloudy urine and odor. No fever or chills, back pain, blood in urine. Cipro and macrobid do not work. Has h x of recurrent UTI's and has seen [facility] about 2 years ago.Encounter Diagnosis: BMI 27.0-27.9,adult, Current nonsmoker (Renamed from Current non-smoker), Cloudy urine, Urinary tract infection, Urinary frequency, Urgency of urination, Dysuria [facility] Annotation/Addendum On: 25-Dec-2017 12:09 Encounter Diagnosis: Unspecified Diagnosis End: 25-Dec-2017 12:12 [facility] Office Visit On: 22-Dec-2017 14:35 Encounter Reason: Follow up tests - Diagnostic tests include other (lab)., [ADDITIONAL REASON] Burning on urination - Note for Burning on urination: some dysuria and uncomfortableness Encounter Diagnosis: BMI 27.0-27.9,adult, Flank pain, End: 22-Dec-2017 15:21 Current nonsmoker (Renamed from Current non-smoker), Anemia, Urinary tract infection [facility] Office Visit On: 18-Dec-2017 14:32 Encounter Reason: Well Women Exam - The patient feels well with minor complaints (headaches) and has decreased energy level. Pap smear: date of last pap: (2015). Contraceptive history: The patient is not using any method End: 18-Dec-2017 15:19 of contraception at this time. Patient does not exercise. The patient's libido is normal. The patient reports that she does not perform monthly breast self exam. Menstruation: Last menstrual period date: (12/07/17)., [ADDITIONAL REASON] Flank Pain - This condition occurred without any known injury. The injury involved the left flank and right flank. Symptoms include back pain. There is no radiation. Note for Flank pain: Still with flank pain Encounter Diagnosis: Hypertension, essential, benign, Flank pain, BMI 27.0-27.9,adult, Encounter for gynecological examination with abnormal finding, Encounter for screening mammogram for breast cancer (Renamed from Encounter for screening mammogram for malignant neoplasm of breast), Iron deficiency, Vitamin D deficiency, unspecified [facility] Phone Encounter On: 27-Nov-2017 11:19 Encounter Diagnosis: Dysuria End: 27-Nov-2017 11:22 [facility] Office Visit On: 22-Nov-2017 10:57 Encounter Reason: Urinary problems - The urinary problems have been occurring in a persistent pattern. The course has been increasing. The urinary problems are described as moderate. The urinary problem is characterized End: 23-Nov-2017 18:36 as frequency, urgency and painful urination. Past medical history : recurrent urinary tract infection. Note for Urinary problems: got better but back again doing alot of caffeine not a lot of water no flank pain or fever- no preg concerns no controlEncounter Diagnosis: Current nonsmoker (Renamed from Current non-smoker), BMI 27.0-27.9,adult, Painful urination, Hypertension, essential, benign, Urinary tract infection [facility] Office Visit On: 18-Oct-2017 11:32 Encounter Reason: Urinary problems - The onset of the urinary problems has been acute and they have been occurring for 4 days. The urinary problem is characterized as frequency and painful urination. Note for Urinary pr End: 18-Oct-2017 11:59 oblems: Worried about UTI having urinary frequenctyEncounter Diagnosis: UTI (urinary tract infection), BMI 27.0-27.9,adult, Current nonsmoker (Renamed from Current non-smoker), Hypertension (401.9) [facility] Office Visit On: 28-Nov-2016 10:08 Encounter Reason: HeadacheEncounter Diagnosis: Migraine with aura and without status migrainosus, not intractable, Vomiting End: 28-Nov-2016 13:30 [facility] Phone Encounter On: 15-Sep-2016 9:52 Encounter Diagnosis: Urinary tract infection, site not specified (599.0) End: 15-Sep-2016 9:57 [facility] Phone Encounter On: 13-Sep-2016 14:30 Encounter Diagnosis: Urinary tract infection, site not specified (599.0) End: 13-Sep-2016 14:37 [facility] Nurse Visit On: 12-Sep-2016 11:27 Encounter Diagnosis: Urinary tract infection, site not specified (599.0) End: 12-Sep-2016 14:18 [facility] Phone Encounter On: 31-Aug-2016 9:35 Encounter Diagnosis: Cold sore End: 31-Aug-2016 9:38 [facility] Phone Encounter On: 30-Aug-2016 1:44 Encounter Diagnosis: Vitamin D deficiency, unspecified End: 30-Aug-2016 10:42 [facility] Office Visit On: 23-Aug-2016 10:55 Encounter Reason: Intermenstrual BleedingEncounter Diagnosis: Vaginal bleeding, abnormal, Cloudy urine, Atypical squamous cells of undetermined significance (ASCUS) on Papanicolaou smear of cervix, Iron deficiency, Hypertension, essential, benign, End: 24-Aug-2016 17:18 Microalbuminuria, Menopausal symptom, Hyperglyceridemia, Vitamin D overdose [facility] Office Visit On: 21-Jun-2016 10:11 Encounter Reason: Follow up tests - Date: (May 2016).Encounter Diagnosis: Cloudy urine, Iron deficiency, Vitamin D overdose, Hypocalcemia, Right leg swelling, Hypertension, essential, benign, Heart murmur, Microalbuminuria End: 21-Jun-2016 17:05 [facility] Office Visit On: 08-Jun-2016 11:04 Encounter Reason: Follow up for chronic medical issues - The patient feels well with no complaints, has good energy level and is sleeping well. Patient has been compliant with instructions. Current medication use: no yonny End: 08-Jun-2016 16:26 e effects, compliant with dosing regimen and considered effective by patient. Patient sleeps 6 hours per night. Impact of disease: emotional impact-mild. Nutrition: balanced diet and supplemental vitami ns. The medical issues the patient is following up for include cardiac issues, high blood pressure, high cholesterol and other (migraines, vitamin d def ).Encounter Diagnosis: Right leg swelling, Vitamin D deficiency, unspecified, Hypertension, essential, benign, Anxiety, Iron deficiency, Chest pain (786.50) [facility] Office Visit On: 12-Jan-2016 8:17 Encounter Reason: Follow up, Diagnostic Procedure Results - Diagnostic tests include other (labs ). Date: (12-14-15 ).Encounter Diagnosis: Dysmenorrhea, Current nonsmoker (Renamed from Current non-smoker), Menopausal symptom, Iron deficiency, End: 12-Jan-2016 8:53 Vitamin D deficiency, unspecified [facility] Office Visit On: 14-Dec-2015 9:16 Encounter Reason: Well Women Exam - The patient feels well with minor complaints and has decreased energy level. Pap smear: date of last pap: (04-01-14 ). Contraceptive history: The patient is not using any method of contr End: 14-Dec-2015 9:47 aception at this time. Patient does not exercise. The patient's libido is normal. The patient reports that she does not perform monthly breast self exam. Menstruation: Last menstrual period date: (). Note for Well Women Exam: not want pap today bc on menses, had 2013 and HPV was negative Encounter Diagnosis: Menopausal symptom, Current nonsmoker (Renamed from Current non-smoker), Vitamin D deficiency, unspecified, Hypertension, essential, benign, Infertility, female, of unspecified origin (628.9), Hypocalcemia, Encounter for general adult medical examination with abnormal findings [facility] Phone Encounter On: 25-Feb-2015 8:39 Encounter Diagnosis: HYPERTENSION, BENIGN ESSENTIAL (401.1) End: 25-Feb-2015 8:40 [facility] Office Visit On: 17-Feb-2015 13:27 Encounter Reason: Follow up acute care visit - The patient improving.Encounter Diagnosis: HYPERTENSION, BENIGN ESSENTIAL (401.1), Anemia, Migraine, Anxiety (300.00), DEFICIENCY, VITAMIN D NOS (268.9), Allergic to food (Renamed from Food allergy) End: 17-Feb-2015 14:07 [facility] Office Visit On: 04-Feb-2015 14:53 Encounter Reason: high blood pressure - The patient has experienced high blood pressure for 2 years. blood pressure range : (134/116 todayat 845 this morning 150/104yesterday 162/100).Encounter Diagnosis: HYPERTENSION, BENIGN ESSENTIAL (401.1), End: 04-Feb-2015 15:49 Migraine, Anemia [facility] Office Visit On: 03-Feb-2015 13:22 Encounter Reason: Follow up Hypertension - There has been no associated anxiety or excessive caffeine intake. blood pressure range : (164/120, ??160/108, ??139/97, ??143/90, ?161/96).Encounter Diagnosis: Hypertension (401.9), Migraine End: 03-Feb-2015 14:07 [facility] Annotation/Addendum On: 21-Jan-2015 16:14 Encounter Diagnosis: Migraine End: 21-Jan-2015 16:17 [facility] Office Visit On: 19-Jan-2015 8:15 Encounter Reason: Follow up acute care visit - The patient feeling better since last seen. Patient has been compliant with instructions. The medical issues the patient is following up for include All identified problems End: 21-Jan-2015 13:55 below and other (migraine from TCM on monday ).Encounter Diagnosis: Nausea, HYPERTENSION, BENIGN ESSENTIAL (401.1) [facility] Office Visit On: 16-Jan-2015 8:14 Encounter Reason: Transition into care - The patient is transitioning into care from a hospital and a summary of care was reviewed ., [ADDITIONAL REASON] Follow up hospital - Reason for ER visit: note: (Migraine Garcia, Hypertensive crisi End: 16-Jan-2015 9:09 s). The patient feels well with minor complaints, has decreased energy level and is sleeping well. Patient has been compliant with instructions. Current medication use: no side effects and compliant wit h dosing regimen. Impact of disease: no overall impact. Encounter Diagnosis: HYPERTENSION, BENIGN ESSENTIAL (401.1), Urinary tract infection, site not specified (599.0), Anemia, Headache,Migraine (346.00) [facility] Annotation/Addendum On: 09-Jul-2014 13:22 Encounter Diagnosis: Unspecified Diagnosis End: 09-Jul-2014 16:35 [facility] Phone Encounter On: 04-Apr-2014 15:06 Encounter Diagnosis: HYPERTENSION, BENIGN ESSENTIAL (401.1) End: 04-Apr-2014 15:08 [facility] Office Visit On: 01-Apr-2014 8:42 Encounter Reason: Well Women Exam - The patient has good energy level and is sleeping well. Pap smear: date of last pap: (Many years since last pap). Contraceptive history: The patient is not using any method of contrace End: 01-Apr-2014 9:25 ption at this time. Patient does not exercise. The patient's libido is normal. The patient reports that she does not perform monthly breast self exam. The patient denies the use of oral contraceptives o r hormone replacement therapy. Menstruation: Last menstrual period date: (around March 23).Encounter Diagnosis: Well Woman Exam (V72.31) (Pap,Mammo,Routine Female) (Renamed from Well Woman V72.31 (p,m)), SCREENING FOR HUMAN PAPILLOMAVIRUS (HPV) (V73.81), HYPERTENSION, BENIGN ESSENTIAL (401.1), Infertility, female, of unspecified origin (628.9), Dysmenorrhea, Heart murmur [facility] Office Visit On: 03-Jan-2014 8:35 Encounter Reason: Follow up for chronic medical issues - The patient feels well with no complaints, has good energy level and is sleeping well. Patient has been compliant with instructions. Current medication use: no yonny End: 03-Jan-2014 8:58 e effects, compliant with dosing regimen and considered effective by patient. Patient sleeps 6 hours per night. Impact of disease: emotional impact-mild. Nutrition: balanced diet and supplemental vitami ns. The medical issues the patient is following up for include cardiac issues, high blood pressure, high cholesterol and other (migraines, vitamin d def ).Encounter Diagnosis: Hypertriglycerides (272.1), HYPERTENSION, BENIGN ESSENTIAL (401.1), Parasthesia (782.0), Abnormal EKG(794.31), Headache,Migraine (346.00), DEFICIENCY, VITAMIN D NOS (268.9), Lumbago (724.2), Anxiety (300.00), Hypokalemia (276.8), WWV V73.21 [facility] Office Visit On: 04-Oct-2013 9:34 Encounter Reason: Follow up, Diagnostic Procedure Results - Diagnostic tests include other (labs ). Date: (09-12-13). Follow up visit with no current symptoms.Encounter Diagnosis: Hypertension (401.9), Chest pain (786.50) End: 04-Oct-2013 10:39 [facility] Office Visit On: 29-Aug-2013 11:16 Encounter Diagnosis: Hypertension (401.9), Leg weakness (729.89), Chest pain (786.50) End: 29-Aug-2013 12:36 [facility] Phone Encounter On: 29-May-2013 13:05 Encounter Diagnosis: HYPERTENSION, BENIGN ESSENTIAL (401.1), DEFICIENCY, VITAMIN D NOS (268.9) End: 29-May-2013 13:34 [facility] Office Visit On: 28-Dec-2012 10:44 Encounter Reason: Follow up tests - Date: (sugars).Encounter Diagnosis: DEFICIENCY, VITAMIN D NOS (268.9), Hypertriglycerides (272.1), Headache,Migraine (346.00), Anxiety (300.00), HYPERTENSION, BENIGN ESSENTIAL (401.1), wwv V73.21 End: 28-Dec-2012 11:09 [facility] Phone Encounter On: 13-Dec-2012 15:15 Encounter Diagnosis: Abnormal laboratory test (796.4) End: 13-Dec-2012 15:35 [facility] Office Visit On: 23-Jul-2012 11:53 Encounter Diagnosis: Lumbago (724.2) End: 23-Jul-2012 12:22 [facility] Office Visit On: 27-Mar-2012 10:20 Encounter Diagnosis: DEFICIENCY, VITAMIN D NOS (268.9), HYPERTENSION, BENIGN ESSENTIAL (401.1) End: 27-Mar-2012 10:49 [facility] Phone Encounter On: 13-Mar-2012 8:27 Encounter Diagnosis: DEFICIENCY, VITAMIN D NOS (268.9) End: 13-Mar-2012 8:29 [facility] Office Visit On: 02-Mar-2012 8:16 Encounter Reason: Follow up for chronic medical issues - The patient feels well with minor complaints, has decreased energy level and is sleeping poorly. Patient has been compliant with instructions. Current medication u End: 02-Mar-2012 9:05 se: no side effects and compliant with dosing regimen. Patient sleeps 6 hours per night. Nutrition: inappropriate diet and no supplemental vitamins & iron. The medical issues the patient is followin g up for include All identified problems below, depression and high blood pressure.Encounter Diagnosis: HYPERTENSION, BENIGN ESSENTIAL (401.1), Headache,Migraine (346.00), Anxiety (300.00), Urinary tract infection, site not specified (599.0), Chest pain,unspecified (786.59), WWV V73.21 [facility] Phone Encounter On: 09-Feb-2012 15:04 Encounter Diagnosis: HYPERTENSION, BENIGN ESSENTIAL (401.1) End: 09-Feb-2012 15:06 [facility] Office Visit On: 26-Jan-2011 8:21 Encounter Reason: Follow up ER - Reason for hospitalization note: (UTI). Patient has been non-compliant with instructions. Current medication use: experiencing side effects. The patient feels well with minor complaints a End: 26-Jan-2011 8:53 nd is sleeping well. Patient sleeps 6 hours per night. Impact of disease: no overall impact. Nutrition: inappropriate diet.Encounter Diagnosis: Urinary tract infection, site not specified (599.0), Hypokalemia (276.8) [facility] Office Visit On: 02-Jun-2010 15:48 Encounter Reason: Migraine headache - The onset of the headache has been sudden and they have been occurring in a persistent pattern for 3 days. The course has been constant. The headache is described as severe. Location End: 02-Jun-2010 16:46 of headaches have been frontal (rt side) and occipital. Encounter Diagnosis: Headache,Migraine (346.00) [facility] Office Visit On: 27-Jan-2010 8:51 Encounter Reason: Follow up Hypertension - blood pressure range : (157/92 then in oct 112/64). Encounter Diagnosis: HYPERTENSION, BENIGN ESSENTIAL (401.1), Headache,Migraine (346.00) End: 27-Jan-2010 9:13 [facility] Office Visit On: 11-Nov-2009 13:45 Encounter Reason: Follow up Meds - The patient feels well with minor complaints ,has good energy level and is sleeping well. Patient has been compliant with instructions. Current medication use: no side effects and compl End: 11-Nov-2009 14:21 iant with dosing regimen. Nutrition: balanced diet. , [ADDITIONAL REASON] Follow up Hypertension - blood pressure range : (150 to 130/92). Encounter Diagnosis: HYPERTENSION, BENIGN ESSENTIAL (401.1), Urinary frequency (788.41), SYMPTOMS INVOLVING URINARY SYSTEM; DYSURIA (788.1) [facility] Office Visit On: 21-Oct-2009 13:16 Encounter Reason: Follow up for chronic medical issues - The patient does not feel well (H/a all the time so she is wondering if it is her bp) ,has decreased energy level and is sleeping poorly. Patient has been complian End: 21-Oct-2009 14:18 t with instructions. Current medication use: no side effects and compliant with dosing regimen. Patient sleeps 6 hours per night. Nutrition: balanced diet and no supplemental vitamins & iron. The me dical issues the patient is following up for include All identified problems below and high blood pressure. Encounter Diagnosis: Headache, Analgesic Rebound (784.0), Headache,Migraine (346.00), Elevated Blood Pressure(796.2), Urinary frequency (788.41) [facility] Historical Summary On: 06-May-2009 13:39 [facility] End: 06-May-2009 13:40 Office Visit On: 20-Aug-2008 14:11 Encounter Reason: Follow up, Diagnostic Procedure Results - Diagnostic tests include CT scan and ECHO. Date: (07/21/08----07/23/08). Current symptoms include other (dizzy, lightheaded, stress, anxiety). There is no family End: 20-Aug-2008 14:48 history of breast cancer ,cardiovascular disease ,cystic fibrosis ,Down's syndrome ,mental retardation or myocardial infarction before age 55. Encounter Diagnosis: Abnormal EKG(794.31), Nausea/Vomiting (787.01), Elevated Blood Pressure(796.2), Urinary tract infection, site not specified (599.0), Dizziness (780.4), Anxiety (300.00), infertility [facility] Office Visit On: 24-Jul-2008 13:34 Encounter Reason: Headache/ - The onset of the headache/ has been acute (7am yesterday) and has been occurring in a persistent pattern for 1 days. The course has been constant and increasing in severity. The headache/ is End: 24-Jul-2008 16:54 characterized as pounding and severe. The headache/ is experienced any time of the day (no diurnal variation). The headache/ is described as being located in the entire head. The symptoms have been ass ociated with anxiety ,migraine in the past ,nausea ,vertigo and vomiting (2 times today), while the symptoms have not been associated with ear pain ,eye congestion or eye pain. Encounter Diagnosis: Nausea/Vomiting (787.01), Elevated Blood Pressure(796.2), Headache,Migraine (346.00) [facility] Office Visit On: 21-Jul-2008 14:29 Encounter Reason: Sore throat - The onset of the sore throat has been sudden and has been occurring in a persistent pattern for 5 days. The course has been worsening. The symptoms have been associated with change in voic End: 21-Jul-2008 23:23 e ,chills ,cough ,ear pain ,post-nasal drip ,purulent sputum and runny nose, while the symptoms have not been associated with difficulty in swallowing ,fever ,non-purulent sputum ,recent contact with a person with sore throat or sinus pain. , [ADDITIONAL REASON] Cough - The onset of the cough has been sudden (last monday or ). The cough is characterized as productive of mucopurulent sputum. The amount of sputum produced is scanty . The cough occurs all the time. The symptoms are aggravated by supine posture, but not by meals. The symptoms have been associated with headache (lightheaded) and sore throat, while the symptoms have n ot been associated with fever ,hoarseness ,runny nose or wheezing. the color of the sputum is greenish and yellowish. Encounter Diagnosis: ACUTE PHARYNGITIS (462.), Elevated Blood Pressure(796.2), Abnormal EKG(794.31) [facility] Office Visit On: 10-Jun-2008 13:46 Encounter Reason: Follow up for chronic medical issues - The patient feels well with minor complaints (urine has bad smell to it.) ,has good energy level and is sleeping poorly. Patient has been compliant with instructio End: 10-Jun-2008 14:47 ns. Current medication use: no side effects. Patient sleeps 5 hours per night. Nutrition: inappropriate diet and no supplemental vitamins & iron. , [ADDITIONAL REASON] Follow up, Diagnostic Procedure Results - Diagnostic tests include CT scan (3.13 .08 on face sheet. ) and X-Ray (spine 3.10.08 on face sheet. ). Encounter Diagnosis: Urinary tract infection, site not specified (599.0), Headache,Migraine (346.00), Lumbago (724.2) [facility] Office Visit On: 07-Jan-2008 14:22 Encounter Reason: Back pain - The onset of the pain has been acute and has been occurring in a persistent pattern for 2 days. The course has been increasing. The pain is characterized as a dull ache and burning. The pain End: 07-Jan-2008 14:53 is described as being located in the upper back and lower back. The pain does not radiate. The symptoms have no aggravating factors. Note for Back pain: now to right side and up back and hurt to bend . feel chills and hot. not beeen sick. felt nauseaEncounter Diagnosis: Lumbago (724.2), Urinary tract infection, site not specified (599.0) [facility] Office Visit On: 04-Dec-2007 10:08 Encounter Reason: Low Back Pain - The onset of the low back pain has been acute and has been occurring in a persistent pattern for 3 days. The course has been gradually worsening. The low back pain is described as a mild End: 04-Dec-2007 10:31 to moderate dull aching. The low back pain is described as being located in the lower back. The back pain does not radiate The pain has not been relieved by anything. Note for Low Back Pain: start 1 week ago. hurt to bend and twist. play with son and lift himEncounter Diagnosis: Lumbago (724.2), Allergic rhinitis due to other allergen (477.8) [facility] Office Visit On: 31-Oct-2007 13:02 Encounter Reason: Sore throat - The onset of the sore throat has been sudden and has been occurring in a persistent pattern for 1 weeks. The course has been unchanged. The symptoms have been associated with foreign body End: 31-Oct-2007 13:38 sensation in throat ,change in voice ,cough and difficulty in swallowing, while the symptoms have not been associated with ear pain or fever. Encounter Diagnosis: BRONCHITIS, NOT SPECIFIED ACUTE OR CHRONIC (490.), ACUTE PHARYNGITIS (462.) [facility] Office Visit On: 03-Aug-2007 13:59 Encounter Reason: UTI - The urinary symptoms are described as frequency and burning. The symptoms have been occurring for 4 days and have been constant. Note for UTI: lungs better able to do spirometry. took the allerg End: 03-Aug-2007 14:44 y med until 06-05 then signs and symptoms return loose voice. no cough wheezeEncounter Diagnosis: SYMPTOMS INVOLVING URINARY SYSTEM; DYSURIA (788.1), Wheezing (786.07), Allergic rhinitis (477.9) [facility] Office Visit On: 22-May-2007 15:48 Encounter Reason: Cough - The onset of the cough has been 10 days ago. The cough is characterized as productive of mucoid sputum (white). The amount of sputum produced is scanty. The cough occurs all the time. The sympto End: 22-May-2007 17:19 ms are aggravated by supine posture. The symptoms have been associated with fever (chills) ,hoarseness and sore throat (thinks from coughing), while the symptoms have not been associated with dysphagia ,dyspnea ,edema ,foreign body aspiration ,headache ,hemoptysis ,long history of smoking ,night sweats ,runny nose ,weight loss ,wheezing or heartburn. the color of the sputum is clear (white). Encounter Diagnosis: Acute sinusitis (461.9), Cough (786.2), Wheezing (786.07) [facility] Office Visit On: 10-Apr-2007 11:09 Encounter Reason: Physical female exam - Last seen between 6-12 months ago. General health: feels well with minor complaints ,has good energy level and is sleeping well. The patient's appetite is normal. Nutrition: hillary End: 10-Apr-2007 11:38 l/adequate. Exercises 1 days per week. Sleeps on average 6 hours per night. Normal bowel and bladder habits. Safety measures include appropriate use of safety belts and home smoke detectors. Current emo tional problems include anxiety. screening, Pap smear (2004). Encounter Diagnosis: SYMPTOMS INVOLVING URINARY SYSTEM; DYSURIA (788.1), SYMPTOMS INVOLVING RESPIRATORY SYSTEM AND OTHER CHEST SYMPTOMS; SHORTNESS OF BREATH (786.05), Headache,Migraine (346.00), Chest pain,unspecified (786.59), Palpitations (785.1), Parasthesia (782.0), Abdominal Pain,LLQ (789.04) [facility] Office Visit On: 15-Sep-2006 10:54 Encounter Reason: Migraine headache - The onset of the headache has been sudden and they have been occurring in a persistent pattern for 1 days (sometimes it can last 3 days ). The course has been recurrent. The headache End: 18-Sep-2006 21:31 is described as moderate (feels like somebody is poking me with a hammer ). Location of headaches have been frontal and occipital. Note for Migraine headache: started tuesdau, one left side constan t throbbing, 9/10, not worse of life able to work, no nausea with it this time but other time yes, last 2-3 days, exedrin migraine--help but advil tylenol not help, no sinus issues, have monthly, not wi th menses, 1-2 a month last week bad one last longer, no neuro signs and symptoms except tingle in left hand on and off not related to garcia , vision exam 1 year ago, positive aura see lights starsEncounter Diagnosis: Headache,Migraine (346.00) [facility] Historical Summary On: 11-Jul-2006 13:26 [facility] End: 11-Jul-2006 13:41 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
--- OUTSIDE RECORDS SUMMARY | 2018-11-26 21:44 | XMS RPT_ITS ---
:1970 Author Organization OHIP Care Team Providers Name Role Phone Arley Ayala Attending Unavailable Arley Ayala Primary Care Unavailable Nellie Zaman Attending Unavailable Nellie Zaman Referring Unavailable Nellie Zaman Primary Care Unavailable Nellie Zaman Attending Unavailable Nellie Zaman Primary Care Unavailable Nellie Zaman Referring Unavailable [facility], Manjinder [facility] Employee Attending Unavailable Nellie Zaman Attending Unavailable Nellie Zaman Referring Unavailable Nellie Zaman Primary Care Unavailable Nellie Zaman Attending Unavailable Lucy Arlye Attending Unavailable Nellie Zaman Primary Care Unavailable PROBLEMS PROBLEMS DATE TYPE CONDITION / CODE ATTENDING STATUS SOURCE 09/11/2018 Unknown M54.9 - Dorsalgia, Sandrita Ayala [place] [facility] M54.9(ICD-10) Hospital Repository 07/16/2018 Unknown I10 - Essential Nellie Zaman Active [place] (primary) [facility] hypertension / Hospital I10(ICD-10) Repository 05/16/2018 Unknown E55.9 - Vitamin D Nellie Zaman Active [place] deficiency, [facility] unspecified / Hospital E55.9(ICD-10) Repository 05/16/2018 Unknown D64.9 - Anemia, Nellie Zaman Active [place] unspecified / Community D64.9(ICD-10) Hospital Repository 01/06/2018 Unknown Z12.31 - Encounter Nellie Zaman Active [place] for screening [facility] mammogram for Hospital malignant neoplasm Repository of breast / Z12.31(ICD-10) PROCEDURES PROCEDURES No Procedure Records FoundRESULTS RESULTS CBC-COMPLETE BLOOD CNT Collected: 10/10/2018 Status: F Source: [place] NO DIFF 3:54 PM [facility] HOSPITAL REPOSITORY TYPE CODE TESTS RESULT OUT OF RANGE REFERENCE UNITS LAB L100.1000 4.4-11.0 K/mm3 Normal WBC 8.2 LAB L100.1200 4.2-5.4 M/mm3 Normal RBC 4.90 LAB L100.1300 12.0-15.0 g/dl Normal HGB 13.1 LAB L100.1400 37-47 % Normal HCT 40.6 LAB L100.1500 81-99 fL Normal MCV 82.9 LAB L100.1600 27.0-32.0 pg Low MCH 26.7 LAB L100.1700 32-36 g/gl Normal MCHC 32.3 LAB L100.1810 11.6-14.6 % Normal RDW CV 13.7 LAB L100.1820 35.1-43.9 fl Normal RDW SD 40.8 LAB L100.1900 150-450 K/mm3 Normal PLT 251 LAB L100.2000 6.2-12.0 fl Normal MPV 11.7 Performed By: #### L100.0500, L100.9950, L500.4050, L501.9520, L503.6075, L503.6150, L503.6550, L101.9900, L503.0105, L506.1000 #### [facility] [address] [place], [place], [address] RETIC PANEL Collected: 10/10/2018 Status: F Source: [place] 3:54 PM [facility] REPOSITORY TYPE CODE TESTS RESULT OUT OF RANGE REFERENCE UNITS LAB L101.0000 0.5-1.5 % Normal RETIC 1.44 LAB L101.0060 3.00-15.90 % IM Normal RET FRACTION 14.70 LAB L101.0090 30-35 pg Low RET-HE 27.7 Performed By: #### L100.0500, L100.9950, L500.4050, L501.9520, L503.6075, L503.6150, L503.6550, L101.9900, L503.0105, L506.1000 #### [facility] [address] [place], [place], [address] COMPREHENSIVE METABOLIC Collected: 10/10/2018 Status: F Source: [facility] 3:54 PM [facility] REPOSITORY TYPE CODE TESTS RESULT OUT OF RANGE REFERENCE UNITS LAB L501.0100 74-106 mg/dL Normal GLU 97 Result Comment: Please note revised GLUCOSE reference range effective 2017. LAB L501.1000 7-18 mg/dL Normal BUN 11 LAB L501.1100 0.55-1.02 mg/dL Normal CREAT,SERUM 0.85 Result Comment: The validity of the calculated GFR AND GFRAA in patients over 70 years has not been determined. Clinical correlation is essential. LAB L501.1110 >60 mL/min Normal EST GFR 76 Result Comment: Non- GFR Calc LAB L501.1115 >60 mL/min Normal EST GFR - AA 92 Result Comment: GFR Calc LAB L501.1300 10-20 RATIO Normal BUN/CRE 12.9 LAB L501.1500 6.4-8.2 g/dL T Normal PROT 7.4 LAB L501.1800 3.2-5.0 g/dL Normal ALB 3.4 LAB L501.1950 2.2-4.2 g/dL Normal GLOB 4.0 LAB L501.2000 0.9-2.4 RATIO Low A/G 0.8 LAB L501.2200 8.5-10.1 mg/dL Low CA 8.2 LAB L501.4100 15-37 U/L Low AST 14 LAB L501.4305 45-117 U/L Normal ALK P 77 LAB L501.4405 13-56 U/L Normal ALT 18 LAB L501.4600 0.20-1.00 mg/dL T Normal BILI 0.30 LAB L501.5300 136-145 mmol/L NA Normal 141 LAB L501.5600 3.5-5.1 mmol/L K Normal 3.9 LAB L501.5900 98-107 mmol/L High CL 109 LAB L501.6100 21.0-32.0 mmol/L Normal CO2 24.0 LAB L501.6200 5-15 Normal GAP 8 Performed By: #### L100.0500, L100.9950, L500.4050, L501.9520, L503.6075, L503.6150, L503.6550, L101.9900, L503.0105, L506.1000 #### [facility] [address] [place], [place], [address] THYROID STIM HORMONE Collected: 10/10/2018 Status: F Source: [place] (TSH) 3:54 PM [facility] REPOSITORY TYPE CODE TESTS RESULT OUT OF RANGE REFERENCE UNITS LAB L501.9520 0.358-3.74 uIU/mL Normal TSH 0.76 Performed By: #### L100.0500, L100.9950, L500.4050, L501.9520, L503.6075, L503.6150, L503.6550, L101.9900, L503.0105, L506.1000 #### [facility] [address] [place], [place], [id number] (376) IRON BINDING Collected: 10/10/2018 Status: F Source: [place],TOTAL 3:54 PM [facility] H[facility]PITAL REPOSITORY TYPE CODE TESTS RESULT OUT OF RANGE REFERENCE UNITS LAB L503.6075 250-450 ug/dL Normal TIBC 323 Performed By: #### L100.0500, L100.9950, L500.4050, L501.9520, L503.6075, L503.6150, L503.6550, L101.9900, L503.0105, L506.1000 #### [facility] [place], [place], [phone] (239) IRON Collected: 10/10/2018 Status: F Source: [place] 3:54 PM [facility] REPOSITORY TYPE CODE TESTS RESULT OUT OF RANGE REFERENCE UNITS LAB L503.6150 50-170 ug/dL Low IRON 40 Performed By: #### L100.0500, L100.9950, L500.4050, L501.9520, L503.6075, L503.6150, L503.6550, L101.9900, L503.0105, L506.1000 #### [facility] [address] [place] [address]. [place], [place], [phone] (325) FERRITIN Collected: 10/10/2018 Status: F Source: [place] 3:54 PM [facility] REPOSITORY TYPE CODE TESTS RESULT OUT OF REFERENCE UNITS RANGE LAB L503.6550 8-252 ng/mL Low FERRITIN 6 Performed By: #### L100.0500, L100.9950, L500.4050, L501.9520, L503.6075, L503.6150, L503.6550, L101.9900, L503.0105, L506.1000 #### [facility] [address] [place], [place] [address]. [place], [place], [phone] (647) ERYTHROCYTE SED RATE Collected: 10/10/2018 Status: F Source: [place] 3:54 PM [facility] REPOSITORY TYPE CODE TESTS RESULT OUT OF RANGE REFERENCE UNITS LAB L102.0000 0-20 mm/hr Normal SED RATE 19 Performed By: #### L100.0500, L100.9950, L500.4050, L501.9520, L503.6075, L503.6150, L503.6550, L101.9900, L503.0105, L506.1000 #### [facility] [address] [place], [place], [phone] (493) VITAMIN B12 Collected: 10/10/2018 Status: F Source: [place] 3:54 PM [facility] REPOSITORY TYPE CODE TESTS RESULT OUT OF RANGE REFERENCE UNITS LAB L503.0105 211-911 pg/mL Normal Vitamin B12 577 Performed By: #### L100.0500, L100.9950, L500.4050, L501.9520, L503.6075, L503.6150, L503.6550, L101.9900, L503.0105, L506.1000 #### [facility] [address] [place], [place], [address] VITAMIN D,25 HYDROXY Collected: 10/10/2018 Status: F Source: [place] 3:54 PM [facility] REPOSITORY TYPE CODE TESTS RESULT OUT OF REFERENCE UNITS RANGE LAB L506.1000 29.95-100.01 ng/mL Low Vitamin D 24.8 25-OH Result Comment: Vitamin D 25(OH) Status Range Deficiency <20 ng/mL (50nmol/L) Insuffciency 20 - 30 ng/mL (50 - 75 nmol/L) Sufficiency 30 - 100 ng/mL (75 - 250 nmol/L) Toxicity >100 ng/mL (>250 nmol/L) Performed By: #### L100.0500, L100.9950, L500.4050, L501.9520, L503.6075, L503.6150, L503.6550, L101.9900, L503.0105, L506.1000 #### [facility] [address] [place], [address] Observed: 09/10/2018 Status: F Source: [place] CULTURE, URINE 4:41 PM [facility] REPOSITORY Urine Culture ORGANISM 1: Presumptive E. coli [place] Count >100,000 Presumptive E. coli: REACTION Amoxacillin/Clavulanic Acid $ 16 I Ampicillin $ >=32 R Ampicillin/Sulbactam $ >=32 R Cefazolin $ <=4 S Cefepime $ <=1 S Ceftriaxone $ <=1 S Ciprofloxacin $ <=0.25 S ESBL - Ertapenim $$$ <=0.5 S Gentamicin $ <=1 S Imipenem *NF <=0.25 S Levofloxacin $ <=0.12 S Nitrofurantoin $ <=16 S Piperacillin/Tazobactam $$ <=4 S Tobramycin $ <=1 S Trimethoprim/Sulfametho $ <=20 S (NF) indicates non-formulary drug at [facility]. Approval by Infectious Disease Specialist required before non-formulary drugs may be ordered and/or dispensed. Performed By: #### M100.0650 #### [facility] [place], [address] CBC W/DIFF, AUTOMATED Collected: 07/16/2018 Status: F Source: [place] 8:30 AM [facility] REPOSITORY Order Comment: FERRITIN, IRON FOR EXTRA ORDERS TYPE CODE TESTS RESULT OUT OF RANGE REFERENCE UNITS LAB L100.1000 4.4-11.0 K/mm3 Normal WBC 9.4 LAB L100.1200 4.2-5.4 M/mm3 Normal RBC 5.04 LAB L100.1300 12.0-15.0 g/dl Normal HGB 14.0 LAB L100.1400 37-47 % Normal HCT 43.6 LAB L100.1500 81-99 fL Normal MCV 86.5 LAB L100.1600 27.0-32.0 pg Normal MCH 27.8 LAB L100.1700 32-36 g/gl Normal MCHC 32.1 LAB L100.1810 11.6-14.6 % Normal RDW CV 13.1 LAB L100.1820 35.1-43.9 fl Normal RDW SD 41.2 LAB L100.1900 150-450 K/mm3 Normal PLT 240 LAB L100.2000 6.2-12.0 fl Normal MPV 11.4 LAB L100.2100 47-70 % High NEUT% 76.8 LAB L100.2200 19-41 % Low LY% 13.3 LAB L100.2300 0-10 % Normal MONO% 7.0 LAB L100.2400 0-5 % Normal EO% 2.6 LAB L100.2500 0-1 % Normal BASO% 0.2 LAB L100.2550 0.0-0.9 % Normal IM GRAN % 0.100 Result Comment: IG% - Immature Granulocytes (promyelocytes, myelocytes and metamyelocytes) > 1% indicates that a LEFT SHIFT is Present. LAB L100.2620 2.0-7.7 X10 3/uL Normal Absolute Neut 7.2 LAB L100.2720 0.83-4.51 X10 3/ul Normal Absolute Lymph 1.25 Performed By: #### L100.0100 #### [facility] [address] [place], [address] COMPREHENSIVE METABOLIC Collected: 07/16/2018 Status: F Source: [facility] 8:30 AM [facility] REPOSITORY Order Comment: FERRITIN, IRON FOR EXTRA ORDERS TYPE CODE TESTS RESULT OUT OF RANGE REFERENCE UNITS LAB L501.0100 74-106 mg/dL Normal GLU 84 Result Comment: Please note revised GLUCOSE reference range effective 2017. LAB L501.1000 7-18 mg/dL Normal BUN 14 LAB L501.1100 0.55-1.02 mg/dL Normal CREAT,SERUM 0.76 Result Comment: The validity of the calculated GFR AND GFRAA in patients over 70 years has not been determined. Clinical correlation is essential. LAB L501.1110 >60 mL/min Normal EST GFR 87 Result Comment: Non- GFR Calc LAB L501.1115 >60 mL/min Normal EST GFR - AA 105 Result Comment: GFR Calc LAB L501.1300 10-20 RATIO Normal BUN/CRE 18.5 LAB L501.1500 6.4-8.2 g/dL T Normal PROT 7.7 LAB L501.1800 3.2-5.0 g/dL Normal ALB 3.5 LAB L501.1950 2.2-4.2 g/dL Normal GLOB 4.2 LAB L501.2000 0.9-2.4 RATIO Low A/G 0.8 LAB L501.2200 8.5-10.1 mg/dL Low CA 8.3 LAB L501.4100 15-37 U/L Normal AST 18 LAB L501.4305 45-117 U/L Normal ALK P 84 LAB L501.4405 13-56 U/L Normal ALT 21 LAB L501.4600 0.20-1.00 mg/dL T Normal BILI 0.30 LAB L501.5300 136-145 mmol/L NA Normal 139 LAB L501.5600 3.5-5.1 mmol/L K Normal 3.5 LAB L501.5900 98-107 mmol/L CL Normal 105 LAB L501.6100 21.0-32.0 mmol/L Normal CO2 26.0 LAB L501.6200 5-15 Normal GAP 8 Performed By: #### L500.4050 #### [facility] [address] [place], [address] HEMOGLOBIN A1C Collected: 07/16/2018 Status: F Source: [place] 8:30 AM [facility] REPOSITORY Order Comment: FERRITIN, IRON FOR EXTRA ORDERS TYPE CODE TESTS RESULT OUT OF RANGE REFERENCE UNITS LAB L501.9985 4.2-6.3 % Normal HGB A1C 5.1 Performed By: #### L501.9985 #### [facility] [address] IRON Collected: 07/16/2018 Status: F Source: [place] 12:00 AM [facility] REPOSITORY TYPE CODE TESTS RESULT OUT OF RANGE REFERENCE UNITS LAB L503.6150 50-170 ug/dL Low IRON 28 Performed By: #### L503.6150, L503.6550 #### [facility] [address] [facility] [address] FERRITIN Collected: 07/16/2018 Status: F Source: [place] 12:00 AM [facility] REPOSITORY TYPE CODE TESTS RESULT OUT OF RANGE REFERENCE UNITS LAB L503.6550 8-252 ng/mL Normal FERRITIN 20 Performed By: #### L503.6150, L503.6550 #### [facility] [address] [facility] [address] CBC W/DIFF, AUTOMATED Collected: 05/15/2018 Status: F Source: [place] 8:38 AM [facility] REPOSITORY TYPE CODE TESTS RESULT OUT OF RANGE REFERENCE UNITS LAB L100.1000 4.4-11.0 K/mm3 Normal WBC 8.6 LAB L100.1200 4.2-5.4 M/mm3 Normal RBC 4.79 LAB L100.1300 12.0-15.0 g/dl Normal HGB 13.8 LAB L100.1400 37-47 % Normal HCT 42.0 LAB L100.1500 81-99 fL Normal MCV 87.7 LAB L100.1600 27.0-32.0 pg Normal MCH 28.8 LAB L100.1700 32-36 g/gl Normal MCHC 32.9 LAB L100.1810 11.6-14.6 % Normal RDW CV 13.5 LAB L100.1820 35.1-43.9 fl Normal RDW SD 42.4 LAB L100.1900 150-450 K/mm3 Normal PLT 296 LAB L100.2000 6.2-12.0 fl Normal MPV 11.1 LAB L100.2100 47-70 % High NEUT% 71.3 LAB L100.2200 19-41 % Low LY% 17.9 LAB L100.2300 0-10 % Normal MONO% 7.4 LAB L100.2400 0-5 % Normal EO% 2.9 LAB L100.2500 0-1 % Normal BASO% 0.2 LAB L100.2550 0.0-0.9 % Normal IM GRAN % 0.300 Result Comment: IG% - Immature Granulocytes (promyelocytes, myelocytes and metamyelocytes) > 1% indicates that a LEFT SHIFT is Present. LAB L100.2620 2.0-7.7 X10 3/uL Normal Absolute Neut 6.2 LAB L100.2720 0.83-4.51 X10 3/ul Normal Absolute Lymph 1.55 Performed By: #### L100.0100 #### [facility] [address] [place], [address] VITAMIN D,25 HYDROXY Collected: 05/15/2018 Status: F Source: [place] 8:38 AM [facility] REPOSITORY TYPE CODE TESTS RESULT OUT OF RANGE REFERENCE UNITS LAB L506.1000 29.95-100.01 ng/mL Normal Vitamin D 40.4 25-OH Result Comment: Vitamin D 25(OH) Status Range Deficiency <20 ng/mL (50nmol/L) Insuffciency 20 - 30 ng/mL (50 - 75 nmol/L) Sufficiency 30 - 100 ng/mL (75 - 250 nmol/L) Toxicity >100 ng/mL (>250 nmol/L) Performed By: #### L506.1000 #### [facility] [address] [place], [address] IRON Collected: 05/15/2018 Status: F Source: [place] 8:30 AM [facility] REPOSITORY TYPE CODE TESTS RESULT OUT OF RANGE REFERENCE UNITS LAB L503.6150 50-170 ug/dL Low IRON 40 Performed By: #### L503.6150, L503.6550 #### [facility] [address] [place], [address] FERRITIN Collected: 05/15/2018 Status: F Source: [place] 8:30 AM [facility] REPOSITORY TYPE CODE TESTS RESULT OUT OF RANGE REFERENCE UNITS LAB L503.6550 8-252 ng/mL Normal FERRITIN 12 Performed By: #### L503.6150, L503.6550 #### [facility] [address] [place], [address] SCREENING MAMM (CAD), Observed: 01/06/2018 Status: F Source: [place] BILAT 8:04 AM [facility] REPOSITORY [facility] [address] [place] [address] SCREENING MAMM (CAD), BILAT MR#: [id number] Acct: [id number] Name: KRISTI MARIE Rep #: [id number] : 1970 F 47 From: Moise Sandy MD PCP: Nellie Zaman NP Status: REG CLI Study: SCREENING MAMM (CAD), BILAT Date of Exam: 01/06/18 Exam# [id number] Ordering Dr: Nellie Zaman MAMMOGRAPHY - BILATERAL SCREENING REASON FOR EXAM: Female, 47 years old. Routine annual screening examination. PERTINENT HISTORY: Non-contributory. TECHNIQUE: Digital bilateral breast vandana (3D mammographic acquisition) in the CC and MLO projections. 2-D mediolateral oblique (MLO) and craniocaudad (CC) views of both breasts were obtained. CAD: Full Field Digital Mammography with Computer Added Detection was performed. COMPARISON: None. Baseline examination. FINDINGS: Breast Composition: The breasts are heterogeneously dense, which may obscure small masses. There are no dominant masses or suspicious calcifications. Small benign-appearing bilateral axillary lymph nodes. No other significant abnormalities are identified. HPBI/SCREENING MAMM (CAD), BILAT IMPRESSION: Negative screening mammogram. Yearly followup mammogram recommended. (A) ASSESSMENT CATEGORY: BIRADS Category 2: Benign. A letter regarding these results will be sent to the patient by the facility within 30 days. Approximately 10% of breast cancers are not detected by mammography. A normal mammogram should not delay biopsy of a clinically suspicious abnormality. [id number] Electronically Signed: Moise Sandy MD at 8:15 EDT Tel [phone], Service support , CC: Nellie Zaman NP Service Trainer: Signed ALLERGIES ALLERGIES DATE TYPE / CODE NAME / CODE REACTION SEVERITY SOURCE 08/29/2013 Drug No Known Unknown [place] [facility] Allergy/4160 Allergies/F00 Hospital 52690(SNOMED 2094123(RXNOR Repository CT) M) ENCOUNTERS ENCOUNTERS ADMIT/DISCHARGE ACCOUNT ADMITTING ENCOUNTER LOCATION SOURCE NUMBER CLASS 10/10/2018 [id number] Ambulatory [place] 4 [facility] ing:MFPLAB Repository 09/11/2018 [id number] Ambulatory [place] 1 [facility] ing:LABSPEC Repository 07/16/2018 [id number] Ambulatory [place] 4 [facility] ing:LAB Repository 07/16/2018 [id number] Ambulatory [place] 9 [facility] ing:OLS.WCEH Repository 05/15/2018 [id number] Ambulatory [place] 9 [facility] ing:LABSPEC Repository 05/15/2018 [id number] Ambulatory [place] 2 [facility] ing:OLS.WCEH Repository 01/06/2018 [id number] Ambulatory [place] 8 [facility] ing:BI Repository PAYERS PAYERS ENCOUNTER GUARANTOR PAYER SUBSCRIBER SOURCE 10/10/2018 [facility] [place] [id number] Insurance:AETNAPolicy [facility]iboun[facility]angD[facility] [place]: [id number] [id number] Repository [address]Slo: 330) Date:8584-31-81[phone] () [place] [address]HX: 10/10/2018 Secondary NOT GIVENUNK [place] Insurance:SELF PAY [facility] Number: Effective Repository Date:2018-10-10 09/11/2018 [facility] [place] [id number] Insurance:AETNAPolicy SibounheuangDOB[facility] Number: [id number], [place] [id number] Repository [address]Bpb: 330) Date:0368-12-29IC [phone] () [place]17[place], [place] [address]MN: 09/11/2018 Secondary NOT GIVENUNK [place] Insurance:SELF PAY [facility] Number: Effective Repository Date:2018-09-11 07/16/2018 [facility] [place] [id number] Insurance:AETNAPolicy [facility]ibounhebrianagDOB[facility] Number: [id number], [place] [id number] Repository [address]Eex: ([phone]) Date:9437-21-08[phone] (HP) 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 [address]PX: 07/16/2018 Secondary NOT GIVENUNK [place] Insurance:SELF PAY [facility] Number: Effective Repository Date:2018-07-16 07/16/2018 [facility] Primary NOT GIVENUNK [place] [id number] Insurance:SELF PAY [place] Number: Effective Repository [id number]: (330) Date:2018-07-16 [phone] (HP) 05/15/2018 [facility] [place] [id number] Insurance:AETNAPolicy SibounheuangDOB: [facility] [place] Number: [id number] [id number] Repository [address]Yqu: (330) Date:0108-29-50[phone] (HP) [id number] [address]GA: 05/15/2018 Secondary NOT GIVENUNK [place] Insurance:SELF PAY [facility] Number: Effective Repository Date:2018-05-15 05/15/2018 [facility] Primary NOT GIVENUNK [place] [id number] Insurance:SELF PAY [place] Number: Effective Repository [id number]: (330) Date:2018-05-15 [phone] (HP) 01/06/2018 [facility] [place] [id number] Insurance:AETNAPolicy SibounheuangDOB: [facility] [place] Number: [id number], [place] [id number] Repository [address]Rsc: ([phone]) Date:2396-29-79JI [phone] (HP) [id number] [place] [address]GH: 01/06/2018 Secondary NOT GIVENUNK [place] Insurance:SELF PAY [facility] Number: Effective Repository Date:2017-12-19
== END ==
LOC: MFPLAB 15:54
PROVIDERS: Family Provider Family Medicine; PCP Family Medicine; Visit Provider Family Medicine
DX: I10 Essential (primary) hypertension (principal); D64.9 Anemia, unspecified; R53.83 Other fatigue
CPT/HCPCS: 36415; 80053; 82306; 82607; 82728; 83540; 83550; 84443; 85027; 85045; 85652

== ENCOUNTER → 2019-02-11 12:15 | Outpatient (CLI) | payer OTHER, SELFPAY ==
--- NOTE | 2019-02-11 12:19 | RAD_ITS ---
STUDY: X-RAY - LUMBAR SPINE REASON FOR EXAM: Female, 48 years old. 4 back pain, sciatica right side TECHNIQUE: 5 view(s) of the lumbar spine were obtained. COMPARISON: CT abdomen and pelvis 08/23/2016 sagittal reformation images. FINDINGS: Normal lumbar lordosis. There is no substantial scoliosis. There is a normal alignment of the vertebrae. Normal vertebral bodies and endplates. Normal disc space heights. The soft tissue structures are unremarkable. Mild right greater than left sclerosis of the inferior sacroiliac joint. RAD/L/S Spine Min 4 Views IMPRESSION: Sclerosis of the right inferior sacroiliac joint. Electronically Signed: Lela Camp MD at 4:12 EDT , Service support ,
== END ==
LOC: MTRAD 12:18
PROVIDERS: Family Provider Family Medicine; PCP Family Medicine; Referring Provider Family Medicine; Visit Provider Family Medicine
DX: M54.41 Lumbago with sciatica, right side (principal)
CPT/HCPCS: 72110

== ENCOUNTER → 2019-03-04 16:37 | Outpatient (CLI) | payer OTHER, SELFPAY ==
[2019-03-04 17:55] LABS: Absolute Lymphocyte Count 1.85 X10^3/ul (0.83-4.51); Absolute Neutrophil Count 8.4 X10^3/uL (2.0-7.7); Basophil# 0.01 X10^3/uL; Basophil% 0.1 % (0-1); Eosinophil# 0.25 X10^3/uL; Eosinophils% 2.2 % (0-5); Hemoglobin 12.2 g/dl (12.0-15.0); Lymphocyte # 1.85 X10^3/ul (4.0); Lymphocyte % 16.5 % (19-41); Mean Corp Hgb Conc 31.3 g/gl (32-36); Mean Corpuscular Volume 79.9 fL (81-99); Mean Platelet Vol. 10.5 fl (6.2-12.0); Monocyte# 0.74 X10^3/uL; Monocyte% 6.6 % (0-10); Neutrophil # 8.37 X10^3/uL (2.7-7.7); Neutrophil % 74.4 % (47-70); POSITIVE COUNT NO; POSITIVE DIFFERENTIAL NO; POSITIVE MORPHOLOGY NO; Platelet Count 255 K/mm3 (150-450); RBC Distribution Width CV 16.1 % (11.6-14.6); RBC Distribution Width SD 46.7 fl (35.1-43.9); Red Blood Count 4.88 M/mm3 (4.2-5.4); White Blood Count 11.2 K/mm3 (4.4-11.0)
[2019-03-04 18:27] LABS: Ferritin 5 ng/mL (8-252); Iron 27 ug/dL (50-170)
[2019-03-04 18:33] LABS: Vitamin D,25 Hydroxy 19.7 ng/mL (29.95-100.01)
== END ==
LOC: MFPLAB 16:37
PROVIDERS: Family Provider Family Medicine; PCP Family Medicine; Referring Provider Family Medicine; Visit Provider Family Medicine
DX: E55.9 Vitamin D deficiency, unspecified (principal); D64.9 Anemia, unspecified
CPT/HCPCS: 36415; 82306; 82728; 83540; 85025

== ENCOUNTER 2019-03-15 08:30 | Outpatient (RCR) | payer OTHER, SELFPAY ==
--- NOTE | 2019-02-13 12:24 | HP.PTEVAL_ITS ---
Patient's Visit Information KRISTI MARIE is a 48 year old F referred to Physical Therapy by Rene Shelton MD with a diagnosis of LUMBAGO WITH SCIATICA LEFT SIDE. Date of Evaluation: 02/13/19 Physical Therapist: Belkis Toro PT, Cert MDT - Visit Plan Frequency: 2-3x /Week Duration: 4-6 Weeks Plan: MODALITIES NEEDED. POSTURE CORRECTION/STRENGTHENING, INSTRUCTION IN APPROPRIATE BODY MECHANICS AND ACTIVITY MODIFICATIONS. DLS STARTING WITH A N EUTRAL SPINE PROGRESSING ROM TOLERATED. JACK LE ROM, STRETCHING AND STRENGTHENING. HEP INSTRUCTION. 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 REDUCED WORK HOURS DUE TO PAIN. NOTE FROM DR. SHELTON EXCUSING HER FROM WORK UNTIL TOMORROW. Disability: NO. Present symptoms: LEFT BUTTOCK, THIGH, LEG PAIN. NO PAIN, NUMBNESS OR TINGLING IN FOOT. NO NUMBNESS OR TINGLING AT ALL. Present since: Monday02/09/19. Pain Scale: WORST 10/10, LEAST 6/10. Currently: 9/10. PATIENT REPORTS SHE THINKS SHE IS GETTING A LITTLE BETTER BUT THE PAIN IS STILL REALLY BAD AND SHE WAS IN TEARS DRIVING HERE TODAY. Commenced as a result of: NO APPARENT REASON. Symptoms at onset: BACK OF LEFT THIGH. Worse: SITTING, BENDING, BRUSHING TEETH, DRIVING, LIFTING,. Better: STANDING AND WALKING, MASSAGE BY FAMILY MEMBERS. Disturbed sleep: YES. Previous history/Previous treatment: LAST OCT WENT TO [facility] FOR BACK FOR THE FIRST TIME BECAUSE HER BACK HURT FOR NO APPARENT REASON. 3-4 [facility] VISITS TOTAL. THE PAIN SEEMED TO GO AWAY UNTIL MONDAY. NO BACK SURGERY. NO BACK INJECTIONS. Coughing/sneezing/straining: POSITIVE. Gait: SLOW AND SOME PAIN BUT NOT MUCH SITTING. A LITTLE BIT OF LIMP. Difficulty initiating urinatin: NO. Accidents: NO. Unexplained weig ht loss: NO. Imaging: X-RAYS MONDAY. PMH: HTN, IRON DEFICIENCY. Recent major surgery: NO. PLOF (Prior Level of Function): UNLIMITED. 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 - Objective Sitting/Standing Posture: POOR. VERY UNCOMFORTABLE FOR PATIENT TO SIT AND SHE ONLY DOES IT FOR A FEW MINUTES AT A TIME. Lordosis: NORMAL. Lateral shift: NO . Relevant shift: N/A. Active Correction of posture: BETTER. Other Observations: INDEP GAIT INTO PT WITH MILD LIMP ON RIGHT LE. NO AD'S. Motor deficit: RIGHT HIP 4/5, KNEE EXT 5/5, KNEE FLEX 5/5, ANKLE 5/5. LEFT HIP 3-/5, KNEE EXT 4-/5, KNEE FLEX 3-/5, ANKLE DORSI 4/5. Sensory deficit: DECREASED LIGHT TOUCH SENSATION LEFT LATERAL THIGH AND LEG. FEET SYMMETRICAL. ROM deficit: RIGHT LE WFL. DIFFICULT TO TEST LLE DUE TO PAIN AND POSITIVE DURAL TESTING. Reflexes: 2/3 JACK LE'S. Dural Signs: POSITIVE JACK LE'S LEFT > RIGHT. Lumbar mvmt loss: flex - MOD. ext - MOD. R SG - MOD. L SG - MOD. PATIENT C/O LEFT POST THIGH PAIN WITH LUMBAR FLEX AND EXTENSION TESTING BUT NOT WITH JACK SG TESTING AND ACTUALLY HAD SOME RELIEF WITH SG'ING. Core strength: POOR. Palpation: NO ACUTE LUMBAR, SI JOINT, BUTTOCK, HIP OR THIGH TENDERNESS. OTHER: PATIENT IS UNABLE TO LIE PRONE. LESS PAIN IN SITTING WITH LUMBAR SUPPORT BUT STILL PAINFUL. - Goals Goal 1:: DECREASE C/O BACK AND LLE SX'S. Goal Time Frame: 4-6 Weeks Goal 2:: IMPROVE PERSONAL CARE, LIFTING, SITTING, STANDING, SLEEP, SOCIAL LIFE, TRAVEL, WORK AND HOMEMAKING FUNCTION. Goal Time Frame: 4-6 Weeks Goal 3:: INSTRUCT IN PROPHYLAXIS Goal Time Frame: 4-6 Weeks - Rehabilitation Potential Rehabilitation Potential: Fair - Anticipated Interventions Patient/Client Instruction: Educate patient on: Condition, Plan of Care, Risk Factors, Benefits of Fitness Program For the Purpose of:: To improve self management Therapeutic Exercise to Include: Strength training, Body mechanics, Postural training, Gait and locomotor training, In an aquatic setting, Dynamic Lumbar Stabilization Comment: CONSIDER AQUATIC THERAPY. For the Purpose of:: To decrease pain, To improve muscle performance and motor function, To increase tolerance to activity/condition/position, To improve ability of physical actions for home/community/work/leisure, To improve gait and locomotor functions Manual Therapy Techniques to Include: Mobilization, Functional dry needling, Soft tissue mobilization For the Purpose of:: To decrease pain, To increase ROM, To improve nutrient delivery to tissue TENS: Yes IF ES: Yes Cryotherapy (ice pack, ice massage): Yes Thermo therapy (hot pack): Yes Ultrasound (thermal/non thermal): Yes For the Purpose of:: To decrease pain, To decrease swelling/inflammation, To increase ROM, To improve nutrient delivery to tissue Thank you for the opportunity to evaluate your patient. For Medicare and Medicare HMO plans, please review the plan of care and approve it. It will need to be FAXED BACK to us at [phone] for Medicare purposes. For Medicare only, by signing this I certify the plan of care. Please let me know if there are questions or concerns regarding this plan of care. Physician Signature: Date:
--- NOTE | 2019-02-20 10:47 | HP.PTREVAL ---
Rene Shelton MD, It has been my pleasure to treat KRISTI MARIE over the last 3 visits for LUMBAGO WITH SCIATICA LEFT SIDE. Please see the progress note below for an update on the physical therapy plan of care! Subjective: PATIENT REPORTS SHE CALLED HER TO GET X-RAY RESULTS BUT HASN'T HEARD BACK FROM THEM YET. PATIENT REPORTS SHE IS HAVING A LITTLE LESS PAIN - ABLE TO SIT AND DRIVE BETTER NOW. PATIENT REPORTS A LOT OF PULLING DOWN HER LEFT LEG. PATIENT REPORTS THAT SOMETIME MONDAY SHE DEVELOPED NUMBNESS IN HER FEET. BOTH FEET. THE WHOLE LEFT FOOT IS NUMB AND THE TOP OF THE RIGHT FOOT IS NUMB TOO. PATIENT REPORTS NO CHANGE AFTER LAST VISIT AND NON COMPLIANCE WITH HOME EX BUT DID DO IT A LITTLE BIT - ONCE OR TWICE YESTERDAY. STANDING A LOT AT WORK MONDAY. Objective/Function: THIS PT CALLED DR. SHELTON'S OFFICE TO REPORT WORSENING OF PATIENT SX'S. JEANIE SAID THAT DR. SHELTON CAN SEE HER AT NOON TODAY. INFORMED PATIENT. PATIENT TOLERATED ALL INTERVENTIONS WELL TODAY AND JACK FOOT SX'S WERE ABOLISHED AND LLE SX'S REDUCED. ENCOURAGED COMPLIANCE WITH HOME INSTUCTIONS GIVEN INCLUDING RESTING IN LYING PERIODICALLY ABLE. Plan Plan: RE-ASSESSMENT WITH DR. SHELTON TODAY. MODALITIES NEEDED. POSTURE CORRECTION/STRENGTHENING, INSTRUCTION IN APPROPRIATE BODY MECHANICS AND ACTIVITY MODIFICATIONS. DLS STARTING WITH A NEUTRAL SPINE PROGRESSING ROM TOLERATED. JACK LE ROM, STRETCHING AND STRENGTHENING. HEP INSTRUCTION. Goals Goal 1:: DECREASE C/O BACK AND LLE SX'S. Goal Time Frame: 4-6 Weeks Goal 2:: IMPROVE PERSONAL CARE, LIFTING, SITTING, STANDING, SLEEP, SOCIAL LIFE, TRAVEL, WORK AND HOMEMAKING FUNCTION. Goal Time Frame: 4-6 Weeks Goal 3:: INSTRUCT IN PROPHYLAXIS Goal Time Frame: 4-6 Weeks Anticipated Interventions Patient/Client Instruction: Educate patient on: Condition, Plan of Care, Risk Factors, Benefits of Fitness Program For the Purpose of:: To improve self management Therapeutic Exercise to Include: Strength training, Body mechanics, Postural training, Gait and locomotor training, In an aquatic setting, Dynamic Lumbar Stabilization Comment: CONSIDER AQUATIC THERAPY. For the Purpose of:: To decrease pain, To improve muscle performance and motor function, To increase tolerance to activity/condition/position, To improve ability of physical actions for home/community/work/leisure, To improve gait and locomotor functions Manual Therapy Techniques to Include: Mobilization, Functional dry needling, Soft tissue mobilization For the Purpose of:: To decrease pain, To increase ROM, To improve nutrient delivery to tissue TENS: Yes IF ES: Yes Cryotherapy (ice pack, ice massage): Yes Thermo therapy (hot pack): Yes Ultrasound (thermal/non thermal): Yes For the Purpose of:: To decrease pain, To decrease swelling/inflammation, To increase ROM, To improve nutrient delivery to tissue Please do not hesitate to contact me at [phone] by phone or if you have questions or concerns regarding this new plan of care! Sincerely, Belkis Toro, PT, Cert MDT
--- NOTE | 2019-03-01 09:25 | HP.PTREVAL_ITS ---
Rene Shelton MD, It has been my pleasure to treat KRISTI MARIE over the last 7 visits for LUMBAGO WITH SCIATICA LEFT SIDE. Please see the progress note below for an update on the physical therapy plan of care! Subjective: PATIENT REPORTS SHE IS GETTING BETTER BUT IT STILL TAKES 15 TO 45 MINUTES IN THE MORNINGS TO LOOSEN UP. REPORTS THAT THE EX WHERE SHE LIFTS HER LEG IS GOING BETTER. STATES LAST TREATMENT HELPED A LOT. REPORTS COMPLIANCE WITH HOME INSTRUCTIONS. PATIENT REPORTS THE NUMBNESS IN HER FEET IS STILL OFF ON BUT NOW WHEN SHE GETS IT IT DOESN'T LINGER LONG (USE TO BE HOURS). Objective/Function: PATIENT REPORTS SHE HAS AN VICKIE'T WITH DR. SHELTON TOMORROW FOR SOMETHING OTHER THAN HER BACK BUT SHE WILL TALK TO HIM ABOUT IT. SHE MAY BENEFIT FROM PHYSICIAN RE-ASSESSMENT OF HER BACK DUE TO EASE OF PERIPHERALIZATION OF SX'S BUT PATIENT IS DEFINATELY IMPROVING OVER-ALL. ACTUALLY ABLE TO WALK NORMALLY INTO PT TODAY WITHOUT LIMP AND C/O OF MILD 2-3/10 PULLING IN LLE. DURAL TENSION IS ALSO DECREASING ALONG WITH SITTING TOLERANCE IMPROVING. Plan Plan: CONT PER POC TOLERATED MONITORING FOR PERIPHERALIZATION OF SX'S. Goals Goal 1:: DECREASE C/O BACK AND LLE SX'S. Goal Time Frame: 4-6 Weeks Goal Progress: Progressing Goal 2:: IMPROVE PERSONAL CARE, LIFTING, SITTING, STANDING, SLEEP, SOCIAL LIFE, TRAVEL, WORK AND HOMEMAKING FUNCTION. Goal Time Frame: 4-6 Weeks Goal Progress: Progressing Goal 3:: INSTRUCT IN PROPHYLAXIS Goal Time Frame: 4-6 Weeks Goal Progress: Progressing Anticipated Interventions Patient/Client Instruction: Educate patient on: Condition, Plan of Care, Risk Factors, Benefits of Fitness Program For the Purpose of:: To improve self management Therapeutic Exercise to Include: Strength training, Body mechanics, Postural training, Gait and locomotor training, In an aquatic setting, Dynamic Lumbar Stabilization Comment: CONSIDER AQUATIC THERAPY. For the Purpose of:: To decrease pain, To improve muscle performance and motor function, To increase tolerance to activity/condition/position, To improve ability of physical actions for home/community/work/leisure, To improve gait and locomotor functions Manual Therapy Techniques to Include: Mobilization, Functional dry needling, Soft tissue mobilization For the Purpose of:: To decrease pain, To increase ROM, To improve nutrient delivery to tissue TENS: Yes IF ES: Yes Cryotherapy (ice pack, ice massage): Yes Thermo therapy (hot pack): Yes Ultrasound (thermal/non thermal): Yes For the Purpose of:: To decrease pain, To decrease swelling/inflammation, To increase ROM, To improve nutrient delivery to tissue Please do not hesitate to contact me at [phone] by phone or Fax: if you have questions or concerns regarding this new plan of care! Sincerely, Belkis Toro, PT, Cert MDT
--- NOTE | 2019-03-15 09:27 | HP.PTDCSUM ---
HP - PT D/C Summary It has been my pleasure to treat KRISTI MARIE under orders from Rene Shelton MD, for the diagnosis of LUMBAGO WITH SCIATICA LEFT SIDE for a total of 13 visit(s). Discharge Date: Please see the following information for a summary of their discharge status. - Subjective Subjective: PATIENT REPORTS SHE HAS HAD SOME LEFT BUTTOCK SYMPTOMS SINCE LAST VISIT BUT OTHERWISE FEELING PRETTY NORMAL. SHE STATES SHE WILL CONTINUE TO DO THE EX'S AND IS HOPING TO STOP COMING TO PT - Pain LEFT BUTTOCK Pain Intensity (Out of 10): 0 LEFT THIGH Pain Intensity (Out of 10): Unrated LEFT CALF Pain Intensity (Out of 10): Unrated LEFT FOOT Pain Intensity (Out of 10): 0 - Overall Improvement % Improvement: 99 - Objective Objective/Function: ALL GOALS HAVE BEEN MET HOWEVER PATIENT DOES STILL HAVE POSITIVE RIGHT LE DURAL SIGNS. SHE IS NOW ABLE TO TOLERATED SEATING WELL AND HAS INDEP GAIT WITHOUT DEVIATION. JACK LE ROM AND STRENGTH IS WFL BUT RIGHT HIP WEAKNESS 4/5 COMPARED TO 5/5 ON RIGHT. SHE HAS FAIR CORE STRENGTH AND IS INDEP WITH A HEP. HER LUMBAR ROM IS WFL ALL PLANES NOW TOO BUT MINIMAL LUMBAR FLEXION MVMT LOSS THAT PATIENT RELATES TO PULLING ON LLE DURING TESTING. SHE HAS IMPROVED PROPER POSTURE AND METEOROLOGICAL TECHNICIAN AWARENESS TOO. SHE HAS RECENTLY REPORTED INTERMITTENT JACK FOOT NUMBNESS AND PULLING DOWN LLE BUT ALL SYMPTOMS ARE GREATLY IMPROVED SINCE INITIAL EVAL. PATIENT IS NOT TENDER WITH LUMBOSACRAL PALPATION HOWEVER SHE REPORTS A FEELING OF RELEIF IN THE LLE WITH L45S1 EXTENSION MOBILIZATION TESTING TODAY. - Goals Goal 1:: DECREASE C/O BACK AND LLE SX'S. Goal Progress: Goal Met Goal 2:: IMPROVE PERSONAL CARE, LIFTING, SITTING, STANDING, SLEEP, SOCIAL LIFE, TRAVEL, WORK AND HOMEMAKING FUNCTION. Goal Progress: Goal Met Goal 3:: INSTRUCT IN PROPHYLAXIS Goal Progress: Goal Met - Plan Plan: D/C TO INDEP HEP AT PATIENTS REQUEST WITH CAUTION TO BE CAREFUL WITH BENDING, LIFTING AND TWISTING AND TO FOLLOW UP RIGHT AWAY WITH DR. SHELTON IF HER SYMPTOMS DO NOT CONTINUE TO IMPROVE OR IF THEY WORSEN. PATIENT AGREEABLE. - D/C Information If there are questions or concerns regarding this patient's physical therapy, please feel free to call me at [phone]. Thank you for the referral of this patient. Sincerely, Belkis Toro PT, Cert MDT
== END 2019-03-15 13:45 | disposition home or self-care (01) ==
LOC: PT 08:30
PROVIDERS: Family Provider Family Medicine; PCP Family Medicine; Referring Provider Family Medicine; Visit Provider Family Medicine
DX: M54.42 Lumbago with sciatica, left side (principal); M54.41 Lumbago with sciatica, right side
CPT/HCPCS: 97014; 97035; 97110; 97162; 97530; G0283

== ENCOUNTER → 2019-03-20 14:03 | Outpatient (CLI) | payer OTHER, SELFPAY ==
--- NOTE | 2019-03-20 14:06 | ECHOD_ITS ---
Reason For Study: MURMUR Procedure This was a 2D Doppler, Color Flow transthoracic echocardiogram. Exam performed in department. Left Ventricle Normal size and thickness. The estimated ejection fraction is 65 %. Normal diastology for age. No regional wall motion abnormalities noted. Right Ventricle Normal size and thickness. Normal systolic function. Atria Normal left atrium. Normal right atrium. Normal atrial septum. Mitral Valve The mitral valve is structurally normal. No prolapse or stenosis seen. Tricuspid Valve Normal tricuspid valve. Trivial tricuspid valve insufficiency. Right ventricular systolic pressure estimated to be 26 mmHg. Aortic Valve Normal aortic valve. Trisinus/trileaflet aortic valve. Pulmonic Valve Normal pulmonic valve. Great Vessels Normal aortic root. Normal arch. Normal inferior vena cava. Inferior vena cava collapse with sniff. Pericardium/Pleural No pericardial effusion. MMode/2D Measurements & Calculations LVIDd: 4.3 cm IVSd: 1.2 cm Ao root diam: 3.0 cm LVIDs: 2.8 cm LVPWd: 1.1 cm RVDd: 2.0 cm FS: 34.9 % LAV(MOD-bp): 34.4 ml LA A4 area: 13.9 cm2 LA dimension(2D): 3.6 cm LAV(MOD-bp) Indexed: 23.9 ml/m2 LAV(MOD-sp2): 30.5 ml LAV(MOD-sp4): 37.2 ml RA A4 area: 10.8 cm2 Time Measurements MV dec time: 0.12 sec Doppler Measurements & Calculations MV E max jayden: 80.8 cm/sec Lat Peak E' Jayden: 8.4 cm/sec Med Peak E' Jayden: 6.2 cm/sec MV A max jayden: 68.7 cm/sec E/E' lat: 9.6 E/E' med: 13.0 MV E/A: 1.2 Ao V2 max: 136.4 cm/sec LV V1 max: 95.8 cm/sec PA V2 max: 95.2 cm/sec Ao max P.4 mmHg LV V1 max P.7 mmHg TR max jayden: 225.7 cm/sec TR max P.6 mmHg Interpretation Summary The estimated ejection fraction is 65 %. Normal diastology for age. Trivial tricuspid valve insufficiency. Right ventricular systolic pressure estimated to be 26 mmHg. There is no comparison study available. Ordering Physician: Arley Ayala Referring Physician: Arley Ayala Performed By: Martha Bah RDCS, RVT
== END ==
PROVIDERS: Family Provider Family Medicine; PCP Family Medicine; Referring Provider Family Medicine; Visit Provider Family Medicine
DX: R01.1 Cardiac murmur, unspecified (principal)
CPT/HCPCS: 93306

== ENCOUNTER → 2019-06-25 16:56 | Outpatient (CLI) | payer OTHER, SELFPAY ==
[2019-06-25 17:40] LABS: Absolute Lymphocyte Count 1.84 X10^3/uL (0.83-4.51); Absolute Neutrophil Count 5.2 X10^3/uL (2.0-7.7); Basophil# 0.04 X10^3/uL; Basophil% 0.5 % (0-1); Eosinophil# 0.18 X10^3/uL; Eosinophils% 2.3 % (0-5); Hematocrit 34.3 % (37-47); Hemoglobin 10.1 g/dL (12.0-15.0); Lymphocyte # 1.84 X10^3/ul (4.0); Lymphocyte % 23.3 % (19-41); Mean Corp Hgb Conc 29.4 g/dL (32-36); Mean Corpuscular Hgb 23.1 pg (27.0-32.0); Mean Corpuscular Volume 78.3 fL (81-99); Mean Platelet Vol. 10.2 fl (6.2-12.0); Monocyte# 0.65 X10^3/uL; Monocyte% 8.2 % (0-10); NRBC Flagged by Analyzer 0 % (0-5); Neutrophil # 5.17 X10^3/uL (2.7-7.7); Neutrophil % 65.4 % (47-70); Platelet Count 415 K/mm3 (150-450); RBC Distribution Width CV 14.7 % (11.6-14.6); RBC Distribution Width SD 42.1 fl (35.1-43.9); Red Blood Count 4.38 M/mm3 (4.2-5.4); White Blood Count 7.9 K/mm3 (4.4-11.0)
[2019-06-25 19:02] LABS: Anion Gap 6 (5-15); BUN 12 mg/dL (7-18); Calcium,Total 8.7 mg/dL (8.5-10.1); Chloride 105 mmol/L (98-107); Creatinine, Serum 1.09 mg/dL (0.55-1.02); EST Glomerular Filtration Rate 57 mL/min (>60); Est Glom Filt Rate - Afr Amer 69 mL/min (>60); Glucose 87 mg/dL (74-106); Potassium 3.3 mmol/L (3.5-5.1); Sodium Level 143 mmol/L (136-145)
[2019-06-26 10:48] LABS: Iron 14 ug/dL (50-170)
== END ==
PROVIDERS: Family Provider Family Medicine; PCP Family Medicine; Referring Provider Family Medicine; Visit Provider Family Medicine
DX: I10 Essential (primary) hypertension (principal); D64.9 Anemia, unspecified; E55.9 Vitamin D deficiency, unspecified
CPT/HCPCS: 36415; 80048; 83540; 85025

== ENCOUNTER → 2019-07-02 16:48 | Outpatient (CLI) | payer OTHER, SELFPAY ==
[2019-07-02 17:40] LABS: Hematocrit 35.4 % (37-47); Hemoglobin 10.6 g/dL (12.0-15.0); Mean Corp Hgb Conc 29.9 g/dL (32-36); Mean Corpuscular Hgb 23.5 pg (27.0-32.0); Mean Corpuscular Volume 78.5 fL (81-99); Mean Platelet Vol. 10.8 fl (6.2-12.0); Platelet Count 394 K/mm3 (150-450); RBC Distribution Width CV 16.1 % (11.6-14.6); RBC Distribution Width SD 42.5 fl (35.1-43.9); Red Blood Count 4.51 M/mm3 (4.2-5.4); White Blood Count 9.8 K/mm3 (4.4-11.0)
[2019-07-02 18:06] LABS: Iron 25 ug/dL (50-170)
[2019-07-02 18:17] LABS: Vitamin D,25 Hydroxy 24.7 ng/mL (29.95-100.01)
[2019-07-02 18:19] LABS: Albumin, Serum 3.3 g/dL (3.2-5.0); BUN 12 mg/dL (7-18); BUN/Creat Ratio 14.4 RATIO (10-20); Calcium,Total 8.5 mg/dL (8.5-10.1); Chloride 110 mmol/L (98-107); Creatinine, Serum 0.83 mg/dL (0.55-1.02); EST Glomerular Filtration Rate 78 mL/min (>60); Est Glom Filt Rate - Afr Amer 94 mL/min (>60); Glucose 92 mg/dL (74-106); Phosphorus 2.8 mg/dL (2.5-4.9); Potassium 3.6 mmol/L (3.5-5.1); Sodium Level 141 mmol/L (136-145)
== END ==
LOC: MTLAB 16:50
PROVIDERS: Internal Medicine Nephrology; Family Provider Family Medicine; PCP Family Medicine; Referring Provider Family Medicine; Visit Provider Family Medicine
DX: D64.9 Anemia, unspecified (principal); E55.9 Vitamin D deficiency, unspecified; I10 Essential (primary) hypertension
CPT/HCPCS: 36415; 80069; 82306; 83540; 85027

== ENCOUNTER → 2019-09-05 16:51 | Outpatient (CLI) | payer OTHER, SELFPAY ==
[2019-09-05 18:00] LABS: Absolute Lymphocyte Count 1.79 X10^3/uL (0.83-4.51); Basophil# 0.05 X10^3/uL; Basophil% 0.6 % (0-1); Eosinophil# 0.22 X10^3/uL; Eosinophils% 2.8 % (0-5); Hematocrit 43.4 % (37-47); Hemoglobin 13.5 g/dL (12.0-15.0); Lymphocyte # 1.79 X10^3/ul (4.0); Lymphocyte % 22.5 % (19-41); Mean Corp Hgb Conc 31.1 g/dL (32-36); Mean Corpuscular Hgb 25.7 pg (27.0-32.0); Mean Corpuscular Volume 82.7 fL (81-99); Mean Platelet Vol. 11.4 fl (6.2-12.0); Monocyte# 0.88 X10^3/uL; Monocyte% 11.1 % (0-10); NRBC Flagged by Analyzer 0 % (0-5); Neutrophil # 4.97 X10^3/uL (2.7-7.7); Neutrophil % 62.5 % (47-70); Platelet Count 293 K/mm3 (150-450); RBC Distribution Width CV 17.6 % (11.6-14.6); RBC Distribution Width SD 53.1 fl (35.1-43.9); Red Blood Count 5.25 M/mm3 (4.2-5.4)
[2019-09-05 18:29] LABS: Iron 34 ug/dL (50-170)
== END ==
LOC: MTLAB 16:53
PROVIDERS: Family Provider Family Medicine; PCP Family Medicine; Referring Provider Family Medicine; Visit Provider Family Medicine
DX: D64.9 Anemia, unspecified (principal)
CPT/HCPCS: 36415; 83540; 85025

== ENCOUNTER → 2019-12-20 09:49 | Outpatient (CLI) | payer OTHER, SELFPAY ==
--- NOTE | 2019-12-20 09:52 | RAD_ITS ---
STUDY: X-RAY - RIGHT KNEE REASON FOR EXAM: Female, 49 years old. Knee pain after fall TECHNIQUE: 4 view(s) of the knee. COMPARISON: None. FINDINGS: Normal visualized distal femur. Normal visualized proximal tibia and fibula. Normal proximal tibiofibular articulation. Normal medial femorotibial compartment. Normal lateral femorotibial compartment. Normal patellofemoral articulation. The soft tissue structures are unremarkable. RAD/Knee 4 or More Views IMPRESSION: Normal x-ray examination of the knee. Electronically Signed: Melvin Suresh MD at 9:27 EST , Service support ,
== END ==
LOC: HPRAD 09:50
PROVIDERS: PCP Family Medicine; Referring Provider Nurse Practitioner; Visit Provider Nurse Practitioner
DX: M25.561 Pain in right knee (principal)
CPT/HCPCS: 73564

== ENCOUNTER → 2020-01-02 | Outpatient (CLI) | payer OTHER, SELFPAY ==
--- NOTE | 2020-01-02 | EMB_PTH ---
PATIENT: KRISTI MARIE [facility] U[facility][id number] AGE/SX: 49/F ROOM: RE01/02/[address]: Dr. oTni eRyes MD : 1970 BED: DIS: 01/02/2020 SPEC #: [id number] RECD: 01/02/20 15:58 STATUS: GERMÁN RESteven #: [id number] WANG: 01/02/20 00:[address]: Toni Reyes DEPT: SURGICAL PATHOLOGY RECD BY: Alberto Riojas ENTERED: 01/03/20 10:10 SP TYPE: ENDOM BX/C OTHR DR: Dr. Arley Ayala MD Tissues: Endometrium, NOS Procedures: Surgery Specimen Level IV HEADER OPERATION: Endometrial biopsy PRE-OP DIAGNOSIS: PMB TISSUE SUBMITTED: Endometrial biopsy MICROSCOPIC DIAGNOSIS Endometrium, biopsy: Dyssynchronous endometrium with primarily secretory change. Focal glandular and stromal breakdown. No evidence of hyperplasia. AM:felipe 01/06/20 MICROSCOPIC DESCRIPTION Slides are reviewed. GROSS DESCRIPTION Received is one container labeled with the patient's name and not further designated. The specimen consists of multiple fragments of hemorrhagic soft tissue that in aggregate measure 3 x 2.5 x 0.3 cm. The specimen is totally submitted in one cassette. / SJ:felipe 01/03/20 TC:5 CPT: 28160
[2020-01-07 17:13] LABS: HPV Reflexed? NOT INDICATED
== END | disposition home or self-care (01) ==
LOC: LABSPEC 17:15
PROVIDERS: PCP Family Medicine; Referring Provider Obstetrics & Gynecology; Visit Provider Obstetrics & Gynecology
DX: Z12.4 Encounter for screening for malignant neoplasm of cervix (principal); N95.0 Postmenopausal bleeding
CPT/HCPCS: 88175; 88305; G0145

== ENCOUNTER → 2020-05-06 07:59 | Outpatient (CLI) | payer OTHER, SELFPAY ==
[2020-05-06 10:17] LABS: Absolute Lymphocyte Count 1.55 X10^3/uL (0.83-4.51); Basophil# 0.06 X10^3/uL; Basophil% 0.7 % (0-1); Eosinophil# 0.29 X10^3/uL; Eosinophils% 3.4 % (0-5); Hematocrit 35.8 % (37-47); Hemoglobin 10.8 g/dL (12.0-15.0); Lymphocyte # 1.55 X10^3/ul (4.0); Mean Corp Hgb Conc 30.2 g/dL (32-36); Mean Corpuscular Hgb 24.3 pg (27.0-32.0); Mean Corpuscular Volume 80.4 fL (81-99); Mean Platelet Vol. 10.5 fl (6.2-12.0); Monocyte# 0.66 X10^3/uL; Monocyte% 7.7 % (0-10); NRBC Flagged by Analyzer 0 % (0-5); Neutrophil # 6.01 X10^3/uL (2.7-7.7); Neutrophil % 69.9 % (47-70); Platelet Count 315 K/mm3 (150-450); RBC Distribution Width CV 13.5 % (11.6-14.6); Red Blood Count 4.45 M/mm3 (4.2-5.4); White Blood Count 8.6 K/mm3 (4.4-11.0)
[2020-05-06 10:35] LABS: Vitamin D,25 Hydroxy 24.8 ng/mL
[2020-05-06 10:53] LABS: Anion Gap 4 (5-15); BUN 14 mg/dL (7-18); BUN/Creat Ratio 18.5 RATIO (10-20); Calcium,Total 8.2 mg/dL (8.5-10.1); Chloride 106 mmol/L (98-107); Cholesterol 177 mg/dL (200); Creatinine, Serum 0.76 mg/dL (0.55-1.02); EST Glomerular Filtration Rate 86 mL/min (>60); Est Glom Filt Rate - Afr Amer 105 mL/min (>60); Ferritin 3 ng/mL (8-252); Glucose 87 mg/dL (74-106); High Density Lipoprotein 50 mg/dL; Iron 21 ug/dL (50-170); Potassium 3.8 mmol/L (3.5-5.1); Sodium Level 139 mmol/L (136-145); Triglycerides 247 mg/dL; Very Low Density Lipoprotein 49 mg/dL (5-40)
== END ==
LOC: MTLAB 08:01
PROVIDERS: PCP Family Medicine; Referring Provider Family Medicine; Visit Provider Family Medicine
DX: I10 Essential (primary) hypertension (principal); D64.9 Anemia, unspecified; E55.9 Vitamin D deficiency, unspecified
CPT/HCPCS: 36415; 80048; 80061; 82306; 82728; 83540; 85025

== ENCOUNTER → 2020-06-29 10:46 | Outpatient (CLI) | payer OTHER, SELFPAY ==
[2020-06-29 12:19] LABS: Anion Gap 7 (5-15); BUN 13 mg/dL (7-18); BUN/Creat Ratio 16.7 RATIO (10-20); Calcium,Total 8.3 mg/dL (8.5-10.1); Chloride 106 mmol/L (98-107); Creatinine, Serum 0.78 mg/dL (0.55-1.02); EST Glomerular Filtration Rate 84 mL/min (>60); Est Glom Filt Rate - Afr Amer 101 mL/min (>60); Glucose 92 mg/dL (74-106); Potassium 3.9 mmol/L (3.5-5.1); Sodium Level 139 mmol/L (136-145)
== END ==
LOC: MFPLAB 10:47
PROVIDERS: PCP Family Medicine; Referring Provider Family Medicine; Visit Provider Family Medicine
DX: I10 Essential (primary) hypertension (principal)
CPT/HCPCS: 36415; 80048

== ENCOUNTER → 2020-07-08 | Outpatient (CLI) | payer OTHER, SELFPAY | END | disposition home or self-care (01) | PROVIDERS: PCP Family Medicine; Visit Provider Family Medicine | DX: Z20.828 Contact with and (suspected) exposure to other viral communicable diseases (principal) | CPT/HCPCS: 87635; U0003 ==

== ENCOUNTER → 2020-09-18 13:33 | Outpatient (CLI) | payer OTHER, SELFPAY | LOC: MFPLAB 13:34 | PROVIDERS: PCP Family Medicine; Visit Provider Family Medicine | DX: N39.0 Urinary tract infection, site not specified (principal) | CPT/HCPCS: 87077; 87086; 87088; 87186 ==

== ENCOUNTER → 2020-10-05 | Outpatient (CLI) | payer OTHER, SELFPAY | END | disposition home or self-care (01) | PROVIDERS: PCP Family Medicine; Referring Provider Family Medicine; Visit Provider Family Medicine | DX: U07.1 COVID-19 (principal) | CPT/HCPCS: 87635; U0003 ==

== ENCOUNTER → 2021-01-14 10:01 | Outpatient (CLI) | payer OTHER, SELFPAY ==
--- NOTE | 2021-01-14 10:03 | ECHOD_ITS ---
Reason For Study: HTN Procedure This was a 2D Doppler, Color Flow transthoracic echocardiogram. Exam performed in department. Left Ventricle Normal LV size. Mild concentric left ventricular hypertrophy. Left ventricular systolic function is normal. The estimated ejection fraction is 65 %. No regional wall motion abnormalities noted. Right Ventricle Normal RV size. Normal systolic function. Atria Normal left atrium. Normal right atrium. Mitral Valve Normal mitral valve. Tricuspid Valve Normal tricuspid valve. Mild tricuspid valve insufficiency. Aortic Valve Trisinus/trileaflet aortic valve. Pulmonic Valve Normal pulmonic valve. Great Vessels Normal aortic root. The pulmonary artery is normal size. Normal inferior vena cava. Pericardium/Pleural No pericardial effusion. MMode/2D Measurements & Calculations LVIDd: 3.8 cm IVSd: 1.3 cm Ao root diam: 3.4 cm LVIDs: 2.5 cm LVPWd: 1.4 cm RVDd: 2.5 cm FS: 33.4 % LAV(MOD-bp): 36.0 ml LA A4 area: 14.9 cm2 LA dimension(2D): 3.6 cm LAV(MOD-bp) Indexed: 24.9 ml/m2 LAV(MOD-sp2): 32.9 ml LAV(MOD-sp4): 39.4 ml RA A4 area: 11.6 cm2 Time Measurements MV dec time: 0.19 sec Doppler Measurements & Calculations MV E max jayden: 76.7 cm/sec Lat Peak E' Jayden: 9.2 cm/sec Med Peak E' Jayden: 4.8 cm/sec MV A max jayden: 71.9 cm/sec E/E' lat: 8.4 E/E' med: 16.1 MV E/A: 1.1 Ao V2 max: 142.8 cm/sec LV V1 max: 87.5 cm/sec PA V2 max: 93.2 cm/sec Ao max P.2 mmHg LV V1 max P.1 mmHg PI end-d jayden: 75.3 cm/sec TR max jayden: 205.1 cm/sec TR max P.8 mmHg Interpretation Summary Normal LV size. Mild concentric left ventricular hypertrophy. Left ventricular systolic function is normal. The estimated ejection fraction is 65 %. Structurally normal valves. Ordering Physician: Rene Shelton Referring Physician: RAHUL SHELTON Performed By: Jazmine Mckinley RDCS, RVT
== END ==
LOC: CVS 10:02
PROVIDERS: PCP Family Medicine; Referring Provider Family Medicine; Visit Provider Family Medicine
DX: I10 Essential (primary) hypertension (principal)
CPT/HCPCS: 93306

== ENCOUNTER → 2021-01-18 07:58 | Outpatient (CLI) | payer OTHER, SELFPAY ==
[2021-01-18 10:31] LABS: PTHIN 47.8 pg/mL (18.4-80.1)
[2021-01-18 10:33] LABS: Vitamin D,25 Hydroxy 33.7 ng/mL
[2021-01-18 10:57] LABS: Anion Gap 6 (5-15); BUN 16 mg/dL (7-18); BUN/Creat Ratio 22.1 RATIO (10-20); Calcium,Total 8.6 mg/dL (8.5-10.1); Chloride 103 mmol/L (98-107); Cholesterol 160 mg/dL (200); Creatinine, Serum 0.72 mg/dL (0.55-1.02); EST Glomerular Filtration Rate 91 mL/min (>60); Est Glom Filt Rate - Afr Amer 110 mL/min (>60); Glucose 82 mg/dL (74-106); High Density Lipoprotein 59 mg/dL; Potassium 3.4 mmol/L (3.5-5.1); Sodium Level 139 mmol/L (136-145); Thyroid Stim Hormone (TSH) 1.36 uIU/mL (0.358-3.74); Triglycerides 144 mg/dL; Very Low Density Lipoprotein 29 mg/dL (5-40)
== END ==
LOC: MTLAB 07:59
PROVIDERS: PCP Family Medicine; Referring Provider Family Medicine; Visit Provider Family Medicine
DX: I10 Essential (primary) hypertension (principal); E83.51 Hypocalcemia
CPT/HCPCS: 36415; 80048; 80061; 82306; 83970; 84443

== ENCOUNTER → 2021-02-08 16:44 | Outpatient (CLI) | payer OTHER, SELFPAY ==
[2021-02-08 18:03] LABS: Hematocrit 40.4 % (37-47); Hemoglobin 12.6 g/dL (12.0-15.0); Mean Corp Hgb Conc 31.2 g/dL (32-36); Mean Corpuscular Hgb 27.1 pg (27.0-32.0); Mean Corpuscular Volume 86.9 fL (81-99); Mean Platelet Vol. 11.2 fl (6.2-12.0); Platelet Count 246 K/mm3 (150-450); Red Blood Count 4.65 M/mm3 (4.2-5.4); White Blood Count 8.8 K/mm3 (4.4-11.0)
[2021-02-08 18:31] LABS: Vitamin B12 553 pg/mL (211-911)
[2021-02-08 18:34] LABS: Ferritin 14 ng/mL (8-252); Iron 34 ug/dL (50-170)
[2021-02-08 18:57] LABS: Erythrocyte Sedimentation Rate 14 mm/hr (0-30)
[2021-02-11 16:23] LABS: Zinc, Plasma or Serum 52 ug/dL (44-115)
[2021-02-26 16:46] LABS: VITAMIN B6 10.1 ug/L (2.0-32.8)
== END ==
LOC: MFPLAB 16:44
PROVIDERS: PCP Family Medicine; Visit Provider Family Medicine
DX: L65.9 Nonscarring hair loss, unspecified (principal); D64.9 Anemia, unspecified
CPT/HCPCS: 36415; 82607; 82728; 83540; 84207; 84630; 85027; 85652

== ENCOUNTER → 2021-06-08 | Outpatient (CLI) | payer OTHER, SELFPAY | END | disposition home or self-care (01) | PROVIDERS: PCP Family Medicine; Visit Provider Family Medicine | DX: Z20.822 Contact with and (suspected) exposure to COVID-19 (principal) | CPT/HCPCS: 87635; U0005; U0003 ==

== ENCOUNTER → 2021-06-29 | Outpatient (CLI) | payer OTHER, SELFPAY | END | disposition home or self-care (01) | LOC: LABSPEC 10:26 | PROVIDERS: PCP Family Medicine; Referring Provider Family Medicine; Visit Provider Family Medicine | DX: Z71.89 Other specified counseling (principal) | CPT/HCPCS: 87635; U0005; U0003 ==

== ENCOUNTER → 2021-07-28 | Outpatient (CLI) | payer OTHER, SELFPAY | END | disposition home or self-care (01) | LOC: LABSPEC 17:49 | PROVIDERS: Visit Provider Family Medicine | DX: N39.0 Urinary tract infection, site not specified (principal) | CPT/HCPCS: 87077; 87086; 87088; 87186 ==

== ENCOUNTER → 2021-10-26 16:51 | Outpatient (CLI) | payer OTHER, SELFPAY ==
[2021-10-26 19:10] LABS: Anion Gap 7 (5-15); BUN 17 mg/dL (7-18); BUN/Creat Ratio 22.1 RATIO (10-20); Calcium,Total 8.6 mg/dL (8.5-10.1); Chloride 104 mmol/L (98-107); Creatinine, Serum 0.77 mg/dL (0.55-1.02); EST Glomerular Filtration Rate 84 mL/min (>60); Est Glom Filt Rate - Afr Amer 102 mL/min (>60); Follicle Stimulating Hormone 77.3 mIU/mL; Glucose 93 mg/dL (74-106); Luteinizing Hormone 59.8 mIU/mL; Potassium 3.4 mmol/L (3.5-5.1); Sodium Level 141 mmol/L (136-145); Thyroid Stim Hormone (TSH) 1.53 uIU/mL (0.358-3.74)
== END ==
LOC: MTLAB 16:52
PROVIDERS: PCP Registered Nurse; Referring Provider Family Medicine; Visit Provider Family Medicine
DX: I10 Essential (primary) hypertension (principal); Z78.0 Asymptomatic menopausal state
CPT/HCPCS: 36415; 80048; 83001; 83002; 84443

== ENCOUNTER 2022-01-28 08:31 | Outpatient (CLI) | payer OTHER, SELFPAY ==
[2022-01-28 10:10] LABS: Hematocrit 42.6 % (37-47); Hemoglobin 13.8 g/dL (12.0-15.0); Mean Corp Hgb Conc 32.4 g/dL (32-36); Mean Corpuscular Hgb 28.2 pg (27.0-32.0); Mean Corpuscular Volume 86.9 fL (81-99); Mean Platelet Vol. 11.1 fl (6.2-12.0); Platelet Count 267 K/mm3 (150-450); RBC Distribution Width CV 12.9 % (11.6-14.6); RBC Distribution Width SD 40.8 fl (35.1-43.9); White Blood Count 7.3 K/mm3 (4.4-11.0)
[2022-01-28 10:27] LABS: Erythrocyte Sedimentation Rate 33 mm/hr (0-30); Vitamin B12 583 pg/mL (211-911); Vitamin D,25 Hydroxy 35.9 ng/mL
[2022-01-28 10:32] LABS: Anion Gap 5 (5-15); BUN 15 mg/dL (7-18); BUN/Creat Ratio 16.3 RATIO (10-20); Calcium,Total 9.3 mg/dL (8.5-10.1); Chloride 106 mmol/L (98-107); Creatinine, Serum 0.92 mg/dL (0.55-1.02); EST Glomerular Filtration Rate 69 mL/min (>60); Est Glom Filt Rate - Afr Amer 83 mL/min (>60); Ferritin 58 ng/mL (8-252); Glucose 96 mg/dL (74-106); Iron 77 ug/dL (50-170); Potassium 3.8 mmol/L (3.5-5.1); Sodium Level 139 mmol/L (136-145); Thyroid Stim Hormone (TSH) 1.37 uIU/mL (0.358-3.74)
== END 2022-01-28 23:59 | disposition home or self-care (01) ==
LOC: MFPLAB 08:35
PROVIDERS: PCP Family Medicine; Referring Provider Family Medicine; Visit Provider Family Medicine
DX: R20.2 Paresthesia of skin (principal)
CPT/HCPCS: 36415; 80048; 82306; 82607; 82728; 83540; 84443; 85027; 85652

== ENCOUNTER → 2022-03-01 | Outpatient (CLI) | payer OTHER, SELFPAY ==
--- NOTE | 2022-03-01 09:23 | BI_ITS ---
MAMMOGRAPHY - BILATERAL SCREENING REASON FOR EXAM: Female, 51 years old. Routine annual screening examination. PERTINENT HISTORY: Non-contributory. TECHNIQUE: Digital bilateral breast daniel (3D mammographic acquisition) in the CC and MLO projections. 2-D mediolateral oblique (MLO) and craniocaudad (CC) views of both breasts were obtained. CAD: Full Field Digital Mammography with Computer Added Detection was performed. COMPARISON: Comparison is made with prior examination dated 01/06/2018. FINDINGS: Breast Composition: The breasts are heterogeneously dense, which may obscure small masses. There are no dominant masses or suspicious calcifications. Stable small benign-appearing bilateral axillary lymph nodes. No other significant abnormalities are identified. There has been no significant change since the prior study. BI/SCRN MAMM (CAD)W/DANIEL BILAT IMPRESSION: Stable bilateral screening mammogram. Yearly follow-up mammogram recommended. (A) ASSESSMENT CATEGORY: BIRADS Category 2: Benign. A letter regarding these results will be sent to the patient by the facility within 30 days. Approximately 10% of breast cancers are not detected by mammography. A normal mammogram should not delay biopsy of a clinically suspicious abnormality. [id number] Electronically Signed: Moise Sandy MD at 11:09 EDT ,
== END | disposition home or self-care (01) ==
PROVIDERS: PCP Family Medicine; Referring Provider Family Medicine; Visit Provider Family Medicine
DX: Z12.31 Encounter for screening mammogram for malignant neoplasm of breast (principal)
CPT/HCPCS: 77063; 77067

== ENCOUNTER → 2022-03-16 | Outpatient (CLI) | payer OTHER, SELFPAY ==
--- NOTE | 2022-03-16 14:15 | PFT ---
INTRODUCTION: The patient is a 51-year-old female that presents for pulmonary function studies secondary to a diagnosis of shortness of breath. Respiratory therapy reported good patient effort. Bronchodilators were used during testing. INTERPRETATION: Forced expiration spirometry demonstrates no evidence of a large airways obstructive ventilatory defect. There was no significant response to aerosolized bronchodilators. Spirograms are of good quality and plateau normally. Body plus tomography was performed and reveals lung volumes to be within normal limits. Diffusing capacity by single breath CO is reduced at 41% of predicted. IMPRESSION: Isolated moderate reduction in diffusing capacity, which could be related to an underlying pulmonary vascular disorder such as pulmonary hypertension.
== END | disposition home or self-care (01) ==
PROVIDERS: PCP Family Medicine; Visit Provider Family Medicine
DX: R06.02 Shortness of breath (principal)
CPT/HCPCS: 94060; 94726; 94729

== ENCOUNTER → 2022-06-06 | Outpatient (CLI) | payer OTHER, SELFPAY | END | disposition home or self-care (01) | LOC: LABSPEC 12:04 | PROVIDERS: PCP Family Medicine; Referring Provider Family Medicine; Visit Provider Family Medicine | DX: N39.0 Urinary tract infection, site not specified (principal) | CPT/HCPCS: 87077; 87086; 87088; 87186 ==

== ENCOUNTER → 2022-06-24 | Outpatient (CLI) | payer OTHER, SELFPAY ==
--- NOTE | 2022-06-24 08:00 | LES_PTH ---
PATIENT: KRISTI MARIE LOC: [facility] U#:[id number] AGE/SX: 52/F ROOM: RE06/24/[address]: Dr. Arley Ayala MD : 1970 BED: DIS: 06/24/2022 SPEC #: [id number] RECD: 06/24/22 10:17 STATUS: GERMÁN VERMA #: [id number] WANG: 06/24/22 08:[address]: Arley Ayala DEPT: SURGICAL PATHOLOGY RECD BY: Nell Posey Tissues: Skin of arm Procedures: Surgery Specimen Level IV HEADER OPERATION: Punch biopsy arm PRE-OP DIAGNOSIS: ? Melanoma TISSUE SUBMITTED: Arm MICROSCOPIC DIAGNOSIS Arm lesion, punch biopsy: Dermatofibroma. See comment. IZA:felipe 06/27/2022 COMMENT Melanocytic lesion is not identified. Clinical correlation and appropriate follow up are necessary. MICROSCOPIC DESCRIPTION Slides are reviewed. GROSS DESCRIPTION Received in fixative is one container labeled with the patient's name and designated left arm. The specimen consists of a punch biopsy of lambert-brown skin measuring 0.5 cm in diameter and up to 0.3 cm in thickness. The specimen is inked, bisected and submitted entirely in one cassette. / SJ:rg 06/24/2022 TC:1 [facility]: [id number]
== END | disposition home or self-care (01) ==
LOC: LABSPEC 10:19
PROVIDERS: PCP Family Medicine; Visit Provider Family Medicine
DX: D23.62 Other benign neoplasm of skin of left upper limb, including shoulder (principal)
CPT/HCPCS: 88305

== ENCOUNTER → 2022-09-21 | Outpatient (CLI) | payer OTHER, SELFPAY ==
--- NOTE | 2022-09-21 15:57 | US_ITS ---
STUDY: RENAL ULTRASOUND - COMPLETE REASON FOR EXAM: Female, 52 years old. UTI TECHNIQUE: Ultrasound evaluation of the kidneys was performed with real-time and static brenner-scale imaging. COMPARISON: CT 08/23/2016 FINDINGS: Incidental finding of a right adnexal mass which may be a fibroid. RIGHT KIDNEY: Normal location of the right kidney, which is normal in size. The right kidney measures 9.3 x 4.7 cm. There is a normal cortex of the right kidney. The renal cortex measures 1.3 cm. There is no right renal mass or cyst. There are no right renal calculi. There is no right hydronephrosis. DISTAL RIGHT URETER: There is non-visualization of the distal right ureter. There is no demonstrated right ureterovesical junction calculus. There is a visualized right ureteral jet. LEFT KIDNEY: Normal location of the left kidney, which is normal in size. The left kidney measures 9.3 x 5.2 cm. There is a normal cortex of the left kidney. The renal cortex measures 1.8 cm. There is no left renal mass or cyst. There are no left renal calculi. There is no left hydronephrosis. DISTAL LEFT URETER: There is non-visualization of the distal left ureter. There is no demonstrated left ureterovesical junction calculus. There is a visualized left ureteral jet. AORTA: There is no elongation or tortuosity of the abdominal aorta. I.V.C.: The IVC is patent. BLADDER: The distended urinary bladder has a volume of 104 ml. The empty urinary bladder has a volume of 26 ml. There is a normal wall thickness of the distended urinary bladder. There is no demonstrated mass within the urinary bladder. There are no demonstrated bladder calculi. US/Kidney and Bladder IMPRESSION: No acute findings of this ultrasound of the kidneys and urinary bladder. Incidental finding of a right adnexal mass which may be a fibroid. Electronically Signed: Antonio Beltran MD at 17:00 EST ,
== END | disposition home or self-care (01) ==
LOC: US 15:55
PROVIDERS: PCP Family Medicine; Referring Provider Urology; Visit Provider Urology
DX: N39.0 Urinary tract infection, site not specified (principal)
CPT/HCPCS: 76770

== ENCOUNTER → 2022-10-05 | Outpatient (CLI) | payer OTHER, SELFPAY ==
[2022-10-05 18:13] LABS: Anion Gap 7 (5-15); BUN 20 mg/dL (7-18); BUN/Creat Ratio 24.4 RATIO (10-20); Calcium,Total 9.5 mg/dL (8.5-10.1); Chloride 103 mmol/L (98-107); Creatinine, Serum 0.82 mg/dL (0.55-1.02); EST Glomerular Filtration Rate 78 mL/min (>60); Est Glom Filt Rate - Afr Amer 95 mL/min (>60); Glucose 94 mg/dL (74-106); Iron 68 ug/dL (50-170); Potassium 3.8 mmol/L (3.5-5.1); Sodium Level 139 mmol/L (136-145)
== END | disposition home or self-care (01) ==
LOC: MFPLAB 14:56
PROVIDERS: PCP Family Medicine; Referring Provider Family Medicine; Visit Provider Family Medicine
DX: I10 Essential (primary) hypertension (principal)
CPT/HCPCS: 36415; 80048; 83540

== ENCOUNTER → 2022-10-10 | Outpatient (CLI) | payer OTHER, SELFPAY ==
--- NOTE | 2022-10-10 15:01 | US_ITS ---
EXAM: US PELVIS TRANSVAGINAL CLINICAL INDICATION: ABN IMAGE TECHNIQUE: Transvaginal pelvic ultrasound was performed with grayscale and color Doppler imaging. Transvaginal imaging was used for better evaluation of the endometrium and adnexa. This report was created using [employer] report generation technology. COMPARISON: Renal ultrasound from 09/21/2022. FINDINGS: UTERUS/CERVIX: Uterus: Enlarged, measuring 11.0 x 7.2 x 6.1 cm, with 2 large fibroids in the myometrium measuring 6.7 and 3.9 cm. The larger fibroid is somewhat exophytic and accounts for the incidental finding on renal ultrasound. Endometrium: 7 mm. Anteverted. RIGHT OVARY: The right ovary is not visualized due to the enlarged uterus. LEFT OVARY: The left ovary is not visualized due to the enlarged uterus. FREE FLUID: None. BLADDER: Empty bladder which cannot be evaluated with this probe. US/Pelvic (Non ) IMPRESSION: No acute findings in the pelvis. Enlarged, multi fibroid uterus. The larger fibroid is somewhat exophytic and accounts for the incidental finding on renal ultrasound. Electronically Signed: Antonio Gomez MD at 1:40 EST ,
== END | disposition home or self-care (01) ==
LOC: US 14:58
PROVIDERS: PCP Family Medicine; Referring Provider Urology; Visit Provider Urology
DX: D25.9 Leiomyoma of uterus, unspecified (principal); N85.2 Hypertrophy of uterus
CPT/HCPCS: 76856

== ENCOUNTER 2022-10-13 08:53 | Day surgery (SDC) | payer OTHER, SELFPAY ==
[2022-10-13] VITALS (7 sets, daily range): BP systolic 122–152; BP diastolic 77–99; PULSE 60–70; RESP 16–18; TEMP 36.1–36.8; O2SAT 92–98; BMI 30.2
[2022-10-13] MEDS: Lactated Ringers 1,000 ML 15 ML IV (09:34)
--- NOTE | 2022-10-13 11:19 | DCINST_ITS ---
Discharge Instructions Diet Discharge Diet: No restrictions Activity Discharge Activity: Return to Normal Activity May resume sexual activity in: No Restrictions Dressing / Incision Call your doctor if you observe: Fever of 101 or Higher, Inability to urinate and Inability to have a bowel movement Follow Up Care Please Follow Up With: Oxana Bay MD When: call office for appt in 3-4 weeks Test Results: Test results from this visit will be discussed in further detail at your follow- up appointment, if applicable. Discharge Plan Admission Attending Provider: Oxana Bay Primary Care Provider: Rene Ayala Discharge Orders/Prescriptions Prescriptions: Continued amitriptyline 25 MG tablet 25 mg PO QHS lisinopril-hydrochlorothiazide [Zestoretic] 1 TABLET tablet 1 tab PO QHS labetalol 200 mg Tablet 400 mg PO QHS amlodipine 10 mg Tablet 10 mg PO QHS hydrochlorothiazide 25 mg Tablet 25 mg PO QHS Referrals / Follow Up: Rene Ayala MD [Primary Care Provider] - Disposition Disposition (needs filled in before D/C Order can be placed): Home, Self Care
--- NOTE | 2022-10-13 11:20 | PCM.OPRPT ---
Report of Operation Date of Procedure: 10/13/22 Pre-Operative Diagnosis: urinary tract infections, urinary urgency Post-Operative Diagnosis: same Surgery/Procedure Performed:: cystoscopy and pelvic exam under anesthesia Surgeon: Oxana Bay Type of Anesthesia: MAC Specimen's removed: none Description of Procedure: The patient is a 52-year-old female who has had issues with recurrent urinary tract infections and was on able to undergo a cystoscopy in the office for evaluation. She was taken to the operating room and placed on the operating room table. Anesthesia monitored the head, neck, airway, IV access and vital signs throughout the case. Once anesthesia was appropriately administered, the patient was placed into dorsal lithotomy position and was prepped and draped in usual sterile fashion. A pelvic examination revealed the only abnormality to be a mild uterine prolapse. The cystoscope was then inserted through the urethra under direct visualization into the urinary bladder. The bladder mucosa was visualized in its entirety revealing no evidence of mass, erythema, foreign body or other abnormality. At this time the patient's bladder was emptied and the cystoscope was removed. The patient was awakened and taken to the recovery room in good condition. There were no complications during this procedure. Grafts/Implants Used: none Complications none Admit VTE Documentation VTE Present on Admission: No VTE Pharm Prophylaxis ordered?: No Reason prophylaxis not ordered:: Treatment Not Indicated
== END 2022-10-13 13:02 | disposition home or self-care (01) ==
LOC: SDC 08:54 → AC 08:55
PROVIDERS: PCP Family Medicine; Referring Provider Urology; Visit Provider Urology
PROC: 0TJB8ZZ Inspection of Bladder, Via Natural or Artificial Opening Endoscopic (ICD-10-PCS; CPT 57410; principal; 2022-10-13 10:25)
DX: N39.46 Mixed incontinence (principal); R35.1 Nocturia; Z87.440 Personal history of urinary (tract) infections; I10 Essential (primary) hypertension; Z79.899 Other long term (current) drug therapy
CPT/HCPCS: 52000; 00910; J7120; J2405

== ENCOUNTER → 2023-01-02 | Outpatient (CLI) | payer OTHER, SELFPAY ==
[2023-01-02 17:34] LABS: Hematocrit 44.4 % (37-47); Hemoglobin 14.3 g/dL (12.0-15.0); Mean Corp Hgb Conc 32.2 g/dL (32-36); Mean Corpuscular Hgb 28.1 pg (27.0-32.0); Mean Corpuscular Volume 87.2 fL (81-99); Mean Platelet Vol. 11.5 fl (6.2-12.0); Platelet Count 201 K/mm3 (150-450); RBC Distribution Width SD 41.5 fl (35.1-43.9); Red Blood Count 5.09 M/mm3 (4.2-5.4); White Blood Count 9.8 K/mm3 (4.4-11.0)
[2023-01-02 18:13] LABS: Vitamin B12 444 pg/mL (211-911); Vitamin D,25 Hydroxy 21.4 ng/mL
[2023-01-02 18:16] LABS: ALB/GLOB Ratio 0.8 RATIO (0.9-2.4); AST(SGOT) 27 U/L (15-37); Alanine Aminotransfer ALT/SGPT 46 U/L (13-56); Albumin, Serum 3.6 g/dL (3.2-5.0); Alkaline Phosphatase 94 U/L (45-117); Anion Gap 8 (5-15); BUN 17 mg/dL (7-18); BUN/Creat Ratio 17.2 RATIO (10-20); Calcium,Total 9.2 mg/dL (8.5-10.1); Chloride 103 mmol/L (98-107); Creatinine, Serum 0.99 mg/dL (0.55-1.02); EST Glomerular Filtration Rate 63 mL/min (>60); Est Glom Filt Rate - Afr Amer 76 mL/min (>60); Globulin 4.3 g/dL (2.2-4.2); Glucose 90 mg/dL (74-106); Iron 68 ug/dL (50-170); Potassium 3.4 mmol/L (3.5-5.1); Protein, Total 7.9 g/dL (6.4-8.2); Sodium Level 140 mmol/L (136-145); Thyroid Stim Hormone (TSH) 0.75 uIU/mL (0.358-3.74)
== END | disposition home or self-care (01) ==
LOC: MFPLAB 14:48
PROVIDERS: PCP Family Medicine; Visit Provider Family Medicine
DX: R53.83 Other fatigue (principal)
CPT/HCPCS: 36415; 80053; 82306; 82607; 82746; 83540; 84443; 85027

== ENCOUNTER → 2023-01-31 | Outpatient (CLI) | payer OTHER, SELFPAY ==
[2023-01-31 13:43] LABS: Anion Gap 4 (5-15); BUN 11 mg/dL (7-18); BUN/Creat Ratio 12.7 RATIO (10-20); Chloride 105 mmol/L (98-107); Creatinine, Serum 0.87 mg/dL (0.55-1.02); EST Glomerular Filtration Rate 73 mL/min (>60); Est Glom Filt Rate - Afr Amer 88 mL/min (>60); Glucose 75 mg/dL (74-106); Potassium 3.8 mmol/L (3.5-5.1); Sodium Level 138 mmol/L (136-145)
[2023-01-31 13:44] LABS: Protein, Urine (Random) 14.7 mg/dL (<11.9); Protein:Creat Ratio 283 mg/g CRE (0-200)
== END | disposition home or self-care (01) ==
LOC: LAB 11:49
PROVIDERS: PCP Family Medicine; Referring Provider Internal Medicine Nephrology; Visit Provider Internal Medicine Nephrology
DX: I10 Essential (primary) hypertension (principal)
CPT/HCPCS: 36415; 80048; 82570; 84156

== ENCOUNTER → 2023-05-08 | Outpatient (CLI) | payer OTHER, SELFPAY ==
--- NOTE | 2023-05-08 13:34 | BI_ITS ---
MAMMOGRAPHY - BILATERAL SCREENING REASON FOR EXAM: Female, 52 years old. Routine annual screening examination. PERTINENT HISTORY: Non-contributory. TECHNIQUE: Digital bilateral breast daniel (3D mammographic acquisition) in the CC and MLO projections. 2-D mediolateral oblique (MLO) and craniocaudad (CC) views of both breasts were obtained. CAD: Full Field Digital Mammography with Computer Added Detection was performed. COMPARISON: Comparison is made with prior study dated March 01, 2022 and January 06, 2018. FINDINGS: Breast Composition: The breasts are heterogeneously dense, which may obscure small masses. There are no dominant masses or suspicious calcifications. Stable small benign appearing bilateral axillary lymph nodes. No other significant abnormalities are identified. There has been no significant change since the prior study. BI/SCRN MAMM (CAD)W/DANIEL BILAT IMPRESSION: Stable bilateral screening mammogram. Yearly follow-up mammogram recommended. (A) ASSESSMENT CATEGORY: BIRADS Category 2: Benign. A letter regarding these results will be sent to the patient by the facility within 30 days. Approximately 10% of breast cancers are not detected by mammography. A normal mammogram should not delay biopsy of a clinically suspicious abnormality. [id number] Electronically Signed: Moise Sandy MD at 15:35 EDT ,
--- NOTE | 2023-05-08 14:05 | US_ITS ---
STUDY: ULTRASOUND OF THE FEMALE PELVIS - COMPLETE REASON FOR EXAM: Female, 52 years old. Leiomyoma of uterus LMP: TECHNIQUE: Transabdominal and Transvaginal TECHNICAL QUALITY: Adequate. COMPARISON: CT abdomen and pelvis August 23, 2016 ultrasound October 10, 2022 FINDINGS: The uterus is anteverted and is in a midline position. The uterus measures 10.2 x 6 x 5.8 cm. Normal uterine cervix. The endometrium is not well visualized, measures 4.5 mm in thickness, and is hyperechoic. There is no demonstrated endometrial mass. There is a visualized 3.6 x 3.2 x 2.6 cm anteriorly located mass seen in the anterolateral aspect of the uterus. There is a 5.8 x 5.7 x 4.5 cm posteriorly located fibroid. There is a suggestion of small fibroids in the lower uterine segment that may measure 4 to 7 mm. I.U.D. - The patient does not have an I.U.D. The right ovary is nonvisualized. Likely due to overlying bowel gas. The left ovary is visualized. The left ovary measures 1.7 x 1.6 x 0.8 cm. cm. There is no left ovarian cyst or ovarian mass. There is no visualized left adnexal mass or complex lesion. There is normal arterial and normal venous vascularity. No torsion. There is no fluid in the cul-de-sac. The bladder is partially distended on this study. Polycystic ovary disease: No. US/Pelvic (Non ) IMPRESSION: Mildly enlarged uterus with multiple fibroids. Allowing for differences in technique fairly similar to the prior study. Recommend continued follow-up. Electronically Signed: Lizbet Sparks MD at 2:08 EDT ,
== END | disposition home or self-care (01) ==
PROVIDERS: PCP Family Medicine; Referring Provider Obstetrics & Gynecology; Visit Provider Obstetrics & Gynecology
DX: Z12.31 Encounter for screening mammogram for malignant neoplasm of breast (principal)
CPT/HCPCS: 76830; 76856; 77063; 77067

== ENCOUNTER → 2023-05-17 | Outpatient (CLI) | payer OTHER, SELFPAY ==
[2023-05-22 14:14] LABS: HPV APTIMA, High Risk Negative (Negative)
== END | disposition home or self-care (01) ==
PROVIDERS: PCP Family Medicine; Referring Provider Obstetrics & Gynecology; Visit Provider Obstetrics & Gynecology
DX: Z12.4 Encounter for screening for malignant neoplasm of cervix (principal)
CPT/HCPCS: 87624; 88175; G0145

== ENCOUNTER → 2023-05-19 | Outpatient (CLI) | payer OTHER, SELFPAY ==
--- NOTE | 2023-05-19 09:55 | US_ITS ---
STUDY: ULTRASOUND BREAST - RIGHT REASON FOR EXAM: Female, 52 years old. Palpable lump TECHNIQUE: Axial and longitudinal images of the RIGHT breast were performed with a high resolution ultrasound transducer. # OF IMAGES: 26 COMPARISON: Mammogram from 05/08/2023 FINDINGS: RIGHT Breast: Focused ultrasound in the lateral right breast where patient complains of palpable lump. Dense fibroglandular tissue noted. No suspicious shadowing solid lesion, architectural distortion, or clustered shadowing calcifications. There are bands of fibrous tissue which correspond to some of the palpable abnormalities noted by the patient. There is no suspicious subcutaneous fluid collection or dilated ducts. US/Breast Limited Unilateral IMPRESSION: No suspicious sonographic findings ASSESSMENT CATEGORY: BIRADS Category 1: Negative. A letter regarding these results will be sent to the patient by the facility within 30 days. Electronically Signed: Melvin Suresh MD at 11:26 EDT ,
== END | disposition home or self-care (01) ==
LOC: OPBI 09:53
PROVIDERS: PCP Family Medicine; Visit Provider Obstetrics & Gynecology
DX: N63.10 Unspecified lump in the right breast, unspecified quadrant (principal)
CPT/HCPCS: 76642

== ENCOUNTER → 2023-08-16 | Outpatient (CLI) | payer OTHER, SELFPAY ==
--- NOTE | 2023-08-16 08:43 | EKG12_ITS ---
Test Reason : PRE-OP Blood Pressure : / mmHG Vent. Rate : 064 BPM Atrial Rate : 064 BPM P-R Int : 168 ms QRS Dur : 086 ms QT Int : 452 ms P-R-T Axes : 008 106 100 degrees QTc Int : 466 ms Normal sinus rhythm Nonspecific T wave abnormality Abnormal ECG Confirmed by VINAYAK TROY, RIDGE ([id number]), health editor AIDA MARCELO ([id number]) on 08/17/2023 6:53:35 AM Referred By: Ijeoma Escalante Confirmed By:RIDGE LICEA MD
[2023-08-16 10:20] LABS: Cholesterol 188 mg/dL (200); High Density Lipoprotein 53 mg/dL; Triglycerides 205 mg/dL; Very Low Density Lipoprotein 41 mg/dL (5-40)
[2023-08-16 10:23] LABS: Iron 56 ug/dL (50-170)
[2023-08-16 15:45] LABS: Hemoglobin A1c 5.4 % (3.8-5.6)
== END | disposition home or self-care (01) ==
PROVIDERS: PCP Family Medicine; Referring Provider Obstetrics & Gynecology; Visit Provider Obstetrics & Gynecology
DX: I10 Essential (primary) hypertension (principal); E66.8 Other obesity; Z68.30 Body mass index [BMI] 30.0-30.9, adult
CPT/HCPCS: 36415; 80061; 83036; 83540; 93005

== ENCOUNTER → 2023-08-21 | Outpatient (CLI) | payer OTHER, SELFPAY ==
[2023-08-21 17:53] LABS: Hematocrit 44.3 % (37-47); Hemoglobin 14.3 g/dL (12.0-15.0); Mean Corp Hgb Conc 32.3 g/dL (32-36); Mean Corpuscular Hgb 27.9 pg (27.0-32.0); Mean Corpuscular Volume 86.5 fL (81-99); POSITIVE COUNT YES; RBC Distribution Width CV 12.7 % (11.6-14.6); RBC Distribution Width SD 39.8 fl (35.1-43.9); Red Blood Count 5.12 M/mm3 (4.2-5.4); White Blood Count 8.1 K/mm3 (4.4-11.0)
[2023-08-21 18:29] LABS: Vitamin B12 425 pg/mL (211-911); Vitamin D,25 Hydroxy 33.3 ng/mL
[2023-08-21 18:39] LABS: Anion Gap -1 (5-15); BUN 18 mg/dL (7-18); BUN/Creat Ratio 21.8 RATIO (10-20); Calcium,Total 8.6 mg/dL (8.5-10.1); Chloride 108 mmol/L (98-107); Creatinine, Serum 0.82 mg/dL (0.55-1.02); EST Glomerular Filtration Rate 77 mL/min (>60); Est Glom Filt Rate - Afr Amer 93 mL/min (>60); Ferritin 32 ng/mL (8-252); Glucose 92 mg/dL (74-106); Iron 58 ug/dL (50-170); Potassium 3.6 mmol/L (3.5-5.1); Sodium Level 136 mmol/L (136-145); Thyroid Stim Hormone (TSH) 1.42 uIU/mL (0.358-3.74)
[2023-08-21 19:33] LABS: Scan Indicated on CBC? Y/N YES- FLAGS NOTED
[2023-08-21 19:34] LABS: Differential Comment SCANNED
== END | disposition home or self-care (01) ==
LOC: MFPLAB 16:20
PROVIDERS: PCP Family Medicine; Visit Provider Family Medicine
DX: D64.9 Anemia, unspecified (principal); E55.9 Vitamin D deficiency, unspecified; I10 Essential (primary) hypertension
CPT/HCPCS: 36415; 80048; 82306; 82607; 82728; 83540; 84443; 85027

== ENCOUNTER 2023-08-23 09:56 | Outpatient (RCR) | payer OTHER, SELFPAY | END 2023-08-29 23:59 | LOC: NS 09:56 | PROVIDERS: PCP Family Medicine; Referring Provider Obstetrics & Gynecology; Visit Provider Obstetrics & Gynecology | DX: Z71.3 Dietary counseling and surveillance (principal); E66.9 Obesity, unspecified; Z68.30 Body mass index [BMI] 30.0-30.9, adult | CPT/HCPCS: 97802 ==

== ENCOUNTER 2023-09-27 08:00 | Outpatient (RCR) | payer OTHER, SELFPAY | END 2023-09-28 23:59 | LOC: NS 08:00 | PROVIDERS: PCP Family Medicine; Referring Provider Obstetrics & Gynecology; Visit Provider Obstetrics & Gynecology | DX: Z71.3 Dietary counseling and surveillance (principal); E66.9 Obesity, unspecified; Z68.29 Body mass index [BMI] 29.0-29.9, adult | CPT/HCPCS: 97803 ==

== ENCOUNTER → 2023-10-04 | Outpatient (CLI) | payer OTHER, SELFPAY ==
--- NOTE | 2023-10-04 06:20 | ECHOD_ITS ---
Reason For Study: ABN EKG Procedure This was a 2D Doppler, Color Flow transthoracic echocardiogram. Exam performed in department. Left Ventricle Normal LV size. Mild concentric left ventricular hypertrophy. The left ventricular ejection fraction is 65 %. Normal diastololic function. Right Ventricle Normal right ventricle. Atria The left and right atria are normal. Cannot exclude tiny PFO. Mitral Valve The mitral valve is structurally normal. No prolapse or stenosis seen. Tricuspid Valve Normal tricuspid valve. Aortic Valve Mild diffuse aortic valve thickening. Pulmonic Valve The pulmonic valve is not well visualized. Great Vessels Normal sized aortic root. Pericardium/Pleural No pericardial effusion. MMode/2D Measurements & Calculations LVIDd: 3.9 cm IVSd: 1.2 cm Ao root diam: 2.9 cm LVIDs: 2.9 cm LVPWd: 1.2 cm RVDd: 2.1 cm FS: 25.2 % LAV(MOD-bp): 27.9 ml LVAd ap4: 20.9 cm2 LVAd ap2: 17.7 cm2 LAV(MOD-bp) Indexed: 19.2 ml/m2 LVLd ap4: 6.6 cm LVLd ap2: 7.1 cm LAV(MOD-sp2): 25.2 ml EDV(MOD-sp4): 57.5 ml EDV(MOD-sp2): 37.7 ml LAV(MOD-sp4): 30.2 ml EDV(sp4-el): 56.0 ml EDV(sp2-el): 37.2 ml LVAs ap4: 11.7 cm2 LVAs ap2: 9.7 cm2 LVLs ap4: 5.5 cm LVLs ap2: 5.9 cm ESV(MOD-sp4): 22.2 ml ESV(MOD-sp2): 14.7 ml ESV(sp4-el): 21.0 ml ESV(sp2-el): 13.4 ml EF(MOD-sp4): 61.4 % EF(MOD-sp2): 61.1 % EF(sp4-el): 62.6 % SV(MOD-sp4): 35.3 ml SV(MOD-sp2): 23.1 ml SV(sp4-el): 35.1 ml LA dimension(2D): 3.6 cm LA A4 area: 12.9 cm2 RA A4 area: 13.2 cm2 TAPSE: 1.7 cm Time Measurements MV dec time: 0.17 sec Doppler Measurements & Calculations MV E max jayden: 61.9 cm/sec Lat Peak E' Jayden: 7.6 cm/sec Med Peak E' Jayden: 6.3 cm/sec MV A max jayden: 61.2 cm/sec E/E' lat: 8.2 E/E' med: 9.9 MV E/A: 1.0 MV V2 max: 75.0 cm/sec MV P1/2t max jayden: 68.9 cm/sec Ao V2 max: 120.1 cm/sec MV max P.2 mmHg MV P1/2t: 57.9 msec Ao max P.8 mmHg MV V2 mean: 36.3 cm/sec MV dec slope: 348.2 cm/sec2 Ao V2 mean: 87.5 cm/sec MV mean P.69 mmHg Ao mean P.4 mmHg MV V2 VTI: 17.3 cm MVA(P1/2t): 3.8 cm2 Ao V2 VTI: 29.1 cm AV (velocity ratio): 0.64 LV V1 max: 82.3 cm/sec PA V2 max: 87.1 cm/sec LV V1 max P.7 mmHg PA V2 mean: 62.2 cm/sec LV V1 mean P.5 mmHg LV V1 mean: 57.3 cm/sec LV V1 VTI: 18.6 cm ECHO/Echo Complete Interpretation Summary Mild concentric left ventricular hypertrophy. The left ventricular ejection fraction is 65 %. Cannot exclude tiny PFO. Mild diffuse aortic valve thickening. Ordering Physician: Yee Vega Referring Physician: Arley Ayala Performed By: Martha Bah, MARIO, RVT
--- NOTE | 2023-10-04 10:09 | STRESSREP ---
Stress Test Report Date: 10/04/2023 Procedure: Exercise tolerance test/imaging study Indications: Dyspnea on exertion Consent: Per the patient Procedure: The patient exercised on a Cliff protocol for 8 minutes and 30 seconds achieving a peak heart rate of 139 bpm (82% predicted maximal heart rate) with a peak blood pressure 160/98 mmHg and a peak MET capacity of 10.1 METs. The baseline ECG demonstrated sinus rhythm. The peak exercise ECG demonstrated ST-T wave changes inferior leads that are borderline suggestive of ischemia. There were no cardiac dysrhythmias pretest, during exercise, or recovery. The functional capacity was considered average. There was no complaint of chest discomfort during exercise or recovery. The examination was discontinued secondary to fatigue and leg discomfort. The patient was injected with 11.3 mCi of technetium 99m Cardiolite and subsequently rest SPECT Cardiolite nuclear imaging was obtained in the horizontal long, vertical long, and short axis views. Post-exercise, the patient was injected with 33.9 mCi of technetium 99m Cardiolite and subsequently stress SPECT Cardiolite nuclear imaging was obtained in the horizontal long, vertical long, and short axis views. A gated Cardiolite study at peak stress was obtained. Rest and stress SPECT Cardiolite nuclear imaging status post realignment, normalization, and attenuation correction, demonstrates the appearance of relative uniform tracer uptake and myocardial perfusion appearing within normal limits. There is end systolic thickening and brightening. The gated Cardiolite study demonstrates myocardial thickening and inward wall motion. The reported LVEF is 79%. Impression: 1. Technically adequate (percent predicted maximal heart rate greater than 85%) exercise tolerance test 2. Peak exercise ECG changes suggestive of ischemia however nuclear images negative as noted below 3. There were no cardiac dysrhythmias pretest, during exercise, or recovery 4. Rest and stress SPECT Cardiolite nuclear imaging demonstrate relative uniform tracer uptake and myocardial perfusion appearing within normal limits. 5. The gated Cardiolite study reports an LVEF of 79%. This note was generated with [employer]ation software. It may contain incorrect words, spelling, and punctuation that were not noted in checking the note before signing.
== END | disposition home or self-care (01) ==
LOC: CVS 06:19
PROVIDERS: PCP Family Medicine; Referring Provider Internal Medicine Cardiovascular Disease; Visit Provider Internal Medicine Cardiovascular Disease
DX: R06.09 Other forms of dyspnea (principal); R94.31 Abnormal electrocardiogram [ECG] [EKG]; I1A.0 Resistant hypertension
CPT/HCPCS: 78452; 93017; 93306; A9500; A4216

== ENCOUNTER → 2023-10-11 | Outpatient (CLI) | payer OTHER, SELFPAY ==
--- NOTE | 2023-10-11 08:39 | BI_ITS ---
MAMMOGRAPHY - BILATERAL DIAGNOSTIC REASON FOR EXAM: Female, 53 years old. Painful lump in the upper-outer quadrant of the right breast. PERTINENT HISTORY: Non-contributory. TECHNIQUE: Digital bilateral breast vandana (3D mammographic acquisition) in the CC and MLO projections. 2-D mediolateral oblique (MLO) and craniocaudad (CC) views of both breasts were obtained. CAD: Full Field Digital Mammography with Computer Added Detection was performed. COMPARISON: Comparison is made with prior study dated May 08, 2023 and March 01, 2022.. FINDINGS: Breast Composition: The breasts are heterogeneously dense, which may obscure small masses. There are no dominant masses or suspicious calcifications. Stable small benign-appearing bilateral axillary nodes. No other significant abnormalities are identified. There has been no significant change since the prior study. BI/DIAG MAMM W/CAD, BILAT IMPRESSION: Stable bilateral diagnostic mammogram. With the patient''s history of a palpable lump in the upper-outer quadrant of the right breast, correlation with ultrasound is recommended. ASSESSMENT CATEGORY: BIRADS Category 0: Incomplete. Need additional imaging evaluation. A letter regarding these results will be sent to the patient by the facility within 30 days. Approximately 10% of breast cancers are not detected by mammography. A normal mammogram should not delay biopsy of a clinically suspicious abnormality. Electronically Signed: Moise Sandy MD at 10:53 EST ,
--- NOTE | 2023-10-11 08:39 | US_ITS ---
STUDY: ULTRASOUND BREAST - RIGHT REASON FOR EXAM: Female, 53 years old. Palpable lump in the right breast. TECHNIQUE: Axial and longitudinal images of the RIGHT breast were performed with a high resolution ultrasound transducer. # OF IMAGES: 43 COMPARISON: Comparison is made with prior mammogram dated October 11, 2023. Comparison is also made with prior sonogram dated May 19, 2023. FINDINGS: RIGHT Breast: The lateral half of the right breast was examined with ultrasound. Dense fibroglandular tissue. No sonographic abnormality is seen. US/Breast Limited Unilateral IMPRESSION: No sonographic abnormality is seen. ASSESSMENT CATEGORY: BIRADS Category 1: Negative. A letter regarding these results will be sent to the patient by the facility within 30 days. Electronically Signed: Moise Sandy MD at 13:55 EST ,
== END | disposition home or self-care (01) ==
LOC: OPBI 08:37
PROVIDERS: PCP Family Medicine; Referring Provider Obstetrics & Gynecology; Visit Provider Obstetrics & Gynecology
DX: N63.11 Unspecified lump in the right breast, upper outer quadrant (principal); N64.4 Mastodynia
CPT/HCPCS: 76642; 77062; 77063; 77066; G0279

== ENCOUNTER 2023-10-31 08:07 | Outpatient (RCR) | payer OTHER, SELFPAY | END 2023-11-29 23:59 | LOC: NS 08:07 | PROVIDERS: PCP Family Medicine; Referring Provider Obstetrics & Gynecology; Visit Provider Obstetrics & Gynecology | DX: Z71.3 Dietary counseling and surveillance (principal); E66.9 Obesity, unspecified; Z68.30 Body mass index [BMI] 30.0-30.9, adult | CPT/HCPCS: 97803 ==

== ENCOUNTER 2023-12-27 08:32 | Outpatient (RCR) | payer OTHER, SELFPAY | END 2023-12-28 23:59 | LOC: NS 08:32 | PROVIDERS: PCP Family Medicine; Referring Provider Obstetrics & Gynecology; Visit Provider Obstetrics & Gynecology | DX: Z71.3 Dietary counseling and surveillance (principal); E66.9 Obesity, unspecified; Z68.30 Body mass index [BMI] 30.0-30.9, adult | CPT/HCPCS: 97803 ==

== ENCOUNTER 2024-01-02 06:04 | Day surgery (SDC) | payer OTHER, SELFPAY ==
[2024-01-02] VITALS (7 sets, daily range): BP systolic 98–120; BP diastolic 66–84; PULSE 54–61; RESP 10–16; TEMP 36.1–36.4; O2SAT 96–100; BMI 30.2
--- OUTSIDE RECORDS SUMMARY | 2024-01-02 06:14 | XMS RPT_ITS | CCD ---
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 Name Role Phone DANIELLA MILLS Attending Unavailable RAHUL AYALA Primary Care Unavailable Nellie Zaman Unavailable Tanphaichitr - Benavides, Papito Unavailable Isiah Villatoro Unavailable Toni eRyes Unavailable Jamir Snyder Unavailable Ken Todd Unavailable Jaun Robb Unavailable Unavailable Navya Angeles Unavailable Unavailable Elle Pugh Unavailable Unavailable Sol Robb Unavailable Unavailable Unavailable Unavailable Allergies Allergy Classification Reported Allergen(s) Allergy Type Date of Onset Reaction(s) Facility (1 source) Sulfamethoxazole / Trimethoprim; Translations: [Bactrim *ANTI-INFECTIVE AGENTS - [facility].*] Drug Allergy [facility] Work Phone: Medications Completed/Discontinued Medications Medication Drug Class(es) Dates Sig (Normalized) Sig (Original) acetaminophen 325 mg / butalbital 50 mg / caffeine 40 mg oral tablet (1 source) Barbiturate, Central Nervous System Stimulant, Methylxanthine take 1 tablet by mouth every eight hours as needed for headache BUTALBITAL-APAP- CAFFEINE, 50-325-40MG (Oral Tablet) 1 q 8 hours prn headache (50-325-40 MG) Inactive acetaminophen 300 mg / HYDROcodone bitartrate 7.5 mg oral tablet (2 sources) Opioid Agonist Start: 11-28-2016 End: 11-22-2017 Vicodin ES 7.5-300 MG Oral Tablet 1 (one) Tablet Tablet q6-8hrs prn for 0 days Quantity: 30 {Tablet} Refills: 0 Ordered: 22-Nov-2017 Elle Pugh LPN Start : 28-Nov-2016 End : 22-Nov-2017 Inactive Problems Active Problems Problem Classification Problem Date Documented Da te Episodic/Chronic Anxiety disorders (7 sources) Anxiety; Translations: [Anxiety] 12-30-2019 Chronic Past or Other Problems Problem Classification Problem Date Documented Da te Episodic/Chronic Abdominal pain (4 sources) Flank pain; Translations: [Acute abdominal pain] Resolved: 04-07-2009 12-30-2019 Episodic Results Test Name Value Interpretation Reference Range Facil ity Vital Signs Date Time Vital Sign Value Performing Clinician Facility 12-30-2019 12:01-0500 BMI (Body Mass Index) 28.82 kg/m2 [facility] Work Phone: 12-30-2019 12:01-0500 Body Temperature 97.8 [degF] [facility] Work Phone: Encounters Encounter Date Encounter Type Care Provider Facility Start: 01-14-2020 End: 01-14-2020 Annotation/Addendum [facility] Start: 12-30-2019 End: 12-30-2019 Office outpatient visit 15 minutes [facility] Start: 12-24-2019 End: 12-24-2019 Annotation/Addendum [facility] Start: 12-23-2019 End: 12-23-2019 Annotation/Addendum [facility] Start: 12-20-2019 End: 12-20-2019 Office outpatient visit 25 minutes [facility] Start: 02-10-2019 End: 02-10-2019 Emergency department patient visit DANIELLA GENE Facility:[facility] Start: 07-20-2018 End: 07-20-2018 Office outpatient visit 15 minutes [facility] Start: 07-10-2018 End: 07-10-2018 Annotation/Addendum [facility] Start: 01-26-2018 End: 01-26-2018 Annotation/Addendum [facility] Start: 01-26-2018 End: 01-26-2018 Office outpatient visit 15 minutes [facility] Start: 01-22-2018 End: 01-22-2018 Annotation/Addendum Nellie Velezoralnimesh [facility] Start: 01-11-2018 End: 01-11-2018 Office outpatient visit 15 minutes [facility] Start: 12-25-2017 End: 12-25-2017 Annotation/Addendum Nell[facility] Velezoralnimesh [facility] Start: 12-22-2017 End: 12-22-2017 Office outpatient visit 15 minutes [facility] Start: 12-18-2017 End: 12-18-2017 Periodic preventive med est patient 40-64yrs Nellie Austyn [facility] Start: 11-27-2017 End: 11-27-2017 Phone Encounter [facility] Velezoralnimesh [facility] Start: 11-22-2017 End: 11-23-2017 Office outpatient visit 15 minutes [facility] Start: 10-18-2017 End: 10-18-2017 Office outpatient visit 15 minutes [facility] Start: 11-28-2016 End: 11-28-2016 Office outpatient visit 25 minutes [facility] Start: 09-15-2016 End: 09-15-2016 Phone Encounter [facility] Start: 09-13-2016 End: 09-13-2016 Phone Encounter [facility] Braxtonnimesh [facility] Start: 09-12-2016 End: 09-12-2016 Nursing evaluation of patient and report [facility] Start: 08-31-2016 End: 08-31-2016 Phone Encounter [facility] Start: 08-30-2016 End: 08-30-2016 Phone Encounter [facility] Start: 08-23-2016 End: 08-24-2016 Patient encounter procedure [facility] Start: 06-21-2016 End: 06-21-2016 Patient encounter procedure [facility] Start: 06-08-2016 End: 06-08-2016 Patient encounter procedure [facility] Start: 01-12-2016 End: 01-12-2016 Office outpatient visit 15 minutes [facility] Start: 12-14-2015 End: 12-14-2015 Office outpatient visit 15 minutes [facility] Start: 02-25-2015 End: 02-25-2015 Phone Encounter Nellie Austyn [facility] Start: 02-17-2015 End: 02-17-2015 Office outpatient visit 15 minutes [facility] Start: 02-04-2015 End: 02-04-2015 Office outpatient visit 25 minutes [facility] Start: 02-03-2015 End: 02-03-2015 Office outpatient visit 25 minutes [facility] Start: 01-21-2015 End: 01-21-2015 Annotation/Addendum [facility] Start: 01-19-2015 End: 01-21-2015 Office outpatient visit 15 minutes [facility] Start: 01-16-2015 End: 01-16-2015 Office outpatient visit 25 minutes [facility] Start: 07-09-2014 End: 07-09-2014 Annotation/Addendum [facility] Start: 04-04-2014 End: 04-04-2014 Phone Encounter [facility] Start: 04-01-2014 End: 04-01-2014 Patient encounter procedure [facility] Start: 01-03-2014 End: 01-03-2014 Patient encounter procedure [facility] Start: 10-04-2013 End: 10-04-2013 Patient encounter procedure [facility] Start: 08-29-2013 End: 08-29-2013 Patient encounter procedure [facility] Start: 05-29-2013 End: 05-29-2013 Phone Encounter [facility] Start: 12-28-2012 End: 12-28-2012 Patient encounter procedure [facility] Start: 12-13-2012 End: 12-13-2012 Phone Encounter [facility] Start: 07-23-2012 End: 07-23-2012 Patient encounter procedure [facility] Start: 03-27-2012 End: 03-27-2012 Patient encounter procedure [facility] Start: 03-13-2012 End: 03-13-2012 Phone Encounter [facility] Start: 03-02-2012 End: 03-02-2012 Patient encounter procedure [facility] Start: 02-09-2012 End: 02-09-2012 Phone Encounter Nellie Z[facility] Start: 01-26-2011 End: 01-26-2011 Patient encounter procedure [facility] Start: 06-02-2010 End: 06-02-2010 Patient encounter procedure [facility] Start: 01-27-2010 End: 01-27-2010 Office outpatient visit 15 minutes [facility] Braxtonnimesh [facility] Start: 11-11-2009 End: 11-11-2009 Office outpatient visit 25 minutes [facility]xtonnimesh [facility] Start: 10-21-2009 End: 10-21-2009 Patient encounter procedure Nellie Z[facility] Start: 05-06-2009 End: 05-06-2009 Historical Summary [facility] Braxtonnimesh [facility] Start: 08-20-2008 End: 08-20-2008 Office outpatient visit 25 minutes [facility]xtonnimesh [facility] Start: 07-24-2008 End: 07-24-2008 Office outpatient visit 25 minutes [facility]xtonnimesh [facility] Start: 07-21-2008 End: 07-21-2008 Patient encounter procedure [facility]xtonnimesh [facility] Start: 06-10-2008 End: 06-10-2008 Office outpatient visit 25 minutes [facility]xtonnimesh [facility] Start: 01-07-2008 End: 01-07-2008 Patient encounter procedure Nellie Z[facility] Start: 12-04-2007 End: 12-04-2007 Patient encounter procedure Nellie Zaman [facility] Start: 10-31-2007 End: 10-31-2007 Patient encounter procedure [facility] Braxtonnimesh [facility] Start: 08-03-2007 End: 08-03-2007 Office outpatient visit 15 minutes [facility]nimesh [facility] Start: 05-22-2007 End: 05-22-2007 Patient encounter procedure [facility]xtonnimesh [facility] Start: 04-10-2007 End: 04-10-2007 Patient encounter procedure [facility] Braxtonnimesh [facility] Start: 09-15-2006 End: 09-18-2006 Patient encounter procedure Nellie Zaman [facility] Start: 07-11-2006 End: 07-11-2006 Historical Summary [facility] Braxtonnimesh [facility] Procedures Date Procedure Procedure Detail Performing Clinician Start: 12-20-2019 End: 12-21-2019 Knee 4 or More Views Comments: See Note; NOTES: [facility] [address] [place] [address] Knee 4 or More Views MR#: [id number] Acct: [id number] Name: KRISTI VELARDE Rep #: [id number] : 1970 F 49 From: Valentino Surehs MD PCP: Rahul Ayala MD Status: REG CLI Study: Knee 4 or More Views Date of Exam: 12/20/19 Exam# [id number] Ordering Dr: Nellie Zaman STUDY: X-RAY - RIGHT KNEE REASON FOR EXAM: Female, 49 years old. Knee pain after fall TECHNIQUE: 4 view(s) of the knee. COMPARISON: None. FINDINGS: Normal visualized distal femur. Normal visualized proximal tibia and fibula. Normal proximal tibiofibular articulation. Normal medial femorotibial compartment. Normal lateral femorotibial compartment. Normal patellofemoral articulation. The soft tissue structures are unremarkable. RAD/Knee 4 or More Views IMPRESSION: Normal x-ray examination of the knee. Electronically Signed: Melvin Suresh MD at 9:27 EST , Service support , CC: LENI Zaman; Rahul Ayala MD Prepress Technician: Signed Nellie Zaman Work Phone: Start: 01-06-2018 End: 01-08-2018 SCREENING MAMM (CAD), BILAT Comments: See Note; NOTES: [facility] [address] [place] [address] SCREENING MAMM (CAD), BILAT MR#: [id number] Acct: [id number] Name: KRISTI VELARDE Rep #: [id number] : 1970 F 47 From: Moise Sandy MD PCP: Nellie Zaman NP Status: REG CLI Study: SCREENING MAMM (CAD), BILAT Date of Exam: 01/06/18 Exam# [id number] Ordering Dr: Nellie Zaman MAMMOGRAPHY - BILATERAL [...] delay biopsy of a clinically suspicious abnormality. [id number] Electronically Signed: Moise Sandy MD at 8:15 EDT Tel [phone], Service support , CC: Nellie Zaman NP Prepress Technician: Signed Nellie Zaman Work Phone: Start: 08-23-2016 End: 08-23-2016 Transvaginal Non- Comments: See Note; NOTES: [facility] [address] [place] [address] Verdana 4d Transvaginal Non- MR#: [id number] Acct: [id number] Name: KRISTI VELARDE Rep #: [id number] : 1970 F 46 From: Steve David DO PCP: Luís Daly Status: REG CLI Study: Transvaginal Non- Date of Exam: 08/23/16 Exam# [id number] Ordering Dr: Luís Daly STUDY: ULTRASOUND TRANSVAGINAL CLINICAL: Female, 46 years old. Heavy bleeding with clots TECHNIQUE: Transvaginal COMPARISON: None. FINDINGS: Normal uterine size measuring 13.5 x 5.9 x 5.2 cm in maximal craniocaudal dimension. Questionable ill-defined posterior fibroid measuring 3.4 x 3.2 x 2.4 cm.. Normal endometrial thickness measuring 7 mm. There are no endometrial masses, and there is no fluid in [...] Steve David DO at 18:58 EDT Tel [phone], Service support [phone], CC: Luís Daly Prepress Technician: Signed Luís Daly Work Phone: Start: 08-23-2016 End: 08-23-2016 Abdomen/Pelvis without Cont Comments: See Note; NOTES: [facility] [address] [place] [address] Verdana 4d Abdomen/Pelvis without Cont MR#: [id number] Acct: [id number] Name: KRISTI VELARDE Rep #: [id number] : 1970 F 46 From: Moise Sandy MD PCP: Luís Daly Status: REG CLI Study: Abdomen/Pelvis without Cont Date of Exam: 08/23/16 Exam# [id number] Ordering Dr: Luís Daly STUDY: CT ABDOMEN AND PELVIS WITHOUT [...] contrast, and without intravenous contrast. Sagittal and coronal images were reconstructed. Individualized dose optimization techniques were used for this CT. COMPARISON: None. FINDINGS: The visualized lung bases are unremarkable. The visualized portions of the heart are within normal limits. Normal liver. Normal gallbladder and extrahepatic biliary system. Normal spleen. Normal pancreas. Normal bilateral adrenal glands. Normal right kidney. Normal left kidney. Normal visualized stomach. Normal small intestine. Scattered sigmoid diverticula. There are surgical clips in the region of the appendix consistent with a prior appendectomy. Normal abdominal aorta. Normal inferior vena cava. Normal retroperitoneum. Normal urinary bladder. Normal abdominal wall. Normal osseous structures. CT/Abdomen/Pelvis without Cont IMPRESSION: Scattered sigmoid diverticula. Electronically Signed: Moise Sandy MD at 13:54 EDT Tel [phone], Service support [phone], CC: Luís Daly Prepress Technician: Signed Luís Daly Work Phone: Start: 08-23-2016 End: 08-23-2016 Pelvic (Non ) Comments: See Note; NOTES: [facility] [address] [place] [address] Verdana 4d Pelvic (Non ) MR#: [id number] Acct: [id number] Name: KRISTI VELARDE Rep #: [id number] : 1970 F 46 From: Steve David DO PCP: Luís Daly Status: REG CLI Study: Pelvic (Non ) Date of Exam: 08/23/16 Exam# [id number] Ordering Dr: Luís Daly STUDY: ULTRASOUND TRANSVAGINAL CLINICAL: Female, 46 years old. Heavy bleeding with clots TECHNIQUE: Transvaginal COMPARISON: None. FINDINGS: Normal uterine size measuring 13.5 x 5.9 x 5.2 cm in maximal craniocaudal dimension. Questionable ill-defined posterior fibroid measuring 3.4 x 3.2 x 2.4 cm.. Normal endometrial thickness measuring 7 mm. There are no endometrial masses, and there is no fluid in [...] Steve David DO at 18:58 EDT Tel [phone], Service support [phone], CC: Luís Daly Prepress Technician: Signed Luís Daly Work Phone: Start: 06-16-2016 End: 06-18-2016 Extremity Non Vasc Complete Comments: See Note; NOTES: [facility] [address] [place] [address] Verdana 4d Extremity Non Vasc Complete MR#: [id number] Acct: [id number] Name: KRISTI VELARDE Rep #: [id number] : 1970 F 45 From: Anahy Marrufo MD PCP: Luís Daly Status: REG CLI Study: Extremity Non Vasc Complete Date of Exam: 06/16/16 Exam# [id number] Ordering Dr: Luís Daly STUDY: SUPERFICIAL ULTRASOUND - ANTERIOR RIGHT LEG REASON FOR EXAM: Female, 46 years old. The patient has a indentation in the soft tissues of the right anterior leg intermittently. This is not present currently. TECHNIQUE: A superficial ultrasound was performed with real-time and static jeter-scale imaging. COMPARISON: Are radiographs of the right leg dated June 08, 2016. FINDINGS: Multiple static jeter images of the palpable abnormality reveal no evidence or abnormality. US/Extremity Non Vasc Complete IMPRESSION: No sonographic evidence for mass. Electronically Signed: Anahy Marrufo MD at 4:04 EDT , Service support [phone], CC: Luís Daly Prepress Technician: Signed Luís Daly Work Phone: Start: 06-15-2016 End: 2016 Nuclear Stress Test - Treadmil Comments: See Note; NOTES: [facility] [address] [place] [address] Verdana 4d Nuclear Stress Test - Treadmil MR#: [id number] Acct: [id number] Name: KRISTI VELARDE Rep #: [id number] : 1970 45 From: George Rodriguez MD Primary Care: Luís Daly Status: REG CLI Ordering Dr: Luís Daly Sex: F A DATE OF SERVICE: A 45-year-old with a history of chest pain. Resting EKG demonstrates normal sinus rhythm with a rate of 78 beats per minute. Normal intervals are noted. Resting blood pressure was 132/84. The patient exercised according to a regular Cliff protocol for a total duration of 10 minutes completing 1 minute into stage 4 of the Cliff protocol. The maximum heart rate attained was 148 beats per minute, which was 84% of maximum predicted heart rate. Maximum workload attained was 12.6 METs. At rest, there were no ST or T-wave changes noted to suggest ischemia. At peak exercise, upsloping ST changes were noted, which did not meet the criteria for ischemia. During recovery, diffuse T-wave inversions were noted in the inferolateral leads. No clinical angina was noted. The test was terminated due to leg fatigue. Resting blood pressure was 132/84 with a peak blood pressure of 152/96. No clinical angina was noted. MYOCARDIAL PERFUSION PROTOCOL: 11.5 mCi of sestamibi was injected at rest. The patient exercised according to a regular Cliff protocol for a total duration of 10 minutes attaining 84% of maximum predicted heart rate and a workload of 12.6 METs. At peak exercise, 34.0 mCi of sestamibi was injected. Stress images were obtained. Stress and rest images were reconstructed and compared [...] at a high workload. 2. Preserved ejection fraction. 3. No clinical angina present. George Rodriguez MD T: NTS JOB: [id number] 06/17/16 0803 <Electronically signed by George Rodriguez MD> Date George Rodriguez MD CC: Luís Daly Date Dictated: 06/15/16902 Date Transcribed: 06/15/16902 Prepress Technician: Signed Luís Daly Work Phone: Start: 06-08-2016 End: 06-08-2016 Venous Duplex Lower Extremity Comments: See Note; NOTES: [facility] [address] [place] [address] Venous Duplex US, Unilateral 06/08/16 1300 MR#: [id number] Acct: [id number] Name: KRISTI VELARDE Rep #: [id number] : 1970 45 From: Karthik Cohn MD Attending Dr: Luís Daly Status: REG CLI Ordering Dr: Luís Daly Date: 06/08/16 Location: [facility] Sex: F A Admitted: Reason For Study: RLE Swelling RIGHT LEFT GSV [...] called and/or faxed to Dr. Daly. Interpretation Summary Deep veins of the right lower extremity are patent and compressible segmentally. There is no evidence of right lower extremity deep vein thrombosis. Valvular competence appears intact within the proximal deep venous system on the right . The right greater saphenous vein appears patent and compressible segmentally. Ordering Physician: Luís Daly Referring Physician: Kait Medrano Performed By: Marilyn Crisostomo, RDCS, RVT 06/08/161816 Date Karthik Cohn MD CC: Kait Medrano MD; Luís Daly Date Dictated: 06/08/16 1300 Date Transcribed: 06/08/161816 Prepress Technician: Signed Shanel Reddy Work Phone: Start: 06-08-2016 End: 06-08-2016 Tibia AND Fibula 2 Views Comments: See Note; NOTES: [facility] [address] [place] [address] Verdana 4d Tibia AND Fibula 2 Views MR#: [id number] Acct: [id number] Name: KRISTI VELARDE Rep #: [id number] : 1970 F 45 From: Reed Tapia MD PCP: Kait Medrano MD Status: REG CLI Study: Tibia AND Fibula 2 Views Date of Exam: 06/08/16 Exam# [id number] Ordering Dr: Luís Daly STUDY: X-RAY - [...] at 13:53 EDT Tel , Service support [phone], CC: Kait Medrano MD; Luís Daly Prepress Technician: Signed Luís Daly Work Phone: Appendectomy Jaun Robb section Jaun dixon Plan of Treatment Date Care Activity Detail Author Start: 12-30-2019 Procedure Education Eprescribed prescriptions (G8553) [facility] Work Phone: Start: 12-30-2019 Provider Instructions for Treatment [facility] Work Phone: Start: 12-20-2019 Procedure Education Eprescribed prescriptions (G8553) [facility] Work Phone: Start: 12-20-2019 Provider Instructions for Treatment Follow up in 10 days [facility] Work Phone: Start: 07-20-2018 Comprehensive metabolic panel Metabolic Panel, Comprehensive (86560) [facility] Work Phone: Start: 07-20-2018 Procedure Education Eprescribed prescriptions (G8553) [facility] Work Phone: Start: 07-20-2018 Provider Instructions for Treatment Follow up in 3 months [facility] Work Phone: Start: 07-10-2018 Iron [Mass/Vol] Iron (30635) [facility] Work Phone: Start: 07-10-2018 Ferritin [Mass/Vol] Ferritin (51545) [facility] Work Phone: Start: 07-10-2018 Blood count complete auto&auto difrntl wbc CBC, Platelets & Auto Diff (80381) [facility] Work Phone: Start: 07-10-2018 Comprehensive metabolic panel Metabolic Panel, Comprehensive (98076) [facility] Work Phone: Start: 07-10-2018 HbA1c (Bld) [Mass fraction] HGB A1C (34733) [facility] Work Phone: Start: 05-01-2018 25 hydroxy includes fractions if performed CALCIFEDIOL (90127) [facility] Work Phone: Start: 05-01-2018 Ferritin [Mass/Vol] FERRITIN (74023) [facility] Work Phone: Start: 05-01-2018 Iron [Mass/Vol] IRON (69215) [facility] Work Phone: Start: 05-01-2018 Blood count complete auto&auto difrntl wbc CBC, Platelets & Auto Diff (97926) [facility] Work Phone: Start: 01-26-2018 Procedure Education Eprescribed prescriptions (G8553) [facility] Work Phone: Start: 01-11-2018 Patient Education Urinary Tract Infection in Women *: bladder infection [facility] Work Phone: Start: 01-11-2018 Procedure Education Eprescribed prescriptions (G8553) [facility] Work Phone: Start: 01-11-2018 Provider Instructions for Treatment Follow up if no improvement or if symptoms worsen [facility] Work Phone: Start: 12-22-2017 Procedure Education Eprescribed prescriptions (G8553) [facility] Work Phone: Start: 12-18-2017 Hpv, dna, amp probe HPV, Reflex (81503) [facility] Work Phone: Start: 12-18-2017 Procedure Education Eprescribed prescriptions (G8553) [facility] Work Phone: Start: 12-18-2017 Provider Instructions for Treatment [facility] Work Phone: Start: 11-22-2017 Procedure Education Eprescribed prescriptions (G8553) [facility] Work Phone: Start: 10-18-2017 Procedure Education Eprescribed prescriptions (G8553) [facility] Work Phone: Start: 10-18-2017 Provider Instructions for Treatment Follow up if no improvement or if symptoms worsen [facility] Work Phone: Start: 11-28-2016 Procedure Education Eprescribed prescriptions (G8553) [facility] Work Phone: Start: 11-28-2016 Culture bct isol&prsmptv id isolate ea urine URINE ABRAHAM CULTURE-IDENTIFICATN (91220) [facility] Work Phone: Start: 09-15-2016 Culture bacterial quanttative colony count urine URINE ABRAHAM CULTURE-MIC COL COUNT (62897) [facility] Work Phone: Start: 09-13-2016 Culture bacterial quanttative colony count urine URINE ABRAHAM CULTURE-MIC COL COUNT (94786) [facility] Work Phone: Start: 08-30-2016 25 hydroxy includes fractions if performed CALCIFEDIOL (56986) [facility] Work Phone: Payers Date Payer Category Payer Private Health Insurance [id number] 1970 Unknown [id number] Unknown [employer] Social History Date Type Detail Facility Caffeine Use Caffeine Use [facility] Work Phone: Summary Purpose Family History Unknown Family Member Name Dates Details Father Comments:High Cholesterol Status:Active Advance Directives No Advanced Directives Records Found Instructions Name Dates Details How to access health informa tion online Indication:Current nonsmoker (Renamed from Current non-smoker) Start:30-Dec-2019 Instruction Type:Patient Education How to access health informa tion online - Detail Indication:Current nonsmoker (Renamed from Current non-smoker) Start:30-Dec-2019 Instruction Type:Patient Education Patient Instructions Indication:Current nonsmoker (Renamed from Current non-smoker) Start:30-Dec-2019 Instruction Type:Provider Instructions for Treatment How to access health informa tion online Indication:Current nonsmoker (Renamed from Current non-smoker) Start:20-Dec-2019 Instruction Type:Patient Education How to access health informa tion online - Detail Indication:Current nonsmoker (Renamed from Current non-smoker) Start:20-Dec-2019 Instruction Type:Patient Education Patient Instructions Indication:Urinary frequency Start:20-Dec-2019 Instruction Type:Provider Instructions for Treatment How to access health informa tion online Indication:Current nonsmoker (Renamed from Current non-smoker) Start:20-Jul-2018 Instruction Type:Patient Education How to access health informa tion online - Detail Indication:Current nonsmoker (Renamed from Current non-smoker) Start:20-Jul-2018 Instruction Type:Patient Education Patient Instructions Indication:Current nonsmoker (Renamed from Current non-smoker) Start:20-Jul-2018 Instruction Type:Provider Instructions for Treatment How to access health informa tion online Indication:Cloudy urine Start:26-Jan-2018 Instruction Type:Patient Education How to access health informa tion online - Detail Indication:Cloudy urine Start:26-Jan-2018 Instruction Type:Patient Education Patient Instructions Indication:Cloudy urine Start:26-Jan-2018 Instruction Type:Provider Instructions for Treatment How to access health informa tion online Indication:Current nonsmoker (Renamed from Current non-smoker) Start:11-Jan-2018 Instruction Type:Patient Education How to access health informa tion online - Detail Indication:Current nonsmoker (Renamed from Current non-smoker) Start:11-Jan-2018 Instruction Type:Patient Education Patient Instructions Indication:Cloudy urine Start:11-Jan-2018 Instruction Type:Provider Instructions for Treatment How to access health informa tion online Indication:Flank pain Start:22-Dec-2017 Instruction Type:Patient Education How to access health informa tion online - Detail Indication:Flank pain Start:22-Dec-2017 Instruction Type:Patient Education Patient Instructions Indication:Current nonsmoker (Renamed from Current non-smoker) Start:22-Dec-2017 Instruction Type:Provider Instructions for Treatment How to access health informa tion online Indication:Flank pain Start:18-Dec-2017 Instruction Type:Patient Education How to access health informa tion online - Detail Indication:Flank pain Start:18-Dec-2017 Instruction Type:Patient Education Patient Instructions Indication:Flank pain Start:18-Dec-2017 Instruction Type:Provider Instructions for Treatment How to access health informa tion online Indication:Painful urination Start:22-Nov-2017 Instruction Type:Patient Education How to access health informa tion online - Detail Indication:Painful urination Start:22-Nov-2017 Instruction Type:Patient Education Patient Instructions Indication:Painful urination Start:22-Nov-2017 Instruction Type:Provider Instructions for Treatment How to access health informa tion online Indication:UTI (urinary tract infection) Start:18-Oct-2017 Instruction Type:Patient Education How to access health informa tion online - Detail Indication:UTI (urinary tract infection) Start:18-Oct-2017 Instruction Type:Patient Education Patient Instructions Indication:UTI (urinary tract infection) Start:18-Oct-2017 Instruction Type:Provider Instructions for Treatment How to access health informa tion online Indication:Vomiting Start:28-Nov-2016 Instruction Type:Patient Education How to access health informa tion online - Detail Indication:Vomiting Start:28-Nov-2016 Instruction Type:Patient Education Patient Instructions Indication:Vomiting Start:28-Nov-2016 Instruction Type:Provider Instructions for Treatment How to access health informa tion online Indication:Vaginal bleeding, abnormal Start:23-Aug-2016 Instruction Type:Patient Education How to access health informa tion online - Detail Indication:Vaginal bleeding, abnormal Start:23-Aug-2016 Instruction Type:Patient Education Patient Instructions Indication:Vaginal bleeding, abnormal Start:23-Aug-2016 Instruction Type:Provider Instructions for Treatment How to access health informa tion online Indication:Cloudy urine Start:21-Jun-2016 Instruction Type:Patient Education How to access health informa tion online - Detail Indication:Cloudy urine Start:21-Jun-2016 Instruction Type:Patient Education Patient Instructions Indication:Cloudy urine Start:21-Jun-2016 Instruction Type:Provider Instructions for Treatment How to access health informa tion online Indication:Right leg swelling Start:08-Jun-2016 Instruction Type:Patient Education How to access health informa tion online - Detail Indication:Right leg swelling Start:08-Jun-2016 Instruction Type:Patient Education Patient Instructions Indication:Right leg swelling Start:08-Jun-2016 Instruction Type:Provider Instructions for Treatment How to access health informa tion online Indication:Dysmenorrhea Start:12-Jan-2016 Instruction Type:Patient Education How to access health informa tion online - Detail Indication:Dysmenorrhea Start:12-Jan-2016 Instruction Type:Patient Education Patient Instructions Indication:Dysmenorrhea Start:12-Jan-2016 Instruction Type:Provider Instructions for Treatment How to access health informa tion online Indication:Menopausal symptom Start:14-Dec-2015 Instruction Type:Patient Education How to access health informa tion online - Detail Indication:Menopausal symptom Start:14-Dec-2015 Instruction Type:Patient Education Patient Instructions Indication:Menopausal symptom Start:14-Dec-2015 Instruction Type:Provider Instructions for Treatment How to access health informa tion online Indication:Hypertension, essential, benign Start:17-Feb-2015 Instruction Type:Patient Education How to access [place] - Detail Indication:Hypertension, essential, benign Start:17-Feb-2015 Instruction Type:Patient Education Patient Instructions Indication:Hypertension, essential, benign Start:17-Feb-2015 Instruction Type:Provider Instructions for Treatment Patient Instructions Indication:Hypertension Start:03-Feb-2015 Instruction Type:Provider Instructions for Treatment Patient Instructions Indication:Nausea Start:19-Jan-2015 Instruction Type:Provider Instructions for Treatment Patient Instructions Indication:Migraine with aura and without status migrainosus, not intractable Start:16-Jan-2015 Instruction Type:Provider Instructions for Treatment Patient Instructions Indication:Encounter for general adult medical examination with abnormal findings Start:01-Apr-2014 Instruction Type:Provider Instructions for Treatment Patient Instructions Indication:Hypertension Start:04-Oct-2013 Instruction Type:Provider Instructions for Treatment Patient Instructions Indication:Hypertension Start:29-Aug-2013 Instruction Type:Provider Instructions for Treatment Patient Instructions Indication:Hypertension, essential, benign Start:28-Dec-2012 Instruction Type:Provider Instructions for Treatment Patient Instructions Indication:Low back pain without sciatica, unspecified back pain laterality Start:23-Jul-2012 Instruction Type:Provider Instructions for Treatment Additional Source Comments INFORMATION SOURCE (unrecogn ized section and content) FOR RECORDS PERTAINING TO PATIENTS WHO ARE OR HAVE BEEN ENROLLED IN A CHEMICAL DEPENDENCY/SUBSTANCEABUSE PROGRAM, SOME INFORMATION MAY BE OMITTED. This clinical summary was aggregated from multiple sources. Caution should be exercised in using it in the provision of clinical care. This summary normalizes information from multiple sources, and as a consequence, information in this document may materially change the coding, format and clinical context of patient data. In addition, data may be omitted in some cases. CLINICAL DECISIONS SHOULD BE BASED ON THE PRIMARY CLINICAL RECORDS. [employer] provides no warranty or guarantee of the accuracy or completeness of information in this document.
[2024-01-02] MEDS: Lactated Ringers 1,000 ML 15 ML IV (06:52)
[2024-01-02 07:15] LABS: Hematocrit 40.7 % (37-47); Hemoglobin 13.2 g/dL (12.0-15.0); Mean Corp Hgb Conc 32.4 g/dL (32-36); Mean Corpuscular Hgb 28.3 pg (27.0-32.0); Mean Corpuscular Volume 87.2 fL (81-99); Mean Platelet Vol. 10.6 fl (6.2-12.0); Platelet Count 259 K/mm3 (150-450); RBC Distribution Width CV 12.9 % (11.6-14.6); RBC Distribution Width SD 40.8 fl (35.1-43.9); Red Blood Count 4.67 M/mm3 (4.2-5.4)
--- NOTE | 2024-01-02 07:20 | HP.PCM_ITS ---
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 Is patient in pain?: No Allergies Sulfa (Sulfonamide Antibiotics) Allergy (Mild, Verified 12/25/23 10:54) Swelling Medications amlodipine 10 mg tablet 10 mg PO QHS 10/11/22 [History Confirmed 12/25/23] hydrochlorothiazide 25 mg tablet 25 mg PO QHS 10/11/22 [History Confirmed 12/25/23] labetalol 200 mg tablet 400 mg PO QHS 10/11/22 [History Confirmed 12/25/23] Lactobacillus acidophilus 1 billion cell tablet 1,000 mmu cells PO DAILY 08/24/23 [History Confirmed 12/25/23] ascorbic acid (vitamin C) 500 mg tablet 500 mg PO DAILY 08/24/23 [History Confirmed 12/25/23] cholecalciferol (vitamin D3) 50 mcg (2,000 unit) capsule 50 mcg PO DAILY 08/24/23 [History Confirmed 12/25/23] lisinopril 40 mg tablet 40 mg PO DAILY 08/24/23 [History Confirmed 12/25/23] Post menopausal: No Patient : No : [facility] History Anemia Back pain Benign heart murmur BMI 30.0-30.9,adult Chest pain Easy bruising Encounter for screening for COVID-19 Female climacteric state Fibroid uterus High triglycerides History of echocardiogram Hypertension Low iron Non-smoker Other obesity Post-menopausal Postmenopausal bleeding Shortness of breath on exertion Sleep apnea SOB (shortness of breath) Vitamin D deficiency Surgical History History of Hx of appendectomy S/P cystoscopy (~10/13/22) Family History Mother HypertensionFather HypertensionAunt Cancer spinal cancer Social History (Reviewed 12/25/23 @ 10:53 by [place] Person Smoking Status: Never smoker alcohol intake: current alcohol intake frequency: holidays/special occasions only substance use type: does not use caffeine: Yes Type: coffee Number of servings: 2 what type of physical activity do you participate in: none seatbelt use: always do you feel safe at home: Yes additional social history: -Serafin [facility] D&C Details: KRISTI MARIE is a 53 year old who presents for a preoperative exam. She is scheduled for a hysteroscopy D&C for some postmenopausal spotting. Her ultrasound showed a slightly thickened lining of 4.5 mm. History 2 Elective abortions Hx Para 2 Spontaneous abortions Hx # Term Pregnancies Ectopic pregnancies Hx # Pregnancies Multiple births # of living children Past Pregnancies Del. Date Name GA/Weeks Outcome Route Bth Weight Infant Gen Labor Lgth Anesthesia Del Locatn Provider FOB Unknown Joel Unknown Vaneeda ROS Const ROS Unobtainable: All systems reviewed & are unremarkable except as noted in H Resp Resp: Reports system reviewed and no additional complaints, except as documented; Denies cough GI GI: Reports as per HPI Psych Psych: Reports system reviewed and no additional complaints, except as documented Exam Const General: cooperative, healthy appearing, comfortable and no acute distress Resp Effort & Inspection: normal respiratory effort Skin General: no rashes or lesions noted Psych Appearance: grossly normal Speech and Movement: speech and movement normal Coding Level of Care Code Off vis,est,level 3 Diagnoses Endometrial thickening on ultrasound R93.89 Assessment and Plan Assessment and Plan (1) Endometrial thickening on ultrasound: Status: Acute Plan: After discussing the patient's diagnosis and treatment plan options, patient wishes to proceed with surgical management. I have discussed with the patient the risks, benefits, and alternatives of the procedure which include but are not limited to risks of anesthesia, bleeding, infection, possible damage to bowel, bladder, or surrounding vasculature which could lead to additional surgery to evaluate any complications. Patient agrees to procedure and wishes to proceed. ACOG/uptodate references given for additional information regarding procedure. plan for hysteroscopy D&C on 01/02/24
--- NOTE | 2024-01-02 07:30 | EMB_PTH ---
PATHOLOGY RESULTS PATIENT: KRISTI MARIE [place] [facility] [id number] AGE/SX: 53/F ROOM: RE01/02/[address]: Dr. Ursula Altamirano DO : 1970 BED: DIS: 01/02/2024 SPEC #: [id number] RECD: 01/02/24 11:35 STATUS: GERMÁN LUCI #: [id number] WANG: 01/02/24 07:[address]: Ursula Altamirano DEPT: SURGICAL PATHOLOGY RECD BY: Jimena Mosley ENTERED: 01/02/24 11:35 SP TYPE: ENDOM BX/C CHRISTIAN DR: Dr. Arley Ayala MD Tissues: Endometrium, NOS Procedures: Surgery Specimen Level IV HEADER OPERATION: Hysteroscopy, dilation and curettage PRE-OP DIAGNOSIS: Endometrial thickening on ultrasound TISSUE SUBMITTED: Endometrial curettings MICROSCOPIC DIAGNOSIS Endometrial curettings: Fragments of endometrial polyp with simple endometrial hyperplasia without atypia. Fragments of myometrium. See comment. IZA:felipe 01/03/2024 COMMENT Correlation with clinical findings and appropriate follow up are necessary. Case has been reviewed in consultation with Dr. Thompson who concurs with the above diagnosis. IDC:AM MICROSCOPIC DESCRIPTION Slides are reviewed. GROSS DESCRIPTION Received in fixative is one container labeled with the patient's name and designated endometrial curettings. The specimen consists of a fragment of lambert-pink polyp measuring 1.0 x 1.5 x 0.3 cm. Also present in the container are multiple fragments of pink soft tissue measuring in aggregate 2.5 x 1.2 x 0.2 cm. The entire specimen is submitted in two cassettes. Cassette 2 contains the polyp. / IZA:felipe 01/02/2024 TC:5 CPT: 84488
[2024-01-02] MEDS: Lidocaine 1% (20 ml mdv) 20 ML Vial (07:43)
[2024-01-02 07:44] LABS: ALB/GLOB Ratio 0.9 RATIO (0.9-2.4); AST(SGOT) 17 U/L (15-37); Alanine Aminotransfer ALT/SGPT 26 U/L (13-56); Albumin, Serum 3.3 g/dL (3.2-5.0); Alkaline Phosphatase 81 U/L (45-117); Anion Gap 4 (5-15); BUN 19 mg/dL (7-18); BUN/Creat Ratio 19.3 RATIO (10-20); Chloride 108 mmol/L (98-107); Creatinine, Serum 0.99 mg/dL (0.55-1.02); EST Glomerular Filtration Rate 63 mL/min (>60); Est Glom Filt Rate - Afr Amer 76 mL/min (>60); Estimated Creatinine Clearance 53.37 ml/min; Globulin 3.8 g/dL (2.2-4.2); Glucose 97 mg/dL (74-106); Potassium 3.5 mmol/L (3.5-5.1); Protein, Total 7.1 g/dL (6.4-8.2); Sodium Level 140 mmol/L (136-145)
--- NOTE | 2024-01-02 07:55 | OP.PCM_ITS ---
Problems Associated Problem List Diagnoses (1) Endometrial thickening on ultrasound: Report of Operation Date of Procedure: 01/02/24 Pre-Operative Diagnosis: Thickened endometrium, post state Post-Operative Diagnosis: Thickened endometrium, post state Surgery/Procedure Performed:: hysteroscopy dilation and curettage Description of Surgical Findings:: moderate polyp like structure at the right upper aspect of the uterus Surgeon: Ursula Altamirano hvac operations technician: None Type of Anesthesia: MAC and Topical Anesth Anesthesiologist: Ryan Marie Specimen's removed: endometrial curetting's Drains: none Estimated Blood Loss (mL): 10xcc Description of Procedure: Patient was prepped and draped in a normal sterile fashion under MAC anesthesia. A weighted speculum was placed in the vagina and the anterior lip of the cervix was grasped with a single-tooth tenaculum. A paracervical block was placed with 1% lidocaine. Cervix was progressively dilated to allow passage of a 5 mm hysteroscope. The lining was fully visualized and noted to have a moderate sized polyp at the right upper aspect of the uterus . Uterine sounded to 8 cm. Curettage was performed and the polyp structure and curetting's were sent to pathology. All instruments were removed from the vagina and excellent hemostasis was noted. Patient was awoken and taken to recovery in stable condition. Procedure Start Time: 07:43 Procedure Stop Time: 07:52 Complications none Admit VTE Documentation VTE Present on Admission: No VTE Mechan Device Prophylaxis: SCD's VTE Pharm Prophylaxis ordered?: No Multi Select Codes Urinary/Genital Urinary/Genital CPT Codes: 10983 Hysteroscopy,EMC, Polypectomy
--- NOTE | 2024-01-02 07:58 | DCINST_ITS ---
Discharge Instructions Diet Discharge Diet: No restrictions Activity Discharge Activity: Return to Normal Activity, May Shower and May Take a Tub Bath (after 1 week) May resume sexual activity in: 1-2 weeks Weight Bearing Status: Weight bearing as tolerated Lifting Restrictions: none Dressing / Incision Call your doctor if you observe: Fever of 101 or Higher, Using more than 1 pad per hour, Shortness of breath and Uncontrolled pain Follow Up Care Please Follow Up With: Ursula Altamirano DO When: Call [phone] to schedule appointment. Test Results: Test results from this visit will be discussed in further detail at your follow- up appointment, if applicable. Discharge Plan Admission Attending Provider: Ursula Altamirano Primary Care Provider: Rene Ayala Instructions Additional Instructions / Restrictions: Take over the counter motrin 600mg every 6 hours with food as needed for cramping Discharge Orders/Prescriptions Prescriptions: Continued lisinopril 40 mg tablet 40 mg PO QHS Patient Comments: TAKE 1 TABLET BY MOUTH EVERY DAY cholecalciferol (vitamin D3) 50 mcg (2,000 unit) capsule 50 mcg PO DAILY Lactobacillus acidophilus 1 billion cell tablet 1,000 mmu cells PO DAILY ascorbic acid (vitamin C) 500 mg tablet 500 mg PO DAILY labetalol 200 mg Tablet 400 mg PO QHS amlodipine 10 mg Tablet 10 mg PO QHS hydrochlorothiazide 25 mg Tablet 25 mg PO QHS Referrals / Follow Up: Rene Ayala MD [Primary Care Provider] - Disposition Disposition (needs filled in before D/C Order can be placed): Home, Self Care
--- NOTE | 2024-01-02 09:35 | EKG12_ITS ---
Test Reason : PRE-OP Blood Pressure : / mmHG Vent. Rate : 057 BPM Atrial Rate : 057 BPM P-R Int : 194 ms QRS Dur : 088 ms QT Int : 466 ms P-R-T Axes : 011 099 092 degrees QTc Int : 453 ms Sinus bradycardia Otherwise normal ECG Confirmed by Javy Merchant ([id number]), editorial assistant ANN CAMPOS ([id number]) on 01/04/2024 2:37:16 PM Referred By: Ursula Altamirano Confirmed By:Javy Merchant
== END 2024-01-02 10:35 | disposition home or self-care (01) ==
LOC: SDC 06:08 → AC 06:08
PROVIDERS: Anesthesiology; PCP Family Medicine; Referring Provider Obstetrics & Gynecology; Visit Provider Obstetrics & Gynecology
PROC: 0UDB8ZZ Extraction of Endometrium, Via Natural or Artificial Opening Endoscopic (ICD-10-PCS; CPT 58558; principal; 2024-01-02 07:20)
DX: N85.01 Benign endometrial hyperplasia (principal); I10 Essential (primary) hypertension; Z78.0 Asymptomatic menopausal state; Z79.899 Other long term (current) drug therapy
CPT/HCPCS: 58558; 00952; 80053; 85027; 86850; 86900; 86901; 88305; 93005; J7120; J2405

== ENCOUNTER → 2024-02-02 | Outpatient (CLI) | payer OTHER, SELFPAY ==
--- NOTE | 2024-02-02 13:25 | MRI_ITS ---
STUDY: BILATERAL BREAST MR WITHOUT AND WITH CONTRAST REASON FOR EXAM: Female, 53 years old. Right breast lump. TECHNIQUE: Multi-sequence multi-echo imaging of both breasts was performed with a dedicated breast coil. T1-weighted and T2-weighted images were performed before the administration of contrast. T1-weighted images were also performed after the intravenous administration of 12 cc of Clariscan contrast. COMPARISON: Right breast ultrasound dated 10/11/2023, bilateral mammogram dated 10/11/2023 and bilateral mammograms dated 05/08/2023. FINDINGS: RIGHT BREAST: Scattered fibroglandular densities with minimal background enhancement. No abnormal enhancing masses or areas of non-mass enhancement in the right breast. LEFT BREAST: Scattered fibroglandular densities with minimal background enhancement. No abnormal enhancing masses or areas of non-mass enhancement in the right breast. No enlarged or abnormal lymph nodes. No abnormality in the visualized regions of the chest or liver. MRI/Breast Bilateral W/O and W IMPRESSION: No abnormality on the bilateral breast MRI with contrast. One year follow-up mammogram since the most recent comparison bilateral mammogram which would be in September 2024 is recommended. CATEGORY: No abnormality on the breast MRI with contrast. Follow-up screening mammogram in September 2024 recommended. Electronically Signed: Toy Panchal MD at 13:58 EDT ,
== END | disposition home or self-care (01) ==
PROVIDERS: PCP Family Medicine; Referring Provider Obstetrics & Gynecology; Visit Provider Obstetrics & Gynecology
DX: N63.10 Unspecified lump in the right breast, unspecified quadrant (principal); N64.4 Mastodynia
CPT/HCPCS: 77049; A9575; A4216; C8908

== ENCOUNTER 2024-02-08 08:33 | Outpatient (RCR) | payer OTHER, SELFPAY | END 2024-02-27 23:59 | LOC: NS 08:33 | PROVIDERS: PCP Family Medicine; Referring Provider Obstetrics & Gynecology; Visit Provider Obstetrics & Gynecology | DX: Z71.3 Dietary counseling and surveillance (principal); E66.9 Obesity, unspecified; Z68.30 Body mass index [BMI] 30.0-30.9, adult | CPT/HCPCS: 97803 ==

== ENCOUNTER → 2024-02-21 | Outpatient (CLI) | payer OTHER, SELFPAY ==
[2024-02-21 16:33] LABS: Mucous, Urine 0 SEEN /hpf (<or=2+)
[2024-02-21 17:59] LABS: Color, Urine Yellow (Yellow); Glucose, Dipstick Normal (Normal); Ketone-Dipstick 5 mg/dl (Negative); Leukocyte Esterase-Dipstick 500 /ul (Negative); Nitrite-Dipstick Negative (Negative); Occult Blood-Urine 50 /ul (Negative); Protein-Dipstick 30 mg/dl (Negative); Urine Bilirubin Dipstick Negative (Negative); Urine Clarity Cloudy (Clear); Urine Urobilinogen Normal (Normal)
[2024-02-21 18:07] LABS: Bacteria RARE /hpf (None Seen); Squamous Epithelial Cells - UA 0-5 SEEN /hpf (5-10); White Blood Cells >100 SEEN /hpf (0-5)
[2024-02-21 18:08] LABS: Red Blood Cells-Urine 0-5 SEEN /hpf (0-5)
== END | disposition home or self-care (01) ==
PROVIDERS: PCP Family Medicine; Visit Provider Family Medicine
DX: R31.9 Hematuria, unspecified (principal)
CPT/HCPCS: 81001; 87086; 87088

== ENCOUNTER → 2024-04-02 | Outpatient (CLI) | payer OTHER, SELFPAY ==
[2024-04-02 12:41] LABS: Protein, Urine (Random) < 6.0 mg/dL (<11.9)
[2024-04-02 12:55] LABS: Vitamin D,25 Hydroxy 27.6 ng/mL
[2024-04-02 13:31] LABS: Anion Gap 8 (5-15); BUN 17 mg/dL (7-18); BUN/Creat Ratio 17.2 RATIO (10-20); Calcium,Total 9.4 mg/dL (8.5-10.1); Chloride 104 mmol/L (98-107); Creatinine, Serum 0.99 mg/dL (0.55-1.02); EST Glomerular Filtration Rate 63 mL/min (>60); Est Glom Filt Rate - Afr Amer 76 mL/min (>60); Glucose 85 mg/dL (74-106); Potassium 3.8 mmol/L (3.5-5.1); Sodium Level 137 mmol/L (136-145)
== END | disposition home or self-care (01) ==
LOC: LAB 11:33
PROVIDERS: PCP Family Medicine; Referring Provider Internal Medicine Nephrology; Visit Provider Internal Medicine Nephrology
DX: I10 Essential (primary) hypertension (principal); E55.9 Vitamin D deficiency, unspecified
CPT/HCPCS: 36415; 80048; 82306; 82570; 84156

== ENCOUNTER → 2024-05-09 | Outpatient (CLI) | payer OTHER, SELFPAY ==
--- NOTE | 2024-05-09 15:24 | US_ITS ---
EXAM: US PELVIS TRANSVAGINAL CLINICAL INDICATION: fibroid uterus TECHNIQUE: Transvaginal pelvic ultrasound was performed with grayscale and color Doppler imaging. Transvaginal imaging was used for better evaluation of the endometrium and adnexa. COMPARISON: 05/08/2023 FINDINGS: UTERUS/CERVIX: There are hypoechoic masses in the uterus compatible with fibroids. The largest measures 5.4 x 4.7 x 6.2 cm. The other lesion measures 2.8 x 3.2 x 2.5 cm. The uterus measures 9.9 x 7.4 x 7.5 cm. The endometrium measures 8 mm. There is a small amount of fluid distending the endometrium. Anteverted. RIGHT OVARY: The right ovary is not visualized. LEFT OVARY: The left ovary is not visualized. FREE FLUID: None. BLADDER: The bladder measures 6.0 x 4.1 x 8.6 cm for volume of 110 mm. US/Pelvic (Non ) IMPRESSION: Uterine fibroids. There is a small amount of fluid within the endometrial canal. No other abnormalities are identified. Electronically Signed: Kennedy Villeda MD at 0:03 EDT ,
== END | disposition home or self-care (01) ==
LOC: US 15:22
PROVIDERS: PCP Family Medicine; Referring Provider Obstetrics & Gynecology; Visit Provider Obstetrics & Gynecology
DX: D25.9 Leiomyoma of uterus, unspecified (principal)
CPT/HCPCS: 76856

== ENCOUNTER → 2024-11-06 | Outpatient (CLI) | payer OTHER, SELFPAY ==
[2024-11-06 13:06] LABS: Anion Gap 5 (5-15); BUN 13 mg/dL (7-18); BUN/Creat Ratio 12.9 RATIO (10-20); Calcium,Total 9.8 mg/dL (8.5-10.1); Chloride 102 mmol/L (98-107); Creatinine, Serum 1.01 mg/dL (0.55-1.02); EST Glomerular Filtration Rate 61 mL/min (>60); Est Glom Filt Rate - Afr Amer 74 mL/min (>60); Glucose 87 mg/dL (74-106); Potassium 3.8 mmol/L (3.5-5.1); Sodium Level 140 mmol/L (136-145)
[2024-11-06 13:33] LABS: Protein, Urine (Random) 24.5 mg/dL (<11.9); Protein:Creat Ratio 140 mg/g CRE (0-200)
== END | disposition home or self-care (01) ==
LOC: LAB 11:21
PROVIDERS: PCP Family Medicine; Referring Provider Internal Medicine Nephrology; Visit Provider Internal Medicine Nephrology
DX: I10 Essential (primary) hypertension (principal)
CPT/HCPCS: 36415; 80048; 82570; 84156

== ENCOUNTER → 2024-11-07 | Outpatient (CLI) | payer OTHER, SELFPAY ==
--- NOTE | 2024-11-07 13:23 | US_ITS ---
INDICATION: fluid in uterus EXAMINATION: Ultrasound US Pelvis Non OB Complete With Transvaginal Imaging TECHNIQUE: Transabdominal and transvaginal pelvic ultrasound was performed. Grayscale, spectral waveform, and color flow Doppler evaluation of the adnexa. COMPARISON: 05/09/2024. FINDINGS: UTERUS: Anteverted. The uterus measures 9.3 cm in length.. There are multiple uterine fibroids, largest measuring 3.7 cm. The endometrial stripe measures 6 mm in AP diameter which is within normal limits. There is trace free fluid in the endometrial canal. Multiple nabothian cysts. RIGHT OVARY: Not visualized. LEFT OVARY: Measures 1.4 x 1.8 cm. Non-enlarged, normal echogenicity. There is normal arterial inflow and venous outflow present in the left ovary. FREE FLUID: None. US/Pelvic w/ Transvaginal IMPRESSION: Multi fibroid uterus. Trace free fluid in the endometrial canal. Electronically Signed: Arley Jack MD at 22:18 EST ,
== END | disposition home or self-care (01) ==
LOC: US 13:21
PROVIDERS: PCP Family Medicine; Referring Provider Obstetrics & Gynecology; Visit Provider Obstetrics & Gynecology
DX: R93.89 Abnormal findings on diagnostic imaging of other specified body structures (principal)
CPT/HCPCS: 76830; 76856

== ENCOUNTER → 2024-11-25 | Outpatient (CLI) | payer OTHER, SELFPAY ==
[2024-11-25 15:48] LABS: Erythrocyte Sedimentation Rate 21 mm/hr (0-30)
[2024-11-25 15:52] LABS: Hematocrit 42.7 % (37-47); Mean Corp Hgb Conc 32.8 g/dL (32-36); Mean Corpuscular Hgb 28.1 pg (27.0-32.0); Mean Corpuscular Volume 85.7 fL (81-99); Mean Platelet Vol. 11.2 fl (6.2-12.0); Platelet Count 254 K/mm3 (150-450); RBC Distribution Width CV 12.7 % (11.6-14.6); RBC Distribution Width SD 39.6 fl (35.1-43.9); Red Blood Count 4.98 M/mm3 (4.2-5.4); White Blood Count 7.8 K/mm3 (4.4-11.0)
[2024-11-25 15:53] LABS: AST(SGOT) 18 U/L (15-37); Alanine Aminotransfer ALT/SGPT 27 U/L (13-56); Albumin, Serum 3.7 g/dL (3.2-5.0); Alkaline Phosphatase 80 U/L (45-117); Anion Gap 7 (5-15); BUN 18 mg/dL (7-18); BUN/Creat Ratio 21.3 RATIO (10-20); Calcium,Total 9.4 mg/dL (8.5-10.1); Chloride 106 mmol/L (98-107); Cholesterol 202 mg/dL (200); Creatinine, Serum 0.84 mg/dL (0.55-1.02); EST Glomerular Filtration Rate 75 mL/min (>60); Est Glom Filt Rate - Afr Amer 91 mL/min (>60); Globulin 3.8 g/dL (2.2-4.2); Glucose 85 mg/dL (74-106); High Density Lipoprotein 58 mg/dL; Protein, Total 7.5 g/dL (6.4-8.2); Sodium Level 141 mmol/L (136-145); Thyroid Stim Hormone (TSH) 0.768 uIU/mL (0.358-3.740); Triglycerides 253 mg/dL; Very Low Density Lipoprotein 51 mg/dL (5-40)
[2024-11-25 15:54] LABS: Vitamin D,25 Hydroxy 34.1 ng/mL
== END | disposition home or self-care (01) ==
LOC: MFPLAB 12:13
PROVIDERS: PCP Family Medicine; Referring Provider Family Medicine; Visit Provider Family Medicine
DX: I10 Essential (primary) hypertension (principal); H53.9 Unspecified visual disturbance; E55.9 Vitamin D deficiency, unspecified
CPT/HCPCS: 36415; 80053; 80061; 82306; 84443; 85027; 85652

== ENCOUNTER → 2024-11-26 | Outpatient (CLI) | payer OTHER, SELFPAY ==
--- NOTE | 2024-11-26 15:38 | BI_ITS ---
PROCEDURE: SCRN MAMM (CAD)W/DANIEL BILAT REASON FOR EXAM: F, Age 54 y/o, routine mammographic follow-up. TECHNIQUE: Bilateral screening digital breast tomosynthesis with 2D and 3D images. Computer aided detection. COMPARISON: Prior exam(s) dating back to October 11, 2023. FINDINGS: The breasts are heterogeneously dense which may obscure small masses. No suspicious masses, areas of developing architectural distortion, or suspicious calcifications. BI/SCRN MAMM (CAD)W/DANIEL BILAT IMPRESSION: BI-RADS 1: NEGATIVE. RECOMMEND ANNUAL MAMMOGRAPHIC SCREENING. Follow-up code: Routine Follow-up The patient will be notified of the results by letter. Reading Location: [place] [address]
== END | disposition home or self-care (01) ==
PROVIDERS: PCP Family Medicine; Referring Provider Nurse Practitioner Family; Visit Provider Nurse Practitioner Family
DX: Z12.31 Encounter for screening mammogram for malignant neoplasm of breast (principal)
CPT/HCPCS: 77063; 77067

== ENCOUNTER → 2025-06-03 | Outpatient (CLI) | payer OTHER, SELFPAY ==
[2025-06-03 18:25] LABS: Hematocrit 41.2 % (37-47); Hemoglobin 13.3 g/dL (12.0-15.0); Mean Corp Hgb Conc 32.3 g/dL (32-36); Mean Corpuscular Volume 85.8 fL (81-99); Mean Platelet Vol. 11.7 fl (6.2-12.0); Platelet Count 218 K/mm3 (150-450); RBC Distribution Width CV 12.9 % (11.6-14.6); RBC Distribution Width SD 40.2 fl (35.1-43.9); Red Blood Count 4.80 M/mm3 (4.2-5.4); White Blood Count 8.4 K/mm3 (4.4-11.0)
[2025-06-03 19:09] LABS: AST(SGOT) 18 U/L (<=31); Alanine Aminotransfer ALT/SGPT 16 U/L (<=34); Albumin, Serum 4.2 g/dL (3.5-5.0); Alkaline Phosphatase 80 U/L (35-104); Anion Gap 12 (5-15); BUN 16 mg/dL (4-19); BUN/Creat Ratio 18.7 RATIO (10-20); Calcium,Total 9.2 mg/dL (7.6-11.0); Carbon Dioxide 23.3 mmol/L (21.0-32.0); Chloride 106 mmol/L (98-108); Ferritin 59 ng/mL (22-378); Globulin 3.0 g/dL (2.2-4.2); Glucose 88 mg/dL (70-99); Iron 55 ug/dL (50-170); Potassium 4.0 mmol/L (3.3-5.1); Vitamin B12 496 pg/mL (180-914); Vitamin D,25 Hydroxy 27.0 ng/mL (30-100)
== END | disposition home or self-care (01) ==
LOC: MFPLAB 16:41
PROVIDERS: PCP Family Medicine; Referring Provider Family Medicine; Visit Provider Family Medicine
DX: D64.9 Anemia, unspecified (principal); R53.83 Other fatigue
CPT/HCPCS: 36415; 80053; 82306; 82607; 82728; 83540; 84443; 85027

== ENCOUNTER → 2025-07-01 | Outpatient (CLI) | payer OTHER, SELFPAY ==
--- NOTE | 2025-07-01 13:53 | US_ITS ---
PROCEDURE: BREAST LIMITED UNILATERAL 07/01/2025 REASON FOR EXAM: F, Age 55 y/o , BREAST LUMP COMPARISON: Prior mammogram done earlier in the day.. TECHNIQUE: Procedure Code: USBRSTLIMIT Modality: US Procedure: BREAST LIMITED UNILATERAL FINDINGS: Imaging of the lateral half of the right breast was performed. There is evidence of dense fibroglandular tissue. No sonographic abnormality is seen. US/Breast Limited Unilateral IMPRESSION: Dense fibroglandular tissue. No sonographic abnormality is seen. BI-RADS 1: NEGATIVE RECOMMENDATION: Routine annual follow-up in 1 Year Reading Location: [place] [id number]
--- NOTE | 2025-07-01 13:53 | BI_ITS ---
EXAM: DIAG MAMM W/CAD, BILAT N/A CLINICAL HISTORY: F, Age 55 y/o , BREAST PAIN. Right breast lump. No family history. TECHNIQUE: Procedure Code: [id number] Modality: MG Procedure: DIAG MAMM W/CAD, BILAT. COMPARISON: Prior exam(s) dated November 26, 2024. FINDINGS: TISSUE DENSITY: The breasts are heterogeneously dense, which may obscure small masses. Bilateral Breast Mammographic Findings: No significant masses, calcifications or other abnormalities are identified. Stable small benign-appearing bilateral axillary lymph nodes. No suspicious masses, areas of developing architectural distortion, or suspicious calcifications. There has been no significant interval change. BI/DIAG MAMM W/CAD, BILAT IMPRESSION: Stable examination. With the patient's history of right breast lump, targeted sonographic correlation recommended. OVERALL FINAL ASSESSMENT BI-RADS 0: INCOMPLETE - NEED ADDITIONAL IMAGING EVALUATION. RECOMMENDATION: Ultrasound Recommended A letter with findings and recommendations will be mailed to the patient. Reading Location: [place] [address]
== END | disposition home or self-care (01) ==
PROVIDERS: PCP Family Medicine; Referring Provider Obstetrics & Gynecology; Visit Provider Obstetrics & Gynecology
DX: N64.4 Mastodynia (principal)
CPT/HCPCS: 76642; 77062; 77066; G0279